=== PATIENT | female | born 1950 | race Caucasian/White ===

== ENCOUNTER 2020-05-16 06:55 | Inpatient (IN) ==
[~2020-05-16 06:55] MED LIST: HEPARIN (PORCINE) 1000 UNIT/ML 10 ML (CATH LAB USE ONLY) ONE; NITROGLYCERIN/D5W 100MCG/ML 20ML SYR ONE; niCARdipine HCL INJ 2.5 MG/ML 10 ML AMP ONE
[2020-05-16] MEDS ORDERED: fentaNYL citrate 100 MCG/2 ML VIAL ONE ×5 (07:58→15:21)
[2020-05-16] MEDS ORDERED: MIDAZOLAM HCL 1 MG/ML 2ML VIAL ONE ×7 (07:58→15:21)
--- NOTE | 2020-05-16 08:31 | History & Physical Bridge Note ---
Date of Service May 16, 2020 History & Physical Bridge Note I have examined the patient, reviewed the History & Physical and in the interval since the performance of the History & Physical I have noted the following changes of clinical significance: no changes noted
--- NOTE | 2020-05-16 08:32 | Pre Anesthesia Assessment ---
Date of Service May 16, 2020 Pre Sedation Assessment Vital Signs Temp Pulse Resp BP Pulse Ox 05/16/20 07:12 36.5 C 102 H 16 164/90 H 98 Cardiovascular + irregularly irregular + S1 normal and + S2 normal Respiratory normal respiratory effort, lungs clear to auscultation Pre-Sedation Airway Assessment Smoking Status: Former smoker Hx Sleep Apnea: No Short, Thick Neck: No Thyromental Distance: > or= 3.5 Finger Breadths Oral Cavity: + WNL Mallampati Class: III ASA: ASA4 NPO Status Date of Last Intake of Fluids: 05/16/20 Time of Last Intake of Fluids: 06:10 Last Oral Intake of Fluids Comment: sip with meds Date of Last Intake of Solid Food: 05/15/20 Time of Last Intake of Solid Foods: 18:00 Procedure Planning Contraindications for Sedation: none Current Medications Reviewed: Yes Notes The planned sedation has been discussed with the patient. Informed Consent was obtained. I have identified the patient, determined the appropriateness of sedation and have assessed the patient immediately prior to the procedure. All medicine(s) and interventions are by my order.
--- NOTE | 2020-05-16 09:09 | Post Anesthesia Assessment ---
Date of Service May 16, 2020 Post Sedation Assessment Vital Signs Temp Pulse Resp BP Pulse Ox 05/16/20 07:12 36.5 C 102 H 16 164/90 H 98 Recovery Score Activity: Moves 4 extremities Respiration: Deep Breath/Cough Circulation: +/-20% PreAnes Value Consciousness: Fully Awake Oxygen Saturation: > 92% On Room Air Discharge Sedation Level of Care: Phase I Post Sedation Plan On clinical assessment, the patient appears to have tolerated the sedation without complications. Patient is recovering as anticipated. Patient will continue to be monitored by nursing and may be discharged when sedation discharge criteria are met per below protocol. Upon Completions of procedure up to 15 minutes continue every 5 minute vital signs and the P.A.R. score; then discharge to a Phase I or Fast Track to Phase II per the following guidelines: * Discharge Patient to appropriate Phase II area if PAR is 8 or greater or return to pre- procedure baseline. The post - procedure orders will be as directed. * If PAR score is less than 8 or not return to pre-procedure baseline then patient will follow Phase I monitoring till PAR is reached for Phase II. The Phase I may be done in procedure room or may call to secure a Phase I area. * If naloxone or flumazenil are used for reversal, hold in Phase I for continued monitoring from when last reversal dose was given for a minimum of 60 minutes or longer pending the nurse and/or physician discretion of patient condition before discharge to Phase II. Please call the Sedation Physician to re-evaluate and complete post-note for discharge to Phase II area. Do NOT discharge from procedure sedation or Phase 1 until post- sedation evaluation note is complete by procedure /sedation MD Sedation Discharge Instructions to be given to the patient at discharge to home.
--- NOTE | 2020-05-16 09:21 | Cardiac Catheterization ---
Cardiac Cath Procedure Full Procedure Date May 16, 2020 Pre-Procedure Diagnosis Pre-Procedure Diagnosis: Positive Stress Test AUC Score AUC Score: 7 Post-Procedure Diagnosis Post-Procedure Diagnosis: Severe CAD and Normal Intracardiac Pressures Procedure(s) Performed Procedure(s) Performed: Coronary Angiography and Left Heart Cath Supervisor Publications Karl Millan DO It Systems Administrator(s) Ab CORRUGATED FASTENER DRIVER Estimated Blood Loss Estimated Blood Loss: 5cc Medication(s) Medication(s): Fentanyl, Lidocaine 1%, Nicardipine, Nitroglycerin and Versed Summary of Findings 75% proximal LAD Hemodynamics Rest Ao:: 148/82/108 Final Ao: 160/79/113 LV: 158/1/11 Recommendations Recommendations: PCI without planned CABG Specimens Specimens: None Radiation Exposure (mGy) 952 Contrast (mls) 45 Fluids (cc crystalloids) Fluids (cc crystalloids): 100 nss Drains Drains: n/a Anesthesia Moderate sedation. Start 0835. End 0856. Sedation monitor: Liza RN. Procedural Complication(s) None Disposition Patient remained in Garbage Truck Driver for PCI of the LAD I attest to the content of the Intraoperative Record and any orders documented therein. Any exceptions are noted below. ACC Data: Garbage Truck Driver Cardiac Status Clinical evaluation leading to the procedure CAD Presenation: Positive Stress Test Anginal Classification: No Symptoms (Activity limited by hip pain.) Heart Failure: No Stress Echocardiogram: Yes - Positive and Risk/Extent of Ischemia (Intermediate) Coronary Anatomy Dominant: Right Left Main (% Stenosis): Normal LAD (% Stenosis): Proximal (75%), Mid (20%) and Distal (30%) D1 (% Stenosis): Ostial (60%) Circumflex (% Stenosis): Mid (20%) OM1 (% Stenosis): Normal (1.5mm vesssel) OM2 (% Stenosis): Normal L PL1 (% Stenosis): Normal RCA (% Stenosis): Proximal (20%) and Mid (20%, mild calcification) R PDA (% Stenosis): Normal R PL1 (% Stenosis): Normal R PL2 (% Stenosis): Normal Diagnostic Physicians Name: Karl Millan DO Status: Elective Closure Device Percutaneous Entry Location: Radial Closure Device: Radial Band Recommendations: PCI without planned CABG Intraprocedure Events Significant Disection: No Perforation: No
[2020-05-16] MEDS ORDERED: HEPARIN (PORCINE) 1000 UNIT/ML 10 ML (CATH LAB USE ONLY) ONE ×2 (09:31→13:51)
[2020-05-16] MEDS ORDERED: CLOPIDOGREL BISULFATE 300 MG TAB ONE (09:59)
--- NOTE | 2020-05-16 10:03 | Post Anesthesia Assessment ---
Date of Service May 16, 2020 Post Sedation Assessment Vital Signs Temp Pulse Resp BP Pulse Ox 05/16/20 07:12 97.7 F 102 H 16 164/90 H 98 Recovery Score Activity: Moves 4 extremities Respiration: Deep Breath/Cough Circulation: +/-20% PreAnes Value Consciousness: Fully Awake Oxygen Saturation: > 92% On Room Air Discharge Sedation Level of Care: Fast Track Phase II Post Sedation Plan On clinical assessment, the patient appears to have tolerated the sedation without complications. Patient is recovering as anticipated. Patient will continue to be monitored by nursing and may be discharged when sedation discharge criteria are met per below protocol. Upon Completions of procedure up to 15 minutes continue every 5 minute vital signs and the P.A.R. score; then discharge to a Phase I or Fast Track to Phase II per the following guidelines: * Discharge Patient to appropriate Phase II area if PAR is 8 or greater or return to pre- procedure baseline. The post - procedure orders will be as directed. * If PAR score is less than 8 or not return to pre-procedure baseline then patient will follow Phase I monitoring till PAR is reached for Phase II. The Phase I may be done in procedure room or may call to secure a Phase I area. * If naloxone or flumazenil are used for reversal, hold in Phase I for continued monitoring from when last reversal dose was given for a minimum of 60 minutes or longer pending the nurse and/or physician discretion of patient condition before discharge to Phase II. Please call the Sedation Physician to re-evaluate and complete post-note for discharge to Phase II area. Do NOT discharge from procedure sedation or Phase 1 until post- sedation evaluation note is complete by procedure /sedation MD Sedation Discharge Instructions to be given to the patient at discharge to home.
--- NOTE | 2020-05-16 10:05 | Post Operative Brief Note ---
Cardiology Brief Post Op Date of Surgery May 16, 2020 Pre & Post Diagnosis Coronary artery disease Procedure -- Medical I D Sales Rafiq Baker MD Production Dispatcher Ab Estimated Blood Loss 15 Findings See Below Severe proximal LAD disease at bifurcation with D1. Successful PCI of proximal LAD with single JACK (2.5 x 18 mm Bon; post-dilated with 3.5 NC). Anesthesia Type RN Sedation Complications none Disposition Disposition: Recovery Room Overlapping Procedure I was present for: the critical portions of procedure.
[2020-05-16] MEDS ORDERED: hydrALAZINE HCL 20 MG/ML VIAL ONE (12:38)
[2020-05-16] MEDS ORDERED: NITROGLYCERIN SL 0.4 MG/TAB TAB ONE (13:15)
[2020-05-16] MEDS ORDERED: METOPROLOL TARTRATE 1 MG/ML VIAL IV ONE (13:15)
[2020-05-16] MEDS ORDERED: NOREPINEPHRINE BITARTRATE 1 MG/ML 4 ML VIAL (CATH LAB USE ONLY) ONE (13:33)
[2020-05-16] MEDS ORDERED: MoRPHine SULFATE 2 MG/ML CARP ONE (13:36)
[2020-05-16] MEDS ORDERED: niCARdipine HCL INJ 2.5 MG/ML 10 ML AMP ONE (13:51)
[2020-05-16] MEDS ORDERED: NITROGLYCERIN/D5W 100MCG/ML 20ML SYR ONE (13:52)
[2020-05-16] MEDS ORDERED: RAPID SEQUENCE INDUCTION BAG ONE (13:56)
[2020-05-16] MEDS ORDERED: PROPOFOL IV EMULSION 10 MG/ML 20 ML VIAL IV ONE (14:00)
--- NOTE | 2020-05-16 14:13 | Cardiology Progress Note ---
Date of Service May 16, 2020 Assessment & Plan (1) Presence of stent in LAD coronary artery: (2) Pericardial effusion: Patient reassessed after having had presented for outpatient diagnostic cardiac catheterization which yielded high-grade LAD lesion for which patient underwent PCI, LAD stent. While recovering, patient noted to have shortness of breath and hypotension. Patient was placed in Trendelenburg position, IV fluids were initiated, and systolic blood pressure was as low as 70 mmHg, improved to 90 mmHg with fluid resuscitation. Stat bedside echocardiogram was performed and reviewed by the undersigned as well as Dr. Baker, with findings of normal biventricular chamber size, normal biventricular systolic function, no regional wall motion abnormalities, no evidence of myocardial perforation. Patient was found to have an enlarging circumferential pericardial effusion with echodensity within the pericardial space consistent with fresh coagulum. Arrangements have been made for emergent pericardiocentesis to be performed by Dr. Baker of interventional cardiology. Due to current visitation restrictions related to the ID- pandemic, there are no visitors permitted at the bedside or in the post procedure waiting room. I therefore called the patient's , Zeus, and updated him with regards to the developments and plan. Subjective Patient seen at the bedside in room 1 of the cardiac recovery suite. Shortness of breath and hypotension noted on recovering status post cardiac catheterization with PCI, stent to the LAD performed earlier today. Dr. Baker already at the bedside at the time of my arrival. Physical Exam Physical Exam: Temp Pulse Resp BP Pulse Ox 36.5 C 88 18 110/82 95 05/16/20 07:12 05/16/20 13:15 05/16/20 13:15 05/16/20 13:15 05/16/20 13:15 Ill in appearance Results & Data ([facility]) Vital Signs (Past 12 Hours) Vital Signs Temp Pulse Resp BP Pulse Ox 05/16/20 13:15 88 18 110/82 95 05/16/20 13:00 100 H 18 127/106 H 98 05/16/20 12:45 84 18 143/101 H 96 05/16/20 12:30 96 H 18 152/106 H 99 05/16/20 12:15 100 H 18 148/105 H 99 05/16/20 12:00 88 18 182/108 H 99 05/16/20 11:45 90 18 156/102 H 97 05/16/20 11:30 99 H 18 148/98 H 97 05/16/20 11:15 99 H 18 139/116 H 97 05/16/20 11:00 94 H 18 173/109 H 97 05/16/20 10:45 85 18 170/89 H 97 05/16/20 10:30 99 H 18 155/99 H 97 05/16/20 10:15 108 H 18 167/110 H 97 05/16/20 10:05 88 18 158/111 H 98 05/16/20 07:12 36.5 C 102 H 16 164/90 H 98
--- NOTE | 2020-05-16 14:17 | Anesthesia Procedure Note ---
Anesthesia Procedure Note Intubation Note Vital Signs: called to boat laborer for emergent intubation - LAD stent placed earlier today - now with pericardial effusion and respiratory distress - intubation needed for procedure to resolve issue. Pt on norepi drip and with that vitals have been stable. O2 sats remained in high 90's throughout. Indication for intubation: Respiratory distress Consent: Risk / Benefits Reviewed With: Emergency Monitors attached: Blood Pressure, CO2, EKG and Pulse Oximetry Time out completed: Yes Premedication: Propofol (mg) (70) and Etomidate (mg) (12) Paralytic medication: Succinylcholine (mg) Intubation technique: Adequate preoxygenation (O2 as could - patient fighting mask), RSI and Cricoid pressure Equipment: MAC (3) and Glidescope View: Grade 2 Endotracheal tube: 7.0 Attempts: 1 and Atraumatic Tube placement confirmation: auscultation and Positive CO2 detection Post-procedure: Pt hemodynamically stable and No complication
[2020-05-16] MEDS ORDERED: ICU PROTOCOL FOR HYPERGLYCEMIA PRN (14:18)
--- NOTE | 2020-05-16 15:23 | History & Physical Report ---
Date of Service May 16, 2020 Assessment & Plan (1) Cardiac tamponade: Pt underwent PCI with single JACK to proximal LAD today - subsequently in recovery, she developed acute onset of SOB and hypotension. On stat ECHO noted to have pericardial effusion with tamponade - s/p pericardiocentesis this afternoon. Now in ICU post-procedure. Intubated in analytical laboratory technician prior to pericardiocentesis but post-procedure was successfully extubated. Levophed drip successfully discontinued. - Monitor closely in ICU - Additional management per cardiology and critical care (2) Pericardial effusion: See plan for #1 (3) CAD (coronary artery disease): s/p JACK to LAD today - Monitor in ICU - Management per cardiology (4) Chronic atrial fibrillation: Anticoagulation currently on hold - Currently tachycardic but metoprolol on hold due to hypotension. Continue to monitor closely (5) Dyslipidemia: On rosuvastatin at baseline - will use Lipitor while pt admitted (6) HTN (hypertension): On metoprolol and Cozaar as outpatient - currently on hold due to hypotension. Will monitor and resume once more stable and BP improves (7) Hypothyroidism: Checking TSH - will resume levothyroxine dose based on that result (8) Type 2 diabetes mellitus: - ICU hyperglycemia protocol - consult pharm for glycemic management Pt seen and reviewed with collaborating physician Dr. Love. Plan of care discussed and as outlined above. Case discussed with cardiology, Dr. Marino. Martin Ceballos PA-C History of Present Illness Chief Complaint: Abnormal stress test Primary Care Provider: Thompson Berger MD This is a 69 y/o female with a PMH of atrial fibrillation on chronic anticoagulation, DM2, hypothyroidism, HTN, dyslipidemia, and obesity who presented for an outpatient diagnostic cardiac catheterization due to an abnormal stress test. Pt was initially scheduled to undergo total hip arthoplasty this month but pre-operative work-up included an abnormal dobutamine stress test that was borderline positive for inducible ischemia. Surgery was postponed and diagnostic cath was scheduled for today. Procedure revealed LAD stenosis so converted to a therapeutic cath and drug-eluting stent placed in the proximal LAD. Post-cath, pt apparently developed shortness of breath and hypotension with SBP as low as 70. Stat ECHO revealed an enlarging pericardial effusion with tamponade so pt taken emergency back to analytical laboratory technician for a pericardiocentesis. Emergently intubated prior to second procedure. We have been asked to assist with the ICU admission to our service. Pt seen in the ICU post-procedure and is currently confused and agitated due to the sedation so history was unobtainable. [facility] records and [facility] charts were extensively reviewed. Allergies Allergy/AdvReac Type Severity Reaction Status Date / Time dofetilide [From Tikosyn] AdvReac Tachycardia Verified 05/16/20 07:23 Home Medications Medication Instructions Recorded Confirmed Type Rybelsus 7 mg PO DAILY 05/16/20 05/16/20 History apixaban 5 mg PO BID 05/16/20 05/16/20 History aspirin [Ecotrin Low Strength] 81 mg PO DAILY 14 Days #14 tab 05/16/20 Rx clopidogrel 75 mg PO DAILY #30 tab 05/16/20 Rx cyanocobalamin (vitamin B-12) 1,000 mcg PO DAILY 05/16/20 05/16/20 History digoxin 250 mcg PO DAILY 05/16/20 05/16/20 History levothyroxine [Synthroid] 50 mcg PO DAILY 05/16/20 05/16/20 History losartan [Cozaar] 100 mg PO DAILY 05/16/20 05/16/20 History metformin 1,000 mg PO BID 05/16/20 05/16/20 History metoprolol succinate 200 mg PO DAILY 05/16/20 05/16/20 History rosuvastatin [Crestor] 5 mg PO DAILY 05/16/20 05/16/20 History Past Med/Surg History Medical History Chronic atrial fibrillation Dyslipidemia HTN (hypertension) Hypothyroidism Obesity Type 2 diabetes mellitus Surgical History History of appendectomy History of cataract surgery Family History Mother Diabetes Uterine cancer Sister Diabetes Kidney disease Father Heart disease Hypertension Kidney disease Social History Smoking Status: Former smoker Hx Alcohol Use: Yes Hx Substance Use: No Beliefs That Will Affect Care: None Current Living Situation: Spouse Feels Safe at Home: Yes Safety Concerns: Feels Safe At This Time Assistive Devices: Cane Review of Systems Review of Systems: Unobtainable due to cognitive status Physical Exam Constitutional: WD/WN, vitals as above agitated, frequently yelling Neck: trachea midline Respiratory: Auscultation: lungs clear to auscultation bilaterally, + diminished lung sounds (but poor inspiratory effort) and + wheezes; no rales and no rhonchi Cardiovascular: Rate/Rhythm: + tachycardic and + irregularly irregular Extremities: no pedal edema Gastrointestinal (Abdomen): Inspection/Auscultation: normal bowel sounds; abdomen not distended Percussion/Palpation: abdomen soft Musculoskeletal: mitts in place on bilateral hands Skin: no rashes, warm and dry Neurologic: + confused Results & Data Results & Data ([facility]) Vital Signs (Past 12 Hours) Vital Signs Temp Pulse Resp BP Pulse Ox 05/16/20 13:15 88 18 110/82 95 05/16/20 13:00 100 H 18 127/106 H 98 05/16/20 12:45 84 18 143/101 H 96 05/16/20 12:30 96 H 18 152/106 H 99 05/16/20 12:15 100 H 18 148/105 H 99 05/16/20 12:00 88 18 182/108 H 99 05/16/20 11:45 90 18 156/102 H 97 05/16/20 11:30 99 H 18 148/98 H 97 05/16/20 11:15 99 H 18 139/116 H 97 05/16/20 11:00 94 H 18 173/109 H 97 05/16/20 10:45 85 18 170/89 H 97 05/16/20 10:30 99 H 18 155/99 H 97 05/16/20 10:15 108 H 18 167/110 H 97 05/16/20 10:05 88 18 158/111 H 98 05/16/20 07:12 36.5 C 102 H 16 164/90 H 98 Laboratory Results Laboratory Results - last 24 hr 05/16/20 05/16/20 05/16/20 09:27 09:48 15:16 POC Hgb 13.6 POC Hct 40 Activ Coag Time Kaolin 219 H 235 H POC pH 7.33 L POC pCO2 47 H POC pO2 > 420 H POC HCO3 25 H POC Total CO2 26 POC Base Excess -1.0 POC ABG O2 Sat 100.0 H POC Sodium 139 POC Potassium 4.3 Medications Administered Discontinued Medications Fentanyl Citrate (Fentanyl Citrate 100 Mcg/2 Ml Vial) Confirm Administered Dose 100 mcg .ROUTE .STTagMan-MED ONE Stop: 05/16/20 07:59 Last Increment: 05/16/20 09:57 Dose: 75 mcg Documented by: [id number] Heparin Sodium (Porcine) (Heparin (Porcine) 1000 Unit/Ml 10 Ml (Heel Room Supervisor Use Only)) Confirm Administered Dose 10,000 units .ROUTE .STTagMan-MED ONE Stop: 05/16/20 06:55 Last Admin: 05/16/20 09:38 Dose: 10,000 units Documented by: [id number] Heparin Sodium (Porcine) (Heparin (Porcine) 1000 Unit/Ml 10 Ml (Heel Room Supervisor Use Only)) Confirm Administered Dose 10,000 units .ROUTE .BringMeTheNews-MED ONE Stop: 05/16/20 09:32 Last Admin: 05/16/20 09:57 Dose: 6,000 units Documented by: [id number] Heparin Sodium/Sodium Chloride (Heparin In Nss Infusion 1000 Unit/500 Ml (2 U/Ml) Bag) Confirm Administered Dose 3,000 units IV .BringMeTheNews-MED ONE Stop: 05/16/20 06:56 Last Admin: 05/16/20 08:13 Dose: 3,000 units Documented by: [id number] Hydralazine HCl (Hydralazine Hcl 20 Mg/Ml Vial) Confirm Administered Dose 20 mg .ROUTE .STTagMan-MED ONE Stop: 05/16/20 12:39 Last Increment: 05/16/20 12:41 Dose: 10 mg Documented by: [id number] Midazolam HCl (Midazolam Hcl 1 Mg/Ml 2ml Vial) Confirm Administered Dose 2 mg .ROUTE .STTagMan-MED ONE Stop: 05/16/20 07:59 Last Admin: 05/16/20 08:52 Dose: 2 mg Documented by: [id number] Midazolam HCl (Midazolam Hcl 1 Mg/Ml 2ml Vial) Confirm Administered Dose 2 mg .ROUTE .STTagMan-MED ONE Stop: 05/16/20 08:58 Last Admin: 05/16/20 09:39 Dose: 2 mg Documented by: [id number] Nicardipine HCl (Nicardipine Hcl Inj 2.5 Mg/Ml 10 Ml Amp) Confirm Administered Dose 25 mg .ROUTE .STTagMan-MED ONE Stop: 05/16/20 06:55 Last Admin: 05/16/20 08:13 Dose: 25 mg Documented by: [id number] Nitroglycerin/Dextrose (Nitroglycerin/D5w 100mcg/Ml 20ml Syr) Confirm Administered Dose 2,000 mcg .ROUTE .[facility] ONE Stop: 05/16/20 06:56 Last Admin: 05/16/20 08:13 Dose: 2,000 mcg Documented by: [id number] Code Status & VTE Plan VTE Prophylaxis Plan VTE Prophylaxis will be ordered: Yes Supervising Physician Co-Signing Physician Notes Patient is a 69-year-old female with history of chronic atrial fibrillation on anticoagulation, diabetes mellitus, hypothyroidism and other medical problems was seen and examined after having elective PCI for LAD stenosis for an abnormal outpatient stress test and urgent pericardiocentesis for cardiac tamponade. Patient unable to provide much history secondary to preprocedural sedation. She is currently extubated. Alert awake but not oriented. Most of the history is obtained from records, card boxer and outpatient records. Please review HPI for complete details of presentation. On exam patient is obese, mild distress, normocephalic atraumatic, EOMI, lungs are clear to auscultation, normal breath sounds, irregularly irregular, tachycardia, no murmur, trace pedal edema, abdomen soft, nontender, normal bowel sounds, complete neuro exam could not be performed currently. Grossly able to move all extremities. Patient is admitted for management of cardiac tamponade, coronary artery disease s/p PCI, atrial fibrillation. Continue aspirin, Plavix as per cardiology. Started on Lipitor. Check lipid panel. Hold anticoagulation for now. Check thyroid function tests. Resume levothyroxine as able. Hold Metformin. Utilize insulin therapy while hospitalized. Resume metoprolol, digoxin when blood pressure is more stable. Appreciate bottle and glass inspector, cardiology input. I personally reviewed the record. Patient is interviewed and examined at bedside. Patient's care is coordinated with Lula Ceballos PA-C . Please refer to the documentation above for details of patient's presentation and for discussion of other issues. (1) Type 2 diabetes mellitus Diabetes mellitus complication status: without complication Diabetes mellitus residential insulin use: without residential use Qualified Code(s): E11.9 - Type 2 diabetes mellitus without complications (2) Hypothyroidism Hypothyroidism type: unspecified Qualified Code(s): E03.9 - Hypothyroidism, unspecified (3) HTN (hypertension) Hypertension type: unspecified Qualified Code(s): I10 - Essential (primary) hypertension
[2020-05-16 15:29] LABS: iSTAT Arterial Blood Gas HCO3 25 meg/L (19-24); iSTAT Arterial Blood Gas pCO2 47 mmHg (35-46); iSTAT Arterial Blood Gas pH 7.33 (7.35-7.45); iSTAT Arterial Blood Gas pO2 > 420 mmHg (80-95); iSTAT Carbon Dioxide 26 mmol/L (24-31); iSTAT Hematocrit 40 % (37-47); iSTAT Hemoglobin 13.6 g/dl (12.0-16.0); iSTAT Potassium 4.3 mmol/L (3.3-5.0); iSTAT Sodium 139 mmol/L (135-144)
[2020-05-16] MEDS ORDERED: SODIUM CHLORIDE 0.9% 1000ML 750 ML IV SCH (15:30)
--- NOTE | 2020-05-16 16:33 | Critical Care Consultation ---
Date of Consultation May 16, 2020 Assessment & Plan (1) Cardiac tamponade: Reason Critically Ill: 69 yo F PMHx AFib on chronic AC, DM2, CAD, HTN, hypothyroidism who presented to hospital today for cardiac catheterization for positive stress test during pre-operative clearance for hip arthroplasty. Today had PCI to proximal LAD performed, and in recovery became hypotensive to 70s systolic. Bedside Echo showed enlarged circumferential pericardial effusion and patient was taken for emergent pericardiocentesis. Patient was emergently intubated in procedure. Admitted to ICU due to intubation and post- pericardiocentesis for cardiac tamponade. Neuro Sedation: none Analgesia: Morphine 2mg q4h prn pain. - No history of neurologic disorder. Was not hypoxic prior to intubation. Received Versed, propofol, Fentanyl for intubation and procedure but no sedation currently. - Was intubated on minimal settings; now extubated and saturating well. - Is tracking and opens eyes to voice, and is oriented to name and , however not to place or circumstance. Requires frequent reminding that she is in the hospital and that she cannot get out of bed right now. - 1:1 sitter ordered until patient is more oriented. - Consider Haldol prn agitation if patient continues to be disoriented despite pain medication and time off from sedatives. Cardiac Cardiac tamponade: - This afternoon post-catheterization patient became suddenly hypotensive and was found on Echo to have enlarging circumferential pericardial effusion. - Taken to OR by Dr. Baker for emergent pericardiocentesis. - Was on norepinephrine for pressure support prior to pericardiocentesis; has since been titrated off and BP stable. CAD: - Underwent dobutamine stress Echo on 05/07 which was abnormal. - Today had elective catheterization which showed proximal LAD stenosis. - PCI x1 performed. - Hgb A1c, lipid panel in AM. - Hold home metoprolol, losartan in the setting of hypotension. Resume when patient's BP returns to normotension. - Continue DAPT. Atrial fibrillation: - At home is on Eliquis for anticoagulation and metoprolol for rate control. - Hold Eliquis in setting of acute bleeding. - Hold metoprolol in setting of hypotension. Respiratory - Was intubated on minimal settings 2/2 pain and hypotension prior to procedure; now extubated and saturating well. - Unclear if patient has a history of ANU/OHS. BiPAP on standby if needed. GI - Ulcer ppx with Protonix IV. RENAL/LYTES - - No history of kidney disease. - BMP with creatinine 0.77. - Mg 1.77, repleted with Mg Sulfate 1g IV x1. - Repeat BMP AM. - - No present concerns. - Wilcox for now for strict Is/Os. ENDO - - No history of thyroid disease. TSH with AM labs. DM2: - BSG 162 on admission. - Hold Rybelsus. ICU hyperglycemia protocol. - Hgb A1c with AM labs. HEME - No previous Hgb on file. Hgb today 13.6 immediately post-procedure. - With large bloody pericardial effusion today. - Monitor H/H closely given 200cc pericardial effusion. ID - No present infectious concerns. - WBC count 10.83. - Monitor fever curve. INTEGUMENTARY - Catheterization site is clean and dry and without hematoma. - Pericardial drain in place, draining minimally. LINES/IV ACCESS - PIVs intact. - Pericardial drain. - Wilcox. DVT PROPHYLAXIS - SCDs. CODE STATUS - FULL CODE. Thank you for allowing us to be part of this patient's care. Please refer to Dr. Moreno's documentation for any further recommendations. (2) CAD (coronary artery disease): (3) Presence of stent in LAD coronary artery: (4) Type 2 diabetes mellitus: (5) Hypothyroidism: (6) HTN (hypertension): (7) Dyslipidemia: (8) Chronic atrial fibrillation: Supervising Physician Co-Signing Physician Notes Dr. Baird was the resident-physician during care of patient. I separately evaluated patient for loya portions of the history and the exam. I was present during the critical portion of medical decision making, and I discussed the case with the resident. I generally agree with the findings and plan except for any additions/exceptions noted. Patient seen and examined at bedside. She was intubated at time of examination. She was on CPAP 5 getting good tidal volumes breathing at 21-22. Although she was not following commands. She was moving all her extremities. Patient is s/p pericardiocentesis which was likely a complication from cardiac cath which the patient came in with. Patient has catheter in the pericardium placed. We will try to extubate the patient and see how she does. Pain medication. We will keep the patient on 1 is to 1 as patient is still delirious could be from pain or from the sedation that she got. QTC is 440. Haloperidol 2.5 mg every 6 hours as needed. Please note the above document was generated using voice recognition software. It may contain grammatical, syntax or spelling errors.Any formal questions or concerns about the content, text or information contained within the body of this dictation should be directly addressed to the provider for clarification. History of Present Illness Reason for Consultation: Cardiac tamponade post-pericardiocentesis; intubated Requesting Physician: Dr. Marino, Cardiology. Attending Physician: Govind Love MD History of Present Illness 69 yo F PMHx AFib on chronic AC, DM2, CAD, HTN, hypothyroidism who presented to hospital today for cardiac catheterization for positive stress test during pre- operative clearance for hip arthroplasty. Today had PCI to proximal LAD performed, and in recovery became hypotensive to 70s systolic. Bedside Echo showed enlarged circumferential pericardial effusion and patient was taken for emergent pericardiocentesis. Patient was emergently intubated in procedure. Patient was not hypoxic prior to intubation. Admitted to ICU due to intubation and post-pericardiocentesis for cardiac tamponade. On my interview patient is oriented to name and date of , but keeps forgetting she is in the hospital. Complains of substernal chest pain at the area near her drain site, and a sensation of shortness of breath. No complaints of abdominal pain, headache. Still somewhat sedated postpericardiocentesis. Oxygenating well on 2 L nasal cannula, drain with minimal output. Tachycardic to 110s, BP normotensive. Allergies Allergy/AdvReac Type Severity Reaction Status Date / Time dofetilide [From Tikosyn] AdvReac Tachycardia Verified 05/16/20 07:23 Home Medications Medication Instructions Recorded Confirmed Type Rybelsus 7 mg PO DAILY 05/16/20 05/16/20 History apixaban 5 mg PO BID 05/16/20 05/16/20 History aspirin [Ecotrin Low Strength] 81 mg PO DAILY 14 Days #14 tab 05/16/20 Rx clopidogrel 75 mg PO DAILY #30 tab 05/16/20 Rx cyanocobalamin (vitamin B-12) 1,000 mcg PO DAILY 05/16/20 05/16/20 History digoxin 250 mcg PO DAILY 05/16/20 05/16/20 History levothyroxine [Synthroid] 50 mcg PO DAILY 05/16/20 05/16/20 History losartan [Cozaar] 100 mg PO DAILY 05/16/20 05/16/20 History metformin 1,000 mg PO BID 05/16/20 05/16/20 History metoprolol succinate 200 mg PO DAILY 05/16/20 05/16/20 History rosuvastatin [Crestor] 5 mg PO DAILY 05/16/20 05/16/20 History Patient History Medical History Chronic atrial fibrillation Dyslipidemia HTN (hypertension) Hypothyroidism Obesity Type 2 diabetes mellitus Surgical History History of appendectomy History of cataract surgery Family History Mother Diabetes Uterine cancer Sister Diabetes Kidney disease Father Heart disease Hypertension Kidney disease Social History Smoking Status: Former smoker Hx Alcohol Use: Yes Hx Substance Use: No Beliefs That Will Affect Care: None Current Living Situation: Spouse Feels Safe at Home: Yes Safety Concerns: Feels Safe At This Time Assistive Devices: Cane Review of Systems Review of Systems: All systems reviewed & are unremarkable except as noted in HPI & below Constitutional: no fever, no chills and no malaise Respiratory: + dyspnea (Subjective, saturating well on 2 L nasal cannula); no cough Cardiovascular: + chest pain; no palpitations and no edema Gastrointestinal: no abdominal pain Neurologic: no headache(s) Physical Exam Physical Exam: VITAL SIGNS - Vital signs and nursing notes were reviewed. GENERAL - 69 yo F well developed, obese, intermittently distressed asking to get out of bed. SKIN - Without rashes. Catheterization site without hematoma. Pericardial drain with minimal drainage. HEAD - NC/AT. EYES - PERRL. Sclera anicteric. Palpebral conjunctiva pink and moist with no injection noted. EARS - No deformities of external structures noted on gross examination bila terally. NOSE - Midline and without cyanosis. No epistaxis or purulent drainage noted. MOUTH/OROPHARYNX - No perioral cyanosis. NECK - Supple to palpation. No nuchal rigidity. LUNGS - Clear to auscultation bilaterally, poor air movement throughout. Oxygen saturation 96% on room air. CARDIAC - Heart rate irregularly irregular. No murmur, rubs, or gallops appreciated. ABDOMEN - Soft, nontender, nondistended, normal bowel sounds. EXTREMITIES - No clubbing or peripheral cyanosis. No peripheral edema present. Radial and dorsalis pedis pulses palpated bilaterally. NEUROLOGIC - Moves all extremities equally. Alert to voice, eyes track, oriented to name and date of but not to place or situation. Results & Data Results & Data ([facility]) Vital Signs (Past 12 Hours) Vital Signs Temp Pulse Resp BP Pulse Ox 05/16/20 13:15 88 18 110/82 95 05/16/20 13:00 100 H 18 127/106 H 98 05/16/20 12:45 84 18 143/101 H 96 05/16/20 12:30 96 H 18 152/106 H 99 05/16/20 12:15 100 H 18 148/105 H 99 05/16/20 12:00 88 18 182/108 H 99 05/16/20 11:45 90 18 156/102 H 97 05/16/20 11:30 99 H 18 148/98 H 97 05/16/20 11:15 99 H 18 139/116 H 97 05/16/20 11:00 94 H 18 173/109 H 97 05/16/20 10:45 85 18 170/89 H 97 05/16/20 10:30 99 H 18 155/99 H 97 05/16/20 10:15 108 H 18 167/110 H 97 05/16/20 10:05 88 18 158/111 H 98 05/16/20 07:12 36.5 C 102 H 16 164/90 H 98 Resident Activity Tracking Resident Involvement: Resident Care Provided Care Provided: Adult Hospital Medicine
[2020-05-16 16:48] LABS: Basophils # (auto) 0.02 K/uL (0-0.2); Basophils % (auto) 0.2 %; Eosinophils # (auto) 0.03 K/uL (0-0.5); Eosinophils % (auto) 0.3 %; Hematocrit (blood only) 39.2 % (37-47); Immature Granulocytes # (auto) 0.01 K/uL (0.00-0.02); Immature Granulocytes % (auto) 0.1 %; Lymphocytes # (auto) 1.24 K/uL (1.2-3.4); Lymphocytes % (auto) 11.4 %; Mean Corpuscular Hgb Conc 33.2 g/dL (32-36); Mean Corpuscular Volume 96.6 fL (80-100); Mean Platelet Volume 10.4 fL (7.4-10.4); Monocytes % (auto) 5.5 %; Neutrophils # (auto) 8.93 K/uL (1.4-6.5); Neutrophils % (auto) 82.5 %; Platelet Count 253 K/uL (130-400); RDW Coefficient of Variation 12.5 % (11.5-14.5); Red Blood Count 4.06 M/uL (4.2-5.4); White Blood Count 10.83 K/uL (4.8-10.8)
[2020-05-16] MEDS ORDERED: MoRPHine SULFATE 2 MG/ML CARP IV STA (17:01)
[2020-05-16 17:04] LABS: BUN Creatinine Ratio 17.8 (10-20); Calcium 8.6 mg/dl (8.5-10.1); Creatinine Clr Calc Pharmacy 79.9 ml/min; Est GFR (Non-African American) 77.7; Magnesium 1.7 mg/dl (1.8-2.4); Phosphorus 3.9 mg/dl (2.5-4.9)
[2020-05-16] MEDS ORDERED: MoRPHine SULFATE 2 MG/ML CARP IV PRN ×2 (17:12→21:00)
[2020-05-16] MEDS ORDERED: SUCCINYLCHOLINE CHLORIDE 20 MG/ML 10 ML VIAL IV ONE (17:44)
[2020-05-16] MEDS ORDERED: ETOMIDATE 2 MG/ML 20 ML VIAL IV ONE (17:44)
[2020-05-16] MEDS ORDERED: MAGNESIUM SULFATE / D5W 1 GM/100 ML BAG IV ONE (17:45)
--- NOTE | 2020-05-16 17:47 | Cardiac Catheterization ---
[facility] Data: Cutter Hand Cardiac Status Clinical evaluation leading to the procedure CAD Presenation: Positive Stress Test Anginal Classification: CCS III Heart Failure: No Cardiogenic Shock within 24 Hours: No Cardiac Arrest within 24 Hours: No Imaging Studies Past 6 Months: Yes Stress Studies Past 6 Months: Yes Stress Echocardiogram: Yes - Positive and Risk/Extent of Ischemia (Intermediate) Diagnostic Physicians Name: Rafiq Baker MD Status: Elective Closure Device Percutaneous Entry Location: Radial Closure Device: Radial Band Recommendations: PCI without planned CABG PCI Indication: + Stress Test Lesion Segment Name: Proximal LAD Culprit Artery: Yes Stenosis Prior to Rx (%): 75 Chronic Total Occlusion: No IVUS: No FFR: No Pre-Procedure PONCHO Flow: 3 Previously Treated Lesion: No Lesion Complexity: Non-High/Non-C Lesion Length (mm): 12 Thrombus Present: No Bifurcation Lesion: Yes Guidewire Across Lesion: Stenosis Post-Procedure (%): 0 Post-Procedure PONCHO Flow: 3 Devices(s) Deployed: Yes Yes Intraprocedure Events Significant Disection: No Perforation: No Cardiac Cath Procedure Full Procedure Date May 16, 2020 Pre-Procedure Diagnosis Pre-Procedure Diagnosis: Positive Stress Test AUC Score AUC Score: 7 Post-Procedure Diagnosis Post-Procedure Diagnosis: Severe CAD and Successful PCI Procedure(s) Performed Procedure(s) Performed: Coronary Angiography and Drug Eluting Stent Manager Emergency Department Rafiq Baker MD Service Associate(s) Ab MORENO Estimated Blood Loss Estimated Blood Loss: 15 Medication(s) Medication(s): Clopidogrel, Fentanyl, Lidocaine 1%, Nicardipine, Nitroglycerin and Versed Summary of Findings Indication: Abnormal stress test Access: 6 Fr right radial artery Catheters: EBU 3.5 guide Findings: For full details of patient's coronary angiography please see cath report dictated by Dr. Millan. Briefly, patient found to have severe single vessel disease with a 70 to 80% proximal LAD stenosis at the takeoff of D1. Decision to proceed with PCI. -- PCI -- Antithrombotic therapy: Heparin, clopidogrel Procedure: Left main cannulated with EBU 3.5 guide BMW wire placed into first diagonal Rate Engineer 50 wire passed across lesion into distal vessel Attempted to assess further with IVUS but unable to pass calcified proximal stenosis. Proximal LAD lesion predilated with 2.0 and 2.5 compliant balloons Ostial D1 dilated with 2.0 balloon Dilated LAD lesion stented with 2.5 x 18 mm Bon drug-eluting stent Stent post-dilated with 3.0 noncompliant balloon Repeat IVUS showed well apposed stent with no apparent edge complications. Underexpanded in the midsegment and repostdilated with 3.5 NC balloon IC vasodilators administered for spasm Post procedure PONCHO 3 flow in LAD, D1, stent well expanded with minimal residual stenosis and no apparent cardiac complications. Arterial Closure: TR band Summary: 1. Successful PCI of proximal to mid LAD with single drug-eluting stent (2.5 x 18 mm Bon; postdilated with 3.5 NC). Recommendations: Plan for same-day discharge Loaded with clopidogrel 600 mg in Cutter Hand Triple therapy for 2 weeks with aspirin, clopidogrel and Eliquis. Then continue on clopidogrel and Eliquis for 6 months. Continue statin, and ASCVD risk factor modification Consult cardiac Rehab Hemodynamics Rest Ao:: 170/88/117 Final Ao: 149/81/111 LV: 158/11 Recommendations Recommendations: PCI without planned CABG Specimens Specimens: None Radiation Exposure (mGy) 3507 Contrast (mls) 160 Fluids (cc crystalloids) Fluids (cc crystalloids): 182 Drains Drains: None Anesthesia Moderate sedation. Procedural Complication(s) None Disposition Cutter [facility] Holding/Recovery I attest to the content of the Intraoperative Record and any orders documented therein. Any exceptions are noted below. [facility] Card Cath Procedure Codes Therapeutic Services & Ancillary Proc Procedure 1: Cardiovascular Tx and Anc Procedures: 55816 IV Ultrasound (Coronary or Graft) Moderate Sedation Procedure 1: Sedation/Anesthesia: 87034 Mod Sedation by the same physician; Ea [id number] Minutes Stenting Procedure 1: Cardiovascular Stent Procedures: 25027 Perc transcatheter placement of intracoronary stent(s), with ang PG Care Time/CCT Total # of Minutes Spent Total Time Spent with Patient: Total time spent is greater than 50% in coordination of care (as documented) at patient's floor/unit and/or counseling patient:
[2020-05-16] MEDS ORDERED: PHARMACY GLYCEMIC MGMT CONSULT PRN (17:54)
[2020-05-16] MEDS ORDERED: DEXTROSE 50% 50 ML SYRINGE IV PRN (18:00)
[2020-05-16] MEDS ORDERED: CARBOHYDRATES FOR HYPOGLYCEMIA PO PRN (18:00)
[2020-05-16] MEDS ORDERED: GLUCOSE 40% GEL 15 GM TUBE PO PRN (18:00)
[2020-05-16] MEDS ORDERED: GLUCAGON FOR INJ 1 MG VIAL IM PRN (18:00)
[2020-05-16] MEDS ORDERED: GLUCOSE 10 TABS/TUBE PO PRN (18:00)
[2020-05-16] MEDS ORDERED: HALOPERIDOL LACTATE 5 MG/ML 1 ML VIAL IV STA (18:06)
--- NOTE | 2020-05-16 18:11 | Cardiac Catheterization ---
[facility] Data: Meter Attendant Cardiac Status Clinical evaluation leading to the procedure CAD Presenation: Sx unlikely to be ischemic Heart Failure: No Cardiogenic Shock within 24 Hours: No Cardiac Arrest within 24 Hours: No Imaging Studies Past 6 Months: Yes Stress Studies Past 6 Months: Yes Stress Echocardiogram: Yes - Positive and Risk/Extent of Ischemia (Intermediate) Diagnostic Physicians Name: Rafiq Baker MD Status: Emergency Closure Device Percutaneous Entry Location: Femoral Closure Device: Mynx Recommendations: Management Recommendatons (Pericardiocentesis) Intraprocedure Events Significant Disection: No Perforation: No Cardiac Cath Procedure Full Procedure Date May 16, 2020 Pre-Procedure Diagnosis Pre-Procedure Diagnosis: Angina and Cardiothoracic Symptom (Pericardial effusion) AUC Score AUC Score: 9 Post-Procedure Diagnosis Post-Procedure Diagnosis: Mild CAD, Elevated Intracardiac Pressures and Cardiothoracic Finding (Pericardial effusion) Procedure(s) Performed Procedure(s) Performed: Coronary Angiography, Left Heart Cath, Pericardiocentesis and Procedure (CVC placement) Switchboard Troubleshooter Rafiq Baker MD Linoleum Floor Installer(s) Hector Estimated Blood Loss Estimated Blood Loss: 5 + 195 ml bloody pericardial fluid Medication(s) Medication(s): Fentanyl, Lidocaine 1% and Versed Summary of Findings Indication: Patient previously underwent uncomplicated PCI to proximal LAD earlier today. Initially felt well but later in recovery developed chest pressure radiating up into her neck, worse with inspiration and associated with shortness of breath. Initially hypertensive and treated with hydralazine, 1 sublingual nitroglycerin. Patient became hypotensive down to the 60s requiring IV fluid bolus and eventually norepinephrine infusion. Repeat ECGs showed permanent atrial fibrillation without significant new ST abnormalities. Echocardiogram showed normal LV function but new circumferential pericardial effusion with echogenic debris suggestive of hematoma. Patient brought back to Meter Attendant emergently for pericardiocentesis. Prior to beginning procedure in Meter Attendant was stable on minimal norepinephrine, maintaining O2 sats but due to general/respiratory distress was intubated by anesthesia prior to procedure. Access: 6Fr right common femoral artery, 6 Fr right common femoral vein Catheters: Diagnostic JL4, JR4 Findings: LM -luminal regularities LAD -proximal LAD stent widely patent. No significant edge complications. Mild residual disease in ostial/proximal D1. PONCHO III flow in LAD/diagonal. Questionable extravasation of contrast from very distal branch of LAD after wrapping around apex. Circumflex -medium caliber, 20% mid segment disease RCA -dominant, calcified the proximal to mid segment 20% disease. LVEDP - 23 Arterial Closure: Mynx Ultrasound guided pericardiocentesis: Pericardial fluid identified using ultrasound, appeared most amenable to subxiphoid approach Local anesthesia with lidocaine Pericardial space accessed using micropuncture needle under ultrasound/fluoroscopic guidance Intrapericardial position confirmed via saline contrast study through micropuncture sheath Pericardial drain placed over wire into pericardial space Removal of 195 mL of bloody fluid Post procedure echocardiogram showed only trivial remaining pericardial fluid Drain sutured into place and left to suction Norepinephrine weaned off Summary: 1. Widely patent proximal LAD stent with PONCHO-3 flow in LAD, first diagonal 2. Suspected very distal LAD wire perforation 3. Pericardial effusion with early tamponade 4. Successful pericardiocentesis with placement of pericardial drain and removal of 195 ml of bloody fluid Recommendations: Suspected wire perforation appears to involve very small distal LAD after has wrapped around apex. Minimal active extravasation on angiography. Recommend initial trial of conservative management. Admit to ICU for further monitoring. Drain to suction overnight Repeat echocardiogram in a.m. If minimal output, stable pericardial effusion on imaging possible drain removal tomorrow Continue DAPT with aspirin, clopidogrel Hold Eliquis Start colchicine Hemodynamics Rest Ao:: 139/83/106 Final Ao: 138/78/98 LV: 117/23 Recommendations Recommendations: Management Recommendatons (Pericardiocentesis) Specimens Specimens: None Radiation Exposure (mGy) -- Contrast (mls) 30 Fluids (cc crystalloids) Fluids (cc crystalloids): 1500 Drains Drains: None Anesthesia Propofol with anesthesia followed by moderate RN sedation Procedural Complication(s) None Disposition ICU I attest to the content of the Intraoperative Record and any orders documented therein. Any exceptions are noted below. [facility] [place] Card Cath Procedure Codes Cardiac Catheterization Procedure 1: Cardiovascular Cath Procedures: 26015 Coronaries and LHC (+/-LV) Therapeutic Services & Ancillary Proc Procedure 1: Cardiovascular Tx and Anc Procedures: 19086 Ultrasonic Guidance Pericardiocentesis Procedure 2: Cardiovascular Tx and Anc Procedures: 27777 Insertion Central Venous Catheter Moderate Sedation Procedure 1: Sedation/Anesthesia: 69668 Mod Sedation by the same physician;Init15 Min Child Age 5 & Up PG Care Time/CCT Total # of Minutes Spent Total Time Spent with Patient: Total time spent is greater than 50% in coordination of care (as documented) at patient's floor/unit and/or counseling patient:
[2020-05-16] MEDS: HYDROmorphone INJ 1 MG/ML SYRINGE IV PRN ×2 (18:24→23:12)
[2020-05-16] MEDS: INSULIN ASPART 100 UNITS/ML 3 ML PEN SC SCH ×2 (18:30→22:22)
--- NOTE | 2020-05-16 19:04 | Billing Data ---
Date of Service May 16, 2020 Coding Level of Care Code 25242 Subseq Hosp Care Lvl 3
--- NOTE | 2020-05-16 19:51 | XRay Report ---
XR chest 1V portable HISTORY: intubated, tube pulled COMPARISON: None. FINDINGS: No pneumothorax. No pleural effusions. Cardiac silhouette is moderately enlarged. There is perihilar interstitial and vascular thickening suggestive of mild pulmonary edema. A few bibasilar li near densities favor subsegmental atelectasis. IMPRESSION: 1. Cardiomegaly with mild interstitial pulmonary edema. 2. A few bibasilar linear densities favor subsegmental atelectasis. ACT 112: Negative or not required by law. Electronically signed by: Gordy Stone M.D. 05/16/2020 7:49 PM
[2020-05-17] MEDS ORDERED: NALOXONE HCL 0.4 MG/1 ML VIAL/CARP IV STA (00:02)
[2020-05-17] MEDS ORDERED: NALOXONE HCL 0.4 MG/1 ML VIAL/CARP ONE (00:02)
[2020-05-17] MEDS ORDERED: HALOPERIDOL LACTATE 5 MG/ML 1 ML VIAL IV STA (00:19)
[2020-05-17] MEDS: INSULIN ASPART 100 UNITS/ML 3 ML PEN SC SCH ×4 (02:03→21:01)
[2020-05-17 05:03] LABS: Basophils # (auto) 0.02 K/uL (0-0.2); Basophils % (auto) 0.2 %; Hematocrit (blood only) 37.5 % (37-47); Hemoglobin 12.3 g/dL (12.0-16.0); Immature Granulocytes # (auto) 0.04 K/uL (0.00-0.02); Immature Granulocytes % (auto) 0.3 %; Lymphocytes # (auto) 0.91 K/uL (1.2-3.4); Lymphocytes % (auto) 6.9 %; Mean Corpuscular Hemoglobin 31.9 pg (25-34); Mean Corpuscular Hgb Conc 32.8 g/dL (32-36); Mean Corpuscular Volume 97.4 fL (80-100); Mean Platelet Volume 10.8 fL (7.4-10.4); Monocytes # (auto) 1.08 K/uL (0.11-0.59); Monocytes % (auto) 8.2 %; Neutrophils # (auto) 11.15 K/uL (1.4-6.5); Neutrophils % (auto) 84.4 %; Platelet Count 237 K/uL (130-400); RDW Coefficient of Variation 12.8 % (11.5-14.5); RDW Standard Deviation 45.6 fL (36.4-46.3); Red Blood Count 3.85 M/uL (4.2-5.4)
[2020-05-17 05:33] LABS: BUN Creatinine Ratio 18.6 (10-20); Calcium 8.3 mg/dl (8.5-10.1); Creatinine Clr Calc Pharmacy 74.6 ml/min; Est GFR (African American) 82.2; Est GFR (Non-African American) 70.9; Potassium 4.1 mmol/L (3.5-5.1)
[2020-05-17 05:44] LABS: Phosphorus 4.1 mg/dl (2.5-4.9); Thyroid Stimulating Hormone 1.32 uIu/ml (0.300-4.500)
--- NOTE | 2020-05-17 05:47 | Electrocardiogram Report ---
Test Reason : Blood Pressure : / mmHG Vent. Rate : 091 BPM Atrial Rate : 227 BPM P-R Int : 000 ms QRS Dur : 088 ms QT Int : 332 ms P-R-T Axes : 000 051 -86 degrees QTc Int : 408 ms Atrial fibrillation Abnormal ECG No previous ECGs available Confirmed by Ajit Maier ([id number]) on 05/17/2020 5:46:24 AM Referred By: Sheldon Dowling Confirmed By:Ajit Maier
--- NOTE | 2020-05-17 05:48 | Electrocardiogram Report ---
Test Reason : Blood Pressure : / mmHG Vent. Rate : 110 BPM Atrial Rate : 113 BPM P-R Int : 000 ms QRS Dur : 084 ms QT Int : 332 ms P-R-T Axes : 000 050 -83 degrees QTc Int : 449 ms Atrial fibrillation with rapid ventricular response Abnormal ECG When compared with ECG of 16-MAY-2020 13:00, No significant change was found Confirmed by Ajit Maier ([id number]) on 05/17/2020 5:48:07 AM Referred By: Sheldon Dowling Confirmed By:Ajit Maier
[2020-05-17 06:05] LABS: Estimated Average Glucose 123 mg/dl; Hemoglobin A1C 5.9 % (4.5-5.6)
--- NOTE | 2020-05-17 07:35 | Critical Care Progress Note ---
Date of Service May 17, 2020 Assessment & Plan (1) Cardiac tamponade: Reason Critically Ill: 69 yo F PMHx AFib on chronic AC, DM2, CAD, HTN, hypothyroidism who presented to hospital today for cardiac catheterization for positive stress test during pre-operative clearance for hip arthroplasty. Today had PCI to proximal LAD performed, and in recovery became hypotensive to 70s systolic. Bedside Echo showed enlarged circumferential pericardial effusion and patient was taken for emergent pericardiocentesis. Patient was emergently intubated in procedure. Admitted to ICU due to intubation and post- pericardiocentesis for cardiac tamponade. Neuro Sedation: none Analgesia: Morphine 2mg q4h prn pain. - No history of neurologic disorder. Was not hypoxic prior to intubation. Received Versed, propofol, Fentanyl for intubation and procedure but no sedation currently. - Was intubated on minimal settings; now extubated and saturating well. - Required Haldol 2.5mg x1 overnight for agitation after extubation, however today is alert and oriented. Cardiac Cardiac tamponade: - 05/16 post-catheterization patient became suddenly hypotensive and was found on Echo to have enlarging circumferential pericardial effusion. - Taken to OR by Dr. Baker for emergent pericardiocentesis. - Was on norepinephrine for pressure support briefly prior to pericardiocentesis. - This AM has mild recollection of pericardial effusion, however is comfortable and without SOB or chest pain this AM. - Monitor closely for changes, will not drain at this time. - Anticoagulation held in setting of pericardial effusion. CAD: - Underwent dobutamine stress Echo on 05/07 which was abnormal. - 05/16 had elective catheterization which showed proximal LAD stenosis. - PCI x1 performed. - Hgb A1c 5.9% this admission. - Lipid panel with abnormally low LDL, total cholesterol. Would consider repeating. - Hold home dose metoprolol, losartan in the setting of hypotension. Continue metoprolol tartrate 12.5mg PO BID. - Continue DAPT. Atrial fibrillation: - At home is on Eliquis for anticoagulation and metoprolol for rate control. - Hold Eliquis in setting of acute bleeding. - Continue metoprolol tartrate 12.5 BID. Respiratory - Was intubated on minimal settings 2/2 pain and hypotension prior to procedure; now extubated and saturating well. - Patient denies history of COPD, asthma, ANU. GI - Ulcer ppx with Protonix PO. RENAL/LYTES - - No history of kidney disease. - Creatinine stable post-catheterization. - Repeat electrolytes as needed. - - No present concerns. - Wilcox for now for strict Is/Os. D/c later this AM. ENDO - - No history of thyroid disease. - TSH 1.320 this admission. DM2: - BSG 162 on admission. - Hold Rybelsus. ICU hyperglycemia protocol. - Hgb A1c 5.9%. HEME - Hgb 05/16 13.0 immediately post-procedure. - With large bloody pericardial effusion yesterday - Hgb this AM 12.3. ID - No present infectious concerns. No fevers. - WBC count 10.83 -> 13.20 this AM. - Monitor fever curve. INTEGUMENTARY - Cardiac catheterization site is clean and dry and without hematoma. - Pericardial drain removed this AM. LINES/IV ACCESS - PIVs intact. - Wilcox. DVT PROPHYLAXIS - SCDs. - Holding anticoagulation in the setting of pericardial effusion. CODE STATUS - FULL CODE. Thank you for allowing us to be part of this patient's care. Will monitor this AM for acute changes. Will downgrade to Telemetry level of care later today. Please refer to Dr. Moreno's documentation for any further recommendations. Admission and Anticipated Discharge Date Admission Date: May 16, 2020 Supervising Physician Co-Signing Physician Notes Dr. Baird was the resident-physician during care of patient. I separately evaluated patient for loya portions of the history and the exam. I was present during the critical portion of medical decision making, and I discussed the case with the resident. I generally agree with the findings and plan except for any additions/exceptions noted. Patient seen and examined at bedside. No acute distress. Overnight patient was again little bit agitated for which she got haloperidol 2.5. She was complaining of pain for which she got Dilaudid and she got hypotensive for which she got fluid. Today at the time of examination patient is awake alert oriented x3. She is back to her baseline. Answering all the questions appropriately. Denies any significant chest pain. No shortness of breath. No dizziness, no palpitation. No fever since coming to the ICU. Patient still has pericardial drain in. Plan from cardiology is to take it out later today. Continue with Plavix, aspirin, statin, digoxin, patient takes metoprolol succinate 200 mg at home. Given her blood pressure was on the lower side here metoprolol 12.5 mg twice daily has been started by cardio. Hold anticoagulation for A. fib given that she had pericardial effusion. Follow cardiology recommendations. Patient is hemodynamically stable. Okay to be transferred out of the ICU. Please note the above document was generated using voice recognition software. It may contain grammatical, syntax or spelling errors.Any formal questions or concerns about the content, text or information contained within the body of this dictation should be directly addressed to the provider for clarification. Subjective Overnight patient had episode of extreme lethargy, hypotension, tachycardia after getting Dilaudid for chest pain; received Narcan x1 with improvement in vitals and level of alertness. Received Haldol 2.5 x1 overnight for agitation and attempts to pull out lines and get out of bed. Review of Systems Review of Systems: All systems reviewed & are unremarkable except as noted in HPI & below Constitutional: no fever, no chills and no malaise Respiratory: no cough and no dyspnea Cardiovascular: no chest pain, no palpitations and no edema Gastrointestinal: no abdominal pain Physical Exam Physical Exam: VITAL SIGNS - Vital signs and nursing notes were reviewed. GENERAL - 69 yo F well developed, obese, in no acute distress. SKIN - Without rashes. Catheterization site without hematoma. Pericardial drain with minimal drainage. HEAD - NC/AT. EYES - PERRL. Sclera anicteric. Palpebral conjunctiva pink and moist with no injection noted. EARS - No deformities of external structures noted on gross examination bilaterally. NOSE - Midline and without cyanosis. No epistaxis or purulent drainage noted. MOUTH/OROPHARYNX - No perioral cyanosis. NECK - Supple to palpation. No nuchal rigidity. LUNGS - Decreased air entry on right side. Bilateral basilar crackles. CARDIAC - Heart rate irregularly irregular. No murmur, rubs, or gallops appreciated. ABDOMEN - Soft, nontender, nondistended, normal bowel sounds. Umbilical hernia, easily reducible. EXTREMITIES - No clubbing or peripheral cyanosis. No peripheral edema present. Radial and dorsalis pedis pulses palpated bilaterally. NEUROLOGIC - Moves all extremities equally. Alert and oriented x3. Results & Data Results & Data ([facility]) Vital Signs (Past 12 Hours) Vital Signs Temp Pulse Resp BP Pulse Ox 05/17/20 05:33 102 H 23 116/69 95 05/17/20 05:03 92 H 20 110/72 95 05/17/20 04:33 108 H 16 114/65 95 05/17/20 04:03 105 H 20 112/73 96 05/17/20 04:00 36.8 C 05/17/20 03:33 97 H 92/64 L 95 05/17/20 03:03 107 H 99/67 L 96 05/17/20 02:33 118 H 18 100/57 L 96 05/17/20 02:02 126 H 101/57 L 96 05/17/20 01:33 121 H 89/53 L 96 05/17/20 01:03 117 H 89/56 L 96 05/17/20 00:33 103 H 106/62 97 05/17/20 00:09 118 H 116/70 95 05/17/20 00:03 114 H 88/55 L 96 05/17/20 00:01 119 H 87/60 L 96 05/17/20 00:00 36.8 C 106 H 05/16/20 23:48 124 H 83/52 L 95 05/16/20 23:46 119 H 89/57 L 96 05/16/20 23:33 123 H 80/57 L 94 05/16/20 23:26 113 H 82/53 L 94 05/16/20 23:18 106 H 76/55 L 94 05/16/20 23:03 108 H 96/61 L 96 05/16/20 23:00 117 H 97 05/16/20 22:58 103 H 101/63 96 05/16/20 22:49 126 H 95/68 L 95 05/16/20 22:40 111 H 116/92 94 05/16/20 22:38 102 H 89/66 L 97 05/16/20 22:33 96 H 99/59 L 96 05/16/20 22:18 101 H 16 93/67 L 97 05/16/20 22:03 102 H 20 104/69 97 05/16/20 21:48 83 16 105/71 97 05/16/20 21:33 92 H 110/66 97 05/16/20 21:18 97 H 114/69 97 05/16/20 21:03 97 H 118/81 97 05/16/20 20:48 89 123/80 97 05/16/20 20:33 94 H 121/81 97 05/16/20 20:07 91 H 120/72 97 05/16/20 20:00 36.9 C 05/16/20 19:48 95 H 126/83 97 05/16/20 19:37 92 H 18 98/68 L 97 Resident Activity Tracking Resident Involvement: Resident Care Provided Care Provided: Adult [facility]
[2020-05-17] MEDS: ASPIRIN 81 MG ECTAB PO SCH (08:30)
[2020-05-17] MEDS: ATORVASTATIN 40 MG TAB PO SCH (08:30)
[2020-05-17] MEDS: CLOPIDOGREL BISULFATE 75 MG TAB PO SCH (08:30)
--- NOTE | 2020-05-17 09:04 | Cardiology Consultation ---
Date of Consultation May 17, 2020 Assessment & Plan (1) Cardiac tamponade: s/p pericardiocentesis on 05/16/20 yielding 195 ml of bloody fluid. No effusion at time of recent stress echo. Culprit likely tiny wire related microperforation of the distal LAD at time of PCI. Echo am of 05/17/20, reveals small amount of reaccumulation. BP stable, asymptomatic, not enough fluid to require repeat drainage. Pericardial drain not yielding additional fluid, will likely remove today. Repeat Echo 05/18. If remains stable, and pericardial drain removed , can consider tx to PCU later today (2) CAD (coronary artery disease): Troponin of 1.9 ng/ ml this am no surprising. EKG this am stable. Coronary stent patent on repeat angio yesterday. Continue ASA and clopidogrel.Continue atorvastatin. Hold [employer] losartan due to relative low BP. Usually on high dose metoprolol succinate 200 daily as outpatient. Start low dose tartrate for now. (3) Chronic atrial fibrillation: Chronic AF. V rates 100-109. Cautiously start low dose metoprolol tartrate. [employer] Eliquis on hold given pericardial effusion. (4) Chronic anticoagulation: H[employer]EC[employer] Eliquis on hold. DVT prophylaxis: SCDs. Advance Diet. History of Present Illness Attending Physician: Jeovanny Prasad MD History of Present Illness Mrs Bain is a 69 year old female recently seen in outpatient preoperative cardiology consultation by Dr Dowling for risk stratification prior to elective right hip replacement. A preoperative dobutamine stress echocardiogram was abnormal. Outpatient cardiac catheterization yesterday revealed 70-80 % proximal LAD stenosis for which patient underwent PCI and JACK. A 60% ostial diagonal 1 stenosis was also noted , 20% proximal and mid RCA disease for which medical management was recommended. Patient experienced chest pressure, shortness of breath, and hypotension in the post catheterization recovery suite prompting stat echocardiogram with findings of rapidly progressive pericardial effusion. Emergent pericardiocentesis was performed thereafter yesterday afternoon yielding 195 ml of blood pericardial fluid. Patient intubated for airway control for procedure. Extubated post procedure in ICU. Was agitated last evening , however , this has resolved. This am , she feels well. Her mental status is back to baseline. Denies chest discomfort. Allergies Allergy/AdvReac Type Severity Reaction Status Date / Time dofetilide [From Tikosyn] AdvReac Tachycardia Verified 05/16/20 07:23 Home Medications Medication Instructions Recorded Confirmed Type Rybelsus 7 mg PO DAILY 05/16/20 05/16/20 History apixaban 5 mg PO BID 05/16/20 05/16/20 History aspirin [Ecotrin Low Strength] 81 mg PO DAILY 14 Days #14 tab 05/16/20 Rx clopidogrel 75 mg PO DAILY #30 tab 05/16/20 Rx cyanocobalamin (vitamin B-12) 1,000 mcg PO DAILY 05/16/20 05/16/20 History digoxin 250 mcg PO DAILY 05/16/20 05/16/20 History levothyroxine [Synthroid] 50 mcg PO DAILY 05/16/20 05/16/20 History losartan [Cozaar] 100 mg PO DAILY 05/16/20 05/16/20 History metformin 1,000 mg PO BID 05/16/20 05/16/20 History metoprolol succinate 200 mg PO DAILY 05/16/20 05/16/20 History rosuvastatin [Crestor] 5 mg PO DAILY 05/16/20 05/16/20 History Patient History Medical History Chronic atrial fibrillation Dyslipidemia HTN (hypertension) Hypothyroidism Obesity Type 2 diabetes mellitus Surgical History History of appendectomy History of cataract surgery Family History Mother Diabetes Uterine cancer Sister Diabetes Kidney disease Father Heart disease Hypertension Kidney disease Social History Smoking Status: Former smoker Hx Alcohol Use: Yes Hx Substance Use: No Beliefs That Will Affect Care: None Current Living Situation: Spouse Feels Safe at Home: Yes Safety Concerns: Feels Safe At This Time Assistive Devices: Cane and Oxygen - Continuous Review of Systems Review of Systems: All systems reviewed & are unremarkable except as noted in HPI & below Physical Exam Physical Exam: Temp Pulse Resp BP Pulse Ox 36.8 C 102 H 23 116/69 95 05/17/20 04:00 05/17/20 05:33 05/17/20 05:33 05/17/20 05:33 05/17/20 05:33 Constitutional: WD/WN, vitals as above Respiratory: normal respiratory effort, lungs clear to auscultation Cardiovascular: Rate/Rhythm: regular rhythm and + tachycardic Heart Sounds: no murmur Gastrointestinal (Abdomen): normal bowel sounds, soft, nontender, no hepatosplenomegaly Neurologic: PERRL, EOMI, accommodation nl, no face palsy, no dysarthria Results & Data ([facility]) Vital Signs (Past 12 Hours) Vital Signs Temp Pulse Resp BP Pulse Ox 05/17/20 05:33 102 H 23 116/69 95 05/17/20 05:03 92 H 20 110/72 95 05/17/20 04:33 108 H 16 114/65 95 05/17/20 04:03 105 H 20 112/73 96 05/17/20 04:00 36.8 C 05/17/20 03:33 97 H 92/64 L 95 05/17/20 03:03 107 H 99/67 L 96 05/17/20 02:33 118 H 18 100/57 L 96 05/17/20 02:02 126 H 101/57 L 96 05/17/20 01:33 121 H 89/53 L 96 05/17/20 01:03 117 H 89/56 L 96 05/17/20 00:33 103 H 106/62 97 05/17/20 00:09 118 H 116/70 95 05/17/20 00:03 114 H 88/55 L 96 05/17/20 00:01 119 H 87/60 L 96 05/17/20 00:00 36.8 C 106 H 05/16/20 23:48 124 H 83/52 L 95 05/16/20 23:46 119 H 89/57 L 96 05/16/20 23:33 123 H 80/57 L 94 05/16/20 23:26 113 H 82/53 L 94 05/16/20 23:18 106 H 76/55 L 94 05/16/20 23:03 108 H 96/61 L 96 05/16/20 23:00 117 H 97 05/16/20 22:58 103 H 101/63 96 05/16/20 22:49 126 H 95/68 L 95 05/16/20 22:40 111 H 116/92 94 05/16/20 22:38 102 H 89/66 L 97 05/16/20 22:33 96 H 99/59 L 96 05/16/20 22:18 101 H 16 93/67 L 97 05/16/20 22:03 102 H 20 104/69 97 05/16/20 21:48 83 16 105/71 97 05/16/20 21:33 92 H 110/66 97 05/16/20 21:18 97 H 114/69 97 05/16/20 21:03 97 H 118/81 97 Laboratory Results Cardiac Enzymes 05/17/20 Range/Units 04:28 Troponin I 1.900 H* (0-0.045) ng/ml Lipids 05/17/20 Range/Units 04:28 Triglycerides 103 (0-150) mg/dl Cholesterol 75 (0-200) mg/dl HDL Cholesterol 46 mg/dl Cholesterol/HDL Ratio 2 CBC 05/16/20 05/17/20 Range/Units 16:30 04:28 WBC 10.83 H 13.20 H (4.8-10.8) K/uL RBC 4.06 L 3.85 L (4.2-5.4) M/uL Hgb 13.0 12.3 (12.0-16.0) g/dL Hct 39.2 37.5 (37-47) % Plt Count 253 237 (130-400) K/uL Neut # (Auto) 8.93 H 11.15 H (1.4-6.5) K/uL Lymph # (Auto) 1.24 0.91 L (1.2-3.4) K/uL [place] # (Auto) 0.60 H 1.08 H (0.11-0.59) K/uL Eos # (Auto) 0.03 0.00 (0-0.5) K/uL Baso # (Auto) 0.02 0.02 (0-0.2) K/uL Comprehensive Metabolic Panel 05/16/20 05/17/20 Range/Units 16:30 04:28 Sodium 141 139 (136-145) mmol/L Potassium 4.0 4.1 (3.5-5.1) mmol/L Chloride 109 H 109 H (98-107) mmol/L Carbon Dioxide 25 25 (21-32) mmol/L BUN 14 15 (7-18) mg/dl Creatinine 0.77 0.83 (0.6-1.2) mg/dl Glucose 162 H 146 H (70-99) mg/dl Calcium 8.6 8.3 L (8.5-10.1) mg/dl Intake and Output 05/16/20 05/17/20 05/17/20 22:59 06:59 14:59 Intake Total 100 / 850 750 / 850 Output Total 700 / 1200 500 / 1200 Balance -600 / -350 250 / -350 Intake: IV 100 / 850 750 / 850 MAGNESIUM SULFATE / D5W 1 gm In 100 / 100 100 ml @ 50 mls/hr IV ONE ONE Rx#:[id number] Nss 1000ML 750 ml @ 100 mls/hr 750 / 750 IV .[id number] [facility] Rx#:[id number] Output: Urine Amount (Catheter) 700 / 1200 500 / 1200 Wilcox/Indwelling 700 / 1200 500 / 1200 Other: Weight 101.2 kg Weight Measurement Method Built in [facility]
[2020-05-17] MEDS ORDERED: DIGOXIN 0.25 MG TAB PO SCH (09:30)
--- NOTE | 2020-05-17 09:35 | Communication Note ---
Date of Service: May 17, 2020 Updated patient's , Zeus, by phone.
[2020-05-17] MEDS ORDERED: LEVOTHYROXINE SODIUM 50 MCG TABLET PO SCH (09:45)
[2020-05-17] MEDS: PANTOprazole 40 MG TAB PO SCH (10:16)
[2020-05-17] MEDS: LEVOTHYROXINE SODIUM 50 MCG TABLET PO SCH (10:16)
[2020-05-17] MEDS: METOPROLOL TARTRATE 25 MG TAB PO SCH ×2 (10:16→21:00)
--- NOTE | 2020-05-17 10:17 | Billing Data ---
Date of Service May 17, 2020 Coding Level of Care Code 36179 Subseq Hosp Care Lvl 3
--- NOTE | 2020-05-17 10:45 | Electrocardiogram Report ---
Test Reason : Blood Pressure : / mmHG Vent. Rate : 097 BPM Atrial Rate : 000 BPM P-R Int : 000 ms QRS Dur : 088 ms QT Int : 330 ms P-R-T Axes : 000 052 -43 degrees QTc Int : 419 ms Atrial fibrillation Nonspecific ST and T wave abnormality Abnormal ECG When compared with ECG of 16-MAY-2020 13:13, Nonspecific T wave abnormality has replaced inverted T waves in Inferior leads Confirmed by Oli Cheney ([id number]) on 05/17/2020 10:44:47 AM Referred By: Sheldon Dowling Confirmed By:Oli Cheney
[2020-05-17] MEDS ORDERED: PANTOprazole 40 MG in SYRINGE 0 ML IV SCH (11:00)
[2020-05-17] MEDS ORDERED: INSULIN ASPART 100 UNITS/ML 3 ML PEN SC SCH (12:00)
[2020-05-17] MEDS: DIGOXIN 0.125 MG TAB PO SCH (12:35)
[2020-05-17] MEDS ORDERED: Nursing to Pharmacy Communication SCH (15:30)
--- NOTE | 2020-05-17 17:42 | Hospitalist Progress Note ---
Date of Service May 17, 2020 Assessment & Plan (1) Cardiac tamponade: Per admitting service notes Pt underwent PCI with single JACK to proximal LAD today - subsequently in recovery, she developed acute onset of SOB and hypotension. On stat ECHO noted to have pericardial effusion with tamponade - s/p pericardiocentesis this afternoon. Now in ICU post-procedure. Intubated in concrete plant laborer prior to pericardiocentesis but post-procedure was successfully extubated. Levophed drip successfully discontinued. 05/17/2020 Status post pericardiocentesis, draining hemorrhagic fluid 195 cc Echocardiogram: No evidence of tamponade, compared to prior study the pericardial fluid has reaccumulated to a mild degree Patient currently stable Drains removed Blood pressure stable (2) Pericardial effusion: See plan for #1 (3) CAD (coronary artery disease): s/p JACK to LAD Continue metoprolol, aspirin Plavix, atorvastatin (4) Chronic atrial fibrillation: Anticoagulation currently on hold Metoprolol, digoxin continued (5) Dyslipidemia: Is a change Lipitor 40 mg daily (6) HTN (hypertension): Continue metoprolol Losartan on hold (7) Hypothyroidism: TSH 1.3 Levothyroxine continued (8) Type 2 diabetes mellitus: - ICU hyperglycemia protocol - consult pharm for glycemic management Transfer to telemetry today Admission and Anticipated Discharge Date Admission Date: May 16, 2020 Subjective Follow-up for cardiac tamponade, pericardial effusion, status post PCI with stent placement Seen resting in bedside chair, sitting up, awake, alert oriented x3 Not in distress, in good spirits States she feels much better compared to yesterday Denies any chest pain, shortness of breath, palpitations, dizziness, headache, abdominal pain, nausea vomiting No fevers or chills No other symptoms Review of Systems Review of Systems: All systems reviewed & are unremarkable except as noted in Subjective Physical Exam Physical Exam: General- oriented x 3, not in distress, speaks in sentences with no effort or accessory muscle use Head- atraumatic Eyes- PERRL, EOMI, anicteric ENT- oropharynx clear Neck- supple, no JVD, no adenopathy, no thyromegaly; carotids +2/2, no bruits appreciated Lungs- clear to auscultation bilaterally, no rales/wheezes Heart- normal rate, regular rhythm; no murmur, no gallop, no rub appreciated Abdomen- normal bowel sounds, nondistended, soft, nontender, no masses or hepatosplenomegaly Extremities- no pretibial edema, no calf tenderness; peripheral pulses intact Neuro- alert, oriented x 3; CN 2-12 grossly intact; motor 5/5 bilaterally;sensation 100% on all extremities; no other gross focal neurologic deficits Skin- warm & dry Results & Data Results & Data ([facility]) Vital Signs (Past 12 Hours) Vital Signs Pulse BP Pulse Ox 05/17/20 16:21 119 H 138/75 96 05/17/20 16:00 108 H 92 05/17/20 15:50 108 H 125/80 05/17/20 15:20 106 H 116/70 96 05/17/20 15:00 109 H 87 L 05/17/20 14:51 104 H 127/72 95 05/17/20 14:20 100 H 132/79 97 05/17/20 14:00 115 H 95 05/17/20 13:52 96 H 124/73 97 05/17/20 13:21 112 H 96 05/17/20 13:00 108 H 96 05/17/20 12:35 84 05/17/20 12:21 112 H 94 05/17/20 12:20 107 H 129/79 05/17/20 12:00 107 H 96 05/17/20 11:51 88 123/81 91 05/17/20 11:21 99 H 112/96 05/17/20 11:09 128 H 153/89 H 96 05/17/20 11:01 104 H 96 05/17/20 10:59 104 H 123/87 97 05/17/20 10:49 109 H 101/75 96 05/17/20 10:40 94 H 112/77 96 05/17/20 10:31 108 H 97 05/17/20 10:30 106 H 114/75 96 05/17/20 10:18 107 H 127/92 95 05/17/20 10:03 105 H 109/76 92 05/17/20 10:00 101 H 94 05/17/20 09:49 136 H 118/68 96 05/17/20 09:34 125 H 129/82 95 05/17/20 09:18 110 H 125/92 97 05/17/20 09:03 110 H 104/83 97 05/17/20 09:00 105 H 97 05/17/20 08:49 100 H 96 05/17/20 08:34 103 H 117/76 96 05/17/20 08:30 111 H 123/81 95 05/17/20 08:19 102 H 119/70 95 05/17/20 08:03 109 H 115/86 95 05/17/20 08:00 100 H 96 05/17/20 07:49 93 H 104/67 94 05/17/20 07:33 120 H 118/81 96 05/17/20 07:18 102 H 101/80 97 05/17/20 07:03 102 H 126/69 96 05/17/20 07:00 112 H 97 05/17/20 06:48 109 H 119/88 96 05/17/20 06:33 100 H 97/77 L 97 05/17/20 06:18 115 H 108/71 96 05/17/20 06:03 118 H 115/74 95 05/17/20 06:00 113 H 95 05/17/20 05:49 114 H 95 Laboratory Results Laboratory Results - last 24 hr 05/16/20 05/16/20 05/17/20 16:27 22:21 02:03 WBC RBC Hgb Hct MCV MCH MCHC RDW Std Deviation RDW Coeff of Ana Plt Count MPV Immature Gran % (Auto) Neut % (Auto) Lymph % (Auto) [place] % (Auto) Eos % (Auto) Baso % (Auto) Neut # (Auto) Lymph # (Auto) [place] # (Auto) Eos # (Auto) Baso # (Auto) Immature Gran # (Auto) Sodium Potassium Chloride Carbon Dioxide Anion Gap BUN Creatinine Est Cr Clr Drug Dosing Est GFR ( Amer) Est GFR (Non-Af Amer) BUN/Creatinine Ratio Glucose POC Glucose 119 H 140 H Estimat Average Glucose Hemoglobin A1c Calcium Phosphorus Magnesium Troponin I Triglycerides Cholesterol LDL Cholesterol, Calc VLDL Cholesterol, Calc HDL Cholesterol Cholesterol/HDL Ratio TSH Nasal Screen MRSA (PCR) Negative 05/17/20 05/17/20 05/17/20 04:28 04:28 04:28 WBC 13.20 H RBC 3.85 L Hgb 12.3 Hct 37.5 MCV 97.4 MCH 31.9 MCHC 32.8 RDW Std Deviation 45.6 RDW Coeff of Ana 12.8 Plt Count 237 MPV 10.8 H Immature Gran % (Auto) 0.3 Neut % (Auto) 84.4 Lymph % (Auto) 6.9 [place] % (Auto) 8.2 Eos % (Auto) 0.0 Baso % (Auto) 0.2 Neut # (Auto) 11.15 H Lymph # (Auto) 0.91 L [place] # (Auto) 1.08 H Eos # (Auto) 0.00 Baso # (Auto) 0.02 Immature Gran # (Auto) 0.04 H Sodium 139 Potassium 4.1 Chloride 109 H Carbon Dioxide 25 Anion Gap 5.0 BUN 15 Creatinine 0.83 Est Cr Clr Drug Dosing 74.6 Est GFR ( Amer) 82.2 Est GFR (Non-Af Amer) 70.9 BUN/Creatinine Ratio 18.6 Glucose 146 H POC Glucose Estimat Average Glucose 123 Hemoglobin A1c 5.9 H Calcium 8.3 L Phosphorus 4.1 Magnesium 2.0 Troponin I Triglycerides 103 Cholesterol 75 LDL Cholesterol, Calc 8 VLDL Cholesterol, Calc 21 HDL Cholesterol 46 Cholesterol/HDL Ratio 2 TSH 1.320 Nasal Screen MRSA (PCR) 05/17/20 05/17/20 05/17/20 04:28 06:29 11:08 WBC RBC Hgb Hct MCV MCH MCHC RDW Std Deviation RDW Coeff of Ana Plt Count MPV Immature Gran % (Auto) Neut % (Auto) Lymph % (Auto) [place] % (Auto) Eos % (Auto) Baso % (Auto) Neut # (Auto) Lymph # (Auto) [place] # (Auto) Eos # (Auto) Baso # (Auto) Immature Gran # (Auto) Sodium Potassium Chloride Carbon Dioxide Anion Gap BUN Creatinine Est Cr Clr Drug Dosing Est GFR ( Amer) Est GFR (Non-Af Amer) BUN/Creatinine Ratio Glucose POC Glucose 135 H 149 H Estimat Average Glucose Hemoglobin A1c Calcium Phosphorus Magnesium Troponin I 1.900 H* Triglycerides Cholesterol LDL Cholesterol, Calc VLDL Cholesterol, Calc HDL Cholesterol Cholesterol/HDL Ratio TSH Nasal Screen MRSA (PCR) 05/17/20 16:27 WBC RBC Hgb Hct MCV MCH MCHC RDW Std Deviation RDW Coeff of Ana Plt Count MPV Immature Gran % (Auto) Neut % (Auto) Lymph % (Auto) [place] % (Auto) Eos % (Auto) Baso % (Auto) Neut # (Auto) Lymph # (Auto) [place] # (Auto) Eos # (Auto) Baso # (Auto) Immature Gran # (Auto) Sodium Potassium Chloride Carbon Dioxide Anion Gap BUN Creatinine Est Cr Clr Drug Dosing Est GFR ( Amer) Est GFR (Non-Af Amer) BUN/Creatinine Ratio Glucose POC Glucose 115 H Estimat Average Glucose Hemoglobin A1c Calcium Phosphorus Magnesium Troponin I Triglycerides Cholesterol LDL Cholesterol, Calc VLDL Cholesterol, Calc HDL Cholesterol Cholesterol/HDL Ratio TSH Nasal Screen MRSA (PCR) (1) Type 2 diabetes mellitus Diabetes mellitus complication status: without complication Diabetes mellitus continuous churn buttermaker insulin use: without continuous churn buttermaker use Qualified Code(s): E11.9 - Type 2 diabetes mellitus without complications (2) Hypothyroidism Hypothyroidism type: unspecified Qualified Code(s): E03.9 - Hypothyroidism, unspecified (3) HTN (hypertension) Hypertension type: unspecified Qualified Code(s): I10 - Essential (primary) hypertension
--- NOTE | 2020-05-17 21:05 | XRay Report ---
SINGLE VIEW CHEST CLINICAL HISTORY: Respiratory insufficiency. FINDINGS: An AP, portable, upright chest radiograph is compared to study dated 05/16/2020. The heart is enlarged noting atherosclerotic calcification of the thoracic aorta. The pulmonary vasculature is noncongested. Small pleural effusions are noted with bibasilar atelectasis. No airspace consolidation is seen typical for pneumonia. No pneumothorax is seen. The skeletal structures are osteopenic. The bony thorax is grossly intact. Arthritic change is noted in the shoulders. IMPRESSION: 1. Cardiomegaly. Pulmonary vascular congestion has resolved from yesterday. 2. Small pleural effusions with bibasilar atelectasis. ACT 112: Negative or not required by law. Electronically signed by: Bishop Paez M.D. 05/17/2020 9:04 PM
[2020-05-18 05:07] LABS: Basophils # (auto) 0.01 K/uL (0-0.2); Basophils % (auto) 0.1 %; Eosinophils # (auto) 0.01 K/uL (0-0.5); Eosinophils % (auto) 0.1 %; Hemoglobin 11.8 g/dL (12.0-16.0); Immature Granulocytes # (auto) 0.03 K/uL (0.00-0.02); Immature Granulocytes % (auto) 0.2 %; Lymphocytes # (auto) 1.21 K/uL (1.2-3.4); Mean Corpuscular Hemoglobin 31.5 pg (25-34); Mean Corpuscular Hgb Conc 32.8 g/dL (32-36); Mean Platelet Volume 10.7 fL (7.4-10.4); Monocytes # (auto) 1.13 K/uL (0.11-0.59); Monocytes % (auto) 9.3 %; Neutrophils # (auto) 9.77 K/uL (1.4-6.5); Neutrophils % (auto) 80.3 %; Platelet Count 212 K/uL (130-400); RDW Coefficient of Variation 12.8 % (11.5-14.5); RDW Standard Deviation 44.4 fL (36.4-46.3); Red Blood Count 3.75 M/uL (4.2-5.4); White Blood Count 12.16 K/uL (4.8-10.8)
[2020-05-18 05:29] LABS: BUN Creatinine Ratio 23.5 (10-20); Calcium 8.8 mg/dl (8.5-10.1); Creatinine Clr Calc Pharmacy 83.7 ml/min; Est GFR (African American) 94.5; Est GFR (Non-African American) 81.5; Magnesium 2.1 mg/dl (1.8-2.4); Potassium 4.1 mmol/L (3.5-5.1)
[2020-05-18 05:37] LABS: Phosphorus 2.3 mg/dl (2.5-4.9); Troponin I 1.11 ng/ml (0-0.045)
[2020-05-18] MEDS: LEVOTHYROXINE SODIUM 50 MCG TABLET PO SCH (06:12)
[2020-05-18] MEDS: ASPIRIN 81 MG ECTAB PO SCH (07:34)
[2020-05-18] MEDS: CLOPIDOGREL BISULFATE 75 MG TAB PO SCH (07:34)
[2020-05-18] MEDS: PANTOprazole 40 MG TAB PO SCH (07:34)
[2020-05-18] MEDS: METOPROLOL TARTRATE 25 MG TAB PO SCH (07:34)
[2020-05-18] MEDS: ATORVASTATIN 40 MG TAB PO SCH (07:34)
[2020-05-18] MEDS: INSULIN ASPART 100 UNITS/ML 3 ML PEN SC SCH ×4 (07:42→21:44)
--- NOTE | 2020-05-18 12:10 | Cardiology Progress Note ---
Date of Service May 18, 2020 Assessment & Plan (1) CAD (coronary artery disease): (1) Cardiac tamponade: s/p pericardiocentesis on 05/16/20 yielding 195 ml of bloody fluid. No effusion at time of recent stress echo. Culprit likely tiny wire related microperforation of the distal LAD at time of PCI. Repeat echo 05/18/2020 reveals interval improvement, small residual circumferential pericardial effusion noted without tamponade. (2) CAD (coronary artery disease): Troponin of 1.9 ng/ ml , trended down to 1.11ng/ml. Patency of the LAD stent was confirmed on repeat angiography at the time pericardiocentesis. Troponin likely due to myocardial demand while hypotensive. Continue ASA and clopidogrel.Continue atorvastatin. Hold DIE EQUIPMENT OPERATOR losartan due to relative low BP. Usually on high dose metoprolol succinate 200 daily as outpatient. Increase metoprolol tartrate to 25 mg twice daily. Monitor blood pressure. (3) Chronic atrial fibrillation: Chronic AF. V rates 100-109, and remains asymptomatic from an atrial fibrillation standpoint. As noted, typically on high dose Toprol succinate 200 mg daily and digoxin. Digoxin has been reinitiated. Cautiously titrate metoprolol tartrate 25 mg twice daily. Continue to hold prior to hospital Eliquis. (4) Chronic anticoagulation: DIE EQUIPMENT OPERATOR Eliquis on hold. DVT prophylaxis: SCDs. Patient stable for transfer to PCU. Admission and Anticipated Discharge Date Admission Date: May 16, 2020 Subjective Patient seen in follow-up. She looks and feels great. She is sitting in the bedside chair. Atrial fibrillation with mildly elevated ventricular response noted, ventricular rates just around 100 bpm. Denies any symptoms suggestive angina or pericarditis. Review of Systems Review of Systems: All systems reviewed & are unremarkable except as noted in HPI & below Physical Exam Physical Exam: Temp Pulse Resp BP Pulse Ox 36.8 C 104 H 26 H 113/91 96 05/18/20 08:00 05/18/20 09:00 05/18/20 09:00 05/18/20 08:00 05/18/20 08:00 Constitutional: WD/WN, vitals as above Respiratory: normal respiratory effort, lungs clear to auscultation Cardiovascular: Rate/Rhythm: + irregularly irregular Heart Sounds: no murmur Extremities: no edema Gastrointestinal (Abdomen): normal bowel sounds, soft, nontender, no hepatosplenomegaly Neurologic: PERRL, EOMI, accommodation nl, no face palsy, no dysarthria Results & Data ([facility]) Vital Signs (Past 12 Hours) Vital Signs Temp Pulse Pulse Resp BP BP Pulse Ox 05/18/20 09:00 104 H 26 H 05/18/20 08:30 111 H 05/18/20 08:00 36.8 C 137 H 140 H 24 113/91 96 05/18/20 07:22 128 H 29 H 113/91 05/18/20 07:21 130 H 24 153/123 H 05/18/20 07:00 122 H 23 05/18/20 06:00 115 H 24 05/18/20 05:00 112 H 22 05/18/20 04:00 36.8 C 124 H 106 H 25 H 142/91 H 98 05/18/20 03:35 127 H 25 H 142/91 H 05/18/20 03:00 123 H 25 H 05/18/20 02:00 123 H 21 05/18/20 01:00 117 H 22 Laboratory Results Cardiac Enzymes 05/18/20 Range/Units 04:11 Troponin I 1.110 H* (0-0.045) ng/ml CBC 05/18/20 Range/Units 04:11 WBC 12.16 H (4.8-10.8) K/uL RBC 3.75 L (4.2-5.4) M/uL Hgb 11.8 L (12.0-16.0) g/dL Hct 36.0 L (37-47) % Plt Count 212 (130-400) K/uL Neut # (Auto) 9.77 H (1.4-6.5) K/uL Lymph # (Auto) 1.21 (1.2-3.4) K/uL [place] # (Auto) 1.13 H (0.11-0.59) K/uL Eos # (Auto) 0.01 (0-0.5) K/uL Baso # (Auto) 0.01 (0-0.2) K/uL Comprehensive Metabolic Panel 05/18/20 Range/Units 04:11 Sodium 136 (136-145) mmol/L Potassium 4.1 (3.5-5.1) mmol/L Chloride 106 (98-107) mmol/L Carbon Dioxide 27 (21-32) mmol/L BUN 17 (7-18) mg/dl Creatinine 0.74 (0.6-1.2) mg/dl Glucose 117 H (70-99) mg/dl Calcium 8.8 (8.5-10.1) mg/dl Intake and Output 05/17/20 05/18/20 05/18/20 22:59 06:59 14:59 Intake Total 240 / 1120 240 / 1120 Output Total 0 / 300 0 / 300 Balance 240 / 820 240 / 820 Intake: Oral 240 / 1120 240 / 1120 Output: # Bowel Movements 0 / 0 0 / 0 Other: # Unmeasured Voids 1 2 Weight 101.3 kg Weight Measurement Method [facility] Diagnostic Findings EKG performed this morning 05/18/2020 and reviewed independently revealed atrial fibrillation at 127 bpm, inferior lateral T wave inversions noted. Compared to the prior performed 05/17/2020, the T wave inversions are more prominent, the ventricular rate has increased by about 30 bpm. Repeat echocardiogram performed this morning 05/18/2020 and reviewed independently revealed a small residual circumferential pericardial effusion with thrombus adjacent to the right ventricular free wall. Compared to 05/17/2020 there has been a subtle interval improvement in the amount of pericardial fluid. No echo indications of tamponade.
[2020-05-18] MEDS ORDERED: METOPROLOL TARTRATE 25 MG TAB PO STA (12:13)
[2020-05-18] MEDS: DIGOXIN 0.125 MG TAB PO SCH (16:17)
--- NOTE | 2020-05-18 16:53 | Communication Note ---
Date of Service: May 18, 2020 I called , Zeus, by phone
--- NOTE | 2020-05-18 18:29 | Hospitalist Progress Note ---
Date of Service May 18, 2020 Assessment & Plan (1) Cardiac tamponade: Per admitting service notes Pt underwent PCI with single JACK to proximal LAD today - subsequently in recovery, she developed acute onset of SOB and hypotension. On stat ECHO noted to have pericardial effusion with tamponade - s/p pericardiocentesis this afternoon. Now in ICU post-procedure. 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 Levophed drip successfully discontinued. 05/18/2020 Status post pericardiocentesis, draining hemorrhagic fluid 195 cc Echocardiogram: No evidence of tamponade, compared to prior study the pericardial fluid has reaccumulated to a mild degree Pressure remained stable Chest pain-free (2) Pericardial effusion: See plan for #1 (3) CAD (coronary artery disease): s/p JACK to LAD Continue metoprolol, aspirin Plavix, atorvastatin (4) Chronic atrial fibrillation: Anticoagulation currently on hold Metoprolol increased to 50 mg twice daily, digoxin 0.125 mg daily (5) Dyslipidemia: Lipitor 40 mg daily (6) HTN (hypertension): Continue metoprolol Losartan on hold (7) Hypothyroidism: TSH 1.3 Levothyroxine continued (8) Type 2 diabetes mellitus: - consult pharm for glycemic management Disposition Pending anticipate discharge to home when medically stable and cleared by cardiology service Admission and Anticipated Discharge Date Admission Date: May 16, 2020 Subjective Follow-up for cardiac tamponade, hemorrhagic pleural effusion, status post PCI with stent placement Seen sitting up in bedside chair, comfortable, not in distress, in good spirits States she slept well overnight Chest pain-free, denies shortness of breath, palpitations, dizziness, nausea vomiting No other symptoms Review of Systems Review of Systems: All systems reviewed & are unremarkable except as noted in Subjective Physical Exam Physical Exam: General- oriented x 3, not in distress, speaks in sentences with no effort or accessory muscle use Eyes- anicteric Neck- no JVD Lungs- clear breath sounds bilaterally, no rales/wheezes Heart-mild tachycardia, irregularly irregular rhythm; no murmurs Abdomen- normal bowel sounds, nondistended, soft, nontender Extremities- no pretibial edema, no calf tenderness Neuro- alert, oriented x 3; no gross focal neurologic deficits Skin- warm & dry Results & Data Results & Data ([facility]) Vital Signs (Past 12 Hours) Vital Signs Temp Pulse Pulse Resp BP BP Pulse Ox 05/18/20 16:17 116 H 05/18/20 15:27 36.8 C 104 H 23 132/92 96 05/18/20 15:00 117 H 05/18/20 13:20 100 H 100 H 18 145/85 H 97 05/18/20 12:08 36.9 C 115 H 18 129/74 98 05/18/20 09:00 104 H 26 H 05/18/20 08:30 111 H 05/18/20 08:00 36.8 C 137 H 140 H 24 113/91 96 05/18/20 07:22 128 H 29 H 113/91 05/18/20 07:21 130 H 24 153/123 H 05/18/20 07:00 122 H 23 (1) HTN (hypertension) Hypertension type: unspecified Qualified Code(s): I10 - Essential (primary) hypertension (2) Hypothyroidism Hypothyroidism type: unspecified Qualified Code(s): E03.9 - Hypothyroidism, unspecified (3) Type 2 diabetes mellitus Diabetes mellitus fci insulin use: without long lines operator use Diabetes mellitus complication status: without complication Qualified Code(s): E11.9 - Type 2 diabetes mellitus without complications
[2020-05-18] MEDS ORDERED: METOPROLOL TARTRATE 25 MG TAB PO SCH (21:00)
[2020-05-19] MEDS ORDERED: METOPROLOL TARTRATE 1 MG/ML VIAL IV STA ×2 (04:02→06:23)
[2020-05-19] MEDS ORDERED: SODIUM CHLORIDE 0.9% 500 ML IV ONE (04:03)
[2020-05-19] MEDS ORDERED: METOPROLOL TARTRATE 25 MG TAB PO SCH (04:05)
[2020-05-19 05:02] LABS: Basophils # (auto) 0.01 K/uL (0-0.2); Basophils % (auto) 0.1 %; Eosinophils # (auto) 0.07 K/uL (0-0.5); Eosinophils % (auto) 0.7 %; Hematocrit (blood only) 34.8 % (37-47); Hemoglobin 11.4 g/dL (12.0-16.0); Immature Granulocytes # (auto) 0.02 K/uL (0.00-0.02); Immature Granulocytes % (auto) 0.2 %; Lymphocytes # (auto) 1.43 K/uL (1.2-3.4); Mean Corpuscular Hemoglobin 31.8 pg (25-34); Mean Corpuscular Hgb Conc 32.8 g/dL (32-36); Mean Corpuscular Volume 97.2 fL (80-100); Mean Platelet Volume 10.4 fL (7.4-10.4); Monocytes # (auto) 0.68 K/uL (0.11-0.59); Monocytes % (auto) 6.7 %; Neutrophils # (auto) 7.97 K/uL (1.4-6.5); Neutrophils % (auto) 78.3 %; Platelet Count 225 K/uL (130-400); RDW Coefficient of Variation 12.7 % (11.5-14.5); RDW Standard Deviation 45.1 fL (36.4-46.3); Red Blood Count 3.58 M/uL (4.2-5.4); White Blood Count 10.18 K/uL (4.8-10.8)
[2020-05-19 05:35] LABS: BUN Creatinine Ratio 19.8 (10-20); Calcium 8.9 mg/dl (8.5-10.1); Creatinine Clr Calc Pharmacy 89.7 ml/min; Est GFR (African American) 101.5; Est GFR (Non-African American) 87.6; Magnesium 2.2 mg/dl (1.8-2.4); Potassium 3.9 mmol/L (3.5-5.1)
[2020-05-19] MEDS: LEVOTHYROXINE SODIUM 50 MCG TABLET PO SCH (05:46)
[2020-05-19] MEDS ORDERED: POTASSIUM CHLORIDE CRTAB 20 MEQ TABCR PO STA (06:04)
[2020-05-19] MEDS ORDERED: CEFEPIME CONSULT ACTIVE PRN (06:16)
--- NOTE | 2020-05-19 06:17 | Communication Note ---
Date of Service: May 19, 2020 Persistent rapid A. fib overnight. Patient comfortable as per RN. No cough symptoms as per RN. AP Rapid A. fib Possible sepsis given elevated procalcitonin, source to be identified Facilitate a.m. Lopressor IV Lopressor 1 dose now Cultures, Cefepime Check UA Will relay to AM provider.
--- NOTE | 2020-05-19 06:31 | Electrocardiogram Report ---
Test Reason : Blood Pressure : / mmHG Vent. Rate : 127 BPM Atrial Rate : 104 BPM P-R Int : 000 ms QRS Dur : 092 ms QT Int : 268 ms P-R-T Axes : 000 070 260 degrees QTc Int : 389 ms Atrial fibrillation with rapid ventricular response Abnormal ECG When compared with ECG of 17-MAY-2020 06:55, ST now depressed in Anterior leads Inverted T waves have replaced nonspecific T wave abnormality in Inferior leads Inverted T waves have replaced nonspecific T wave abnormality in Anterolateral leads Confirmed by Ajit Maier ([id number]) on 05/19/2020 6:31:28 AM Referred By: Sheldon Dowling Confirmed By:Ajit Maier
[2020-05-19] MEDS: CEFEPIME 2,000 MG in SYRINGE 0 ML IV SCH ×3 (06:44→21:08)
[2020-05-19 07:01] LABS: Appearance Urine Clear (Clear); Bacteria Urine Automated 4+ (Negative); Bilirubin Urine Negative (Negative); Blood Urine Negative (Negative); Color Urine Yellow; Epithelial Cell Urine Auto >30 /lpf (0-5); Glucose Urine UA Negative (Negative); Ketones Urine Trace (Negative); Leukocyte Esterase Urine 1+ (Negative); Nitrite Urine Positive (Negative); Protein Urine Negative (Negative); RBC Urine Automated 0-4 /hpf (0-4); Specific Gravity Urine 1.015 (1.000-1.030); Urobilinogen Urine Negative (Negative)
[2020-05-19] MEDS: INSULIN ASPART 100 UNITS/ML 3 ML PEN SC SCH ×4 (08:34→22:32)
[2020-05-19] MEDS: CLOPIDOGREL BISULFATE 75 MG TAB PO SCH (08:35)
[2020-05-19] MEDS: PANTOprazole 40 MG TAB PO SCH (08:35)
[2020-05-19] MEDS: ASPIRIN 81 MG ECTAB PO SCH (08:35)
[2020-05-19] MEDS: ATORVASTATIN 40 MG TAB PO SCH (08:35)
--- NOTE | 2020-05-19 14:26 | Hospitalist Progress Note ---
Date of Service May 19, 2020 Assessment & Plan (1) Cardiac tamponade: Per admitting service notes Pt underwent PCI with single JACK to proximal LAD today - subsequently in recovery, she developed acute onset of SOB and hypotension. On stat ECHO noted to have pericardial effusion with tamponade - s/p pericardiocentesis this afternoon. Now in ICU post-procedure. 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 Levophed drip successfully discontinued. 05/19/2020 per [employer]: Culprit likely tiny wire related microperforation of the distal LAD at time of PCI. Status post pericardiocentesis, draining hemorrhagic fluid 195 cc Repeat echo 05/18/2020 reveals interval improvement, small residual circumferential pericardial effusion noted without tamponade. BP stable Chest pain-free usual Eliquis on hold Possible UTI - based on UA - Urine culture: pending - empiric Cefepime IV day 1 (2) Pericardial effusion: See plan for #1 (3) CAD (coronary artery disease): s/p JACK to LAD Continue metoprolol, aspirin Plavix, atorvastatin (4) Chronic atrial fibrillation: Eliquis currently on hold Metoprolol increased to 25 mg twice daily, digoxin 0.125 mg daily (5) Dyslipidemia: Lipitor 40 mg daily (6) HTN (hypertension): Continue metoprolol Losartan on hold (7) Hypothyroidism: TSH 1.3 Levothyroxine continued (8) Type 2 diabetes mellitus: - consult pharm for glycemic management Disposition Pending anticipate discharge to home when medically stable and cleared by cardiology service Admission and Anticipated Discharge Date Admission Date: May 16, 2020 Subjective ff up for cardiac tamponade, pericardial effusion, s/p PCI, LAD stent placement noted to be in RVR overnight, UA suggestive of UTI seen resting in bedside chair, comfortable, in good spirits states she feels fine overall no chest pain, dyspnea, palpitations, dizziness, nausea no abdominal pain, has polyuria but no dysuria, chills denies other symptoms Review of Systems Review of Systems: All systems reviewed & are unremarkable except as noted in Subjective Physical Exam Physical Exam: General- oriented x 3, not in distress, speaks in sentences with no effort or accessory muscle use Eyes- anicteric Neck- no JVD Lungs- clear BS BL no rales/wheezing Heart- normal rate, rirregularly iregular rhythm; no murmurs Abdomen- normal bowel sounds, nondistended, soft, nontender Extremities- no pretibial edema, no calf tenderness Neuro- alert, oriented x 3; no gross focal neurologic deficits Skin- warm & dry Results & Data Results & Data ([facility]) Vital Signs (Past 12 Hours) Vital Signs Temp Pulse Pulse Resp BP BP Pulse Ox 05/19/20 11:52 36.6 C 111 H 19 130/85 99 05/19/20 08:02 36.8 C 112 H 18 116/72 99 05/19/20 06:32 107 H 136/80 05/19/20 06:23 107 H 136/80 05/19/20 04:16 135 H 128/87 05/19/20 03:41 36.4 C L 102 H 19 128/87 100 (1) HTN (hypertension) Hypertension type: unspecified Qualified Code(s): I10 - Essential (primary) hypertension (2) Hypothyroidism Hypothyroidism type: unspecified Qualified Code(s): E03.9 - Hypothyroidism, unspecified (3) Type 2 diabetes mellitus Diabetes mellitus oil heaterman insulin use: without oil heaterman use Diabetes mellitus complication status: without complication Qualified Code(s): E11.9 - Type 2 diabetes mellitus without complications
[2020-05-19] MEDS ORDERED: METOPROLOL TARTRATE 50 MG TAB PO STA (15:02)
--- NOTE | 2020-05-19 15:15 | Cardiology Progress Note ---
Date of Service May 19, 2020 Assessment & Plan (1) CAD (coronary artery disease): (2) Cardiac tamponade: (3) Chronic atrial fibrillation: (4) HTN (hypertension): (5) Dyslipidemia: Status post drug-eluting stent to the LAD, followed by symptomatic hypotension, diagnosis of pericardial effusion, with tamponade physiology for which patient underwent emergent pericardiocentesis. She was briefly intubated for airway control during the procedure, extubated in the intensive care unit post procedure. Blood pressure has been trending back to its baseline. She has a history of chronic longstanding atrial fibrillation, and is typically on metoprolol succinate 200 mg daily. This has been held due to relative hypotension, and reinitiated at a low dose yesterday. We will titrate metoprolol with a 50 mg dose of metoprolol tartrate now, followed by metoprolol tartrate 100 mg twice daily. Utilizing short acting formulation at present given low blood pressure earlier this hospital stay. She is typically on digoxin 250 mcg 4 days/week, currently on 125 mcg daily. Losartan remains on hold. Due to elevated heart rates, there have been concern of sepsis, prompting the on-call hospitalist to obtain a urinalysis suggestive of possible infection, procalcitonin mildly elevated. Patient denies any dysuria or cough, no other infectious symptoms. Did have a preprocedure COVID-19 screen as an outpatient that was negative. At present, continue empiric cefepime, await urine culture. I have ordered a limited echocardiogram to be performed in the morning on 05/20/2020, based on blood pressure, heart rate, and echocardiogram findings, will determine timing of reinitiating Eliquis with plans for transitioning off of aspirin and onto Eliquis if pericardial effusion is stable, with tentative plans for outpatient treatment to include clopidogrel plus Eliquis. Patient is aware her elective hip surgery is to be delayed 6 to 12 months given drug-eluting stent to the LAD. DVT prophylaxis: Continue SCDs. Admission and Anticipated Discharge Date Admission Date: May 16, 2020 Subjective Patient seen in follow-up. She feels great. She looks much improved compared to earlier this hospital stay. Blood pressure has been stable, most part systolic readings in the 130s over the last 12 hours. Ventricular rates have trended up, currently telemetry reveals atrial fibrillation at 120 bpm. Review of Systems Review of Systems: All systems reviewed & are unremarkable except as noted in HPI & below Physical Exam Physical Exam: Temp Pulse Resp BP Pulse Ox 36.6 C 111 H 19 130/85 99 05/19/20 11:52 05/19/20 11:52 05/19/20 11:52 05/19/20 11:52 05/19/20 11:52 Constitutional: WD/WN, vitals as above Respiratory: normal respiratory effort, lungs clear to auscultation Cardiovascular: Rate/Rhythm: + tachycardic and + irregularly irregular Heart Sounds: no murmur Vessels: no JVD Extremities: no edema Gastrointestinal (Abdomen): normal bowel sounds, soft, nontender, no hepatosplenomegaly Neurologic: PERRL, EOMI, accommodation nl, no face palsy, no dysarthria Results & Data ([facility]) Vital Signs (Past 12 Hours) Vital Signs Temp Pulse Pulse Resp BP BP Pulse Ox 05/19/20 11:52 36.6 C 111 H 19 130/85 99 05/19/20 08:02 36.8 C 112 H 18 116/72 99 05/19/20 06:32 107 H 136/80 05/19/20 06:23 107 H 136/80 05/19/20 04:16 135 H 128/87 05/19/20 03:41 36.4 C L 102 H 19 128/87 100 Laboratory Results Coagulation 05/19/20 Range/Units 04:44 APTT 28.0 (21.0-31.0) Seconds CBC 05/19/20 Range/Units 04:44 WBC 10.18 (4.8-10.8) K/uL RBC 3.58 L (4.2-5.4) M/uL Hgb 11.4 L (12.0-16.0) g/dL Hct 34.8 L (37-47) % Plt Count 225 (130-400) K/uL Neut # (Auto) 7.97 H (1.4-6.5) K/uL Lymph # (Auto) 1.43 (1.2-3.4) K/uL [place] # (Auto) 0.68 H (0.11-0.59) K/uL Eos # (Auto) 0.07 (0-0.5) K/uL Baso # (Auto) 0.01 (0-0.2) K/uL Comprehensive Metabolic Panel 05/19/20 Range/Units 04:44 Sodium 137 (136-145) mmol/L Potassium 3.9 (3.5-5.1) mmol/L Chloride 105 (98-107) mmol/L Carbon Dioxide 28 (21-32) mmol/L BUN 14 (7-18) mg/dl Creatinine 0.69 (0.6-1.2) mg/dl Glucose 108 H (70-99) mg/dl Calcium 8.9 (8.5-10.1) mg/dl Intake and Output 05/19/20 05/19/20 05/19/20 06:59 14:59 22:59 Intake Total 650 / 1220 715 / 715 Balance 650 / 1220 715 / 715 Intake: IV 500 / 500 Nss 500 ml @ 500 mls/hr IV .Q1H 500 / 500 ONE Rx#:[id number] Oral 150 / 720 715 / 715 Other: Weight 101.1 kg Weight Measurement Method Standing Scale (1) HTN (hypertension) Hypertension type: unspecified Qualified Code(s): I10 - Essential (primary) hypertension
[2020-05-19] MEDS ORDERED: DIGOXIN 125 MCG in SYRINGE 9.5 ML IV STA (15:21)
--- NOTE | 2020-05-19 15:51 | Communication Note ---
Date of Service: May 19, 2020 Zeus Ramírez, updated by phone.
[2020-05-19] MEDS: DIGOXIN 0.125 MG TAB PO SCH (16:01)
[2020-05-19] MEDS: METOPROLOL TARTRATE 100 MG TAB PO SCH (21:05)
[2020-05-20] MEDS: CEFEPIME 2,000 MG in SYRINGE 0 ML IV SCH ×2 (06:08→14:30)
[2020-05-20] MEDS: LEVOTHYROXINE SODIUM 50 MCG TABLET PO SCH (06:08)
[2020-05-20 06:28] LABS: Basophils # (auto) 0.03 K/uL (0-0.2); Basophils % (auto) 0.4 %; Eosinophils # (auto) 0.19 K/uL (0-0.5); Eosinophils % (auto) 2.7 %; Hematocrit (blood only) 37.1 % (37-47); Hemoglobin 12.2 g/dL (12.0-16.0); Immature Granulocytes # (auto) 0.01 K/uL (0.00-0.02); Immature Granulocytes % (auto) 0.1 %; Lymphocytes # (auto) 1.43 K/uL (1.2-3.4); Lymphocytes % (auto) 20.5 %; Mean Corpuscular Hemoglobin 31.7 pg (25-34); Mean Corpuscular Hgb Conc 32.9 g/dL (32-36); Mean Corpuscular Volume 96.4 fL (80-100); Mean Platelet Volume 10.5 fL (7.4-10.4); Monocytes # (auto) 0.57 K/uL (0.11-0.59); Monocytes % (auto) 8.2 %; Neutrophils # (auto) 4.75 K/uL (1.4-6.5); Neutrophils % (auto) 68.1 %; Platelet Count 245 K/uL (130-400); RDW Coefficient of Variation 12.9 % (11.5-14.5); RDW Standard Deviation 44.9 fL (36.4-46.3); Red Blood Count 3.85 M/uL (4.2-5.4); White Blood Count 6.98 K/uL (4.8-10.8)
[2020-05-20 06:57] LABS: BUN Creatinine Ratio 20.4 (10-20); Creatinine Clr Calc Pharmacy 84.7 ml/min; Est GFR (Non-African American) 82.9; Potassium 4.2 mmol/L (3.5-5.1)
[2020-05-20] MEDS: METOPROLOL TARTRATE 100 MG TAB PO SCH (09:22)
[2020-05-20] MEDS: ASPIRIN 81 MG ECTAB PO SCH (09:22)
[2020-05-20] MEDS: ATORVASTATIN 40 MG TAB PO SCH (09:23)
[2020-05-20] MEDS: CLOPIDOGREL BISULFATE 75 MG TAB PO SCH (09:23)
[2020-05-20] MEDS: PANTOprazole 40 MG TAB PO SCH (09:23)
[2020-05-20] MEDS: INSULIN ASPART 100 UNITS/ML 3 ML PEN SC SCH ×2 (09:25→12:12)
[2020-05-20] MEDS ORDERED: COLCHICINE 0.6 MG TAB PO SCH (10:30)
[2020-05-20] MEDS ORDERED: LOSARTAN POTASSIUM 50 MG TAB PO SCH (10:30)
--- NOTE | 2020-05-20 10:37 | Cardiology Progress Note ---
Date of Service May 20, 2020 Assessment & Plan (1) Cardiac tamponade: Patient is recovering nicely and overall feels well. Echocardiogram demonstrates no change in small pericardial effusion. Event appears to be secondary to small micro perforation without recurrence of bleeding. Plan: Change metoprolol tartrate to metoprolol succinate. Resume losartan for hypertension at reduced dose 50 mg/day. Add colchicine at 0.6 mg twice per day for 1 week then once per day Continue aspirin and Plavix Continue to hold Eliquis until seen on return Outpatient appointment arranged with Dr. Dowling on 05/24/2020 with limited echo prior (2) Chronic atrial fibrillation: (3) CAD (coronary artery disease): (4) HTN (hypertension): (5) Pericardial effusion: (6) Presence of stent in LAD coronary artery: Admission and Anticipated Discharge Date Admission Date: May 16, 2020 Subjective Patient was seen and examined, chart, medications, telemetry reviewed. Patient ambulatory in the hallway feels "tremendously better". No chest pains or shortness of breath. No dizziness or lightheadedness. Heart rates are trending higher as his blood pressure. Echocardiogram this morning on preliminary review reveals no worsening effusion, mildly better preserved LV systolic function Physical Exam Constitutional: WD/WN, vitals as above Eyes: PERRL, conjunctivae normal, anicteric sclerae ENMT: external ear and nose normal, oropharynx normal Neck: trachea midline, no thyromegaly Respiratory: normal respiratory effort, lungs clear to auscultation Cardiovascular: Rate/Rhythm: regular rate and regular rhythm Heart Sounds: normal S1 and normal S2; no gallop, no murmur and no cardiac rub Palpation: normal PMI Vessels: normal carotid upstroke and radial pulses present; no JVD and no carotid bruit Extremities: no edema Chest (Breasts): Additional Comments: Pericardiocentesis access site without drainage Gastrointestinal (Abdomen): normal bowel sounds, soft, nontender, no hepatosplenomegaly Musculoskeletal: no cyanosis or clubbing, extremities motor strength 5/5 Skin: no rashes, warm and dry Neurologic: PERRL, EOMI, accommodation nl, no face palsy, no dysarthria Psychiatric: A+Ox3, euthymic affect Results & Data ([facility]) Vital Signs (Past 12 Hours) Vital Signs Temp Pulse Resp BP Pulse Ox 05/20/20 08:14 36.5 C 110 H 18 147/88 H 96 05/20/20 04:00 36.6 C 103 H 18 141/85 H 96 05/19/20 23:50 36.5 C 92 H 18 122/86 96 Laboratory Results Laboratory Results - last 24 hr 05/19/20 05/19/20 05/19/20 11:28 16:34 19:51 WBC RBC Hgb Hct MCV MCH MCHC RDW Std Deviation RDW Coeff of Ana Plt Count MPV Immature Gran % (Auto) Neut % (Auto) Lymph % (Auto) [place] % (Auto) Eos % (Auto) Baso % (Auto) Neut # (Auto) Lymph # (Auto) [place] # (Auto) Eos # (Auto) Baso # (Auto) Immature Gran # (Auto) Sodium Potassium Chloride Carbon Dioxide Anion Gap BUN Creatinine Est Cr Clr Drug Dosing Est GFR ( Amer) Est GFR (Non-Af Amer) BUN/Creatinine Ratio Glucose POC Glucose 121 H 101 H 122 H Calcium 05/20/20 05/20/20 05/20/20 06:07 06:07 07:30 WBC 6.98 RBC 3.85 L Hgb 12.2 Hct 37.1 MCV 96.4 MCH 31.7 MCHC 32.9 RDW Std Deviation 44.9 RDW Coeff of Ana 12.9 Plt Count 245 MPV 10.5 H Immature Gran % (Auto) 0.1 Neut % (Auto) 68.1 Lymph % (Auto) 20.5 [place] % (Auto) 8.2 Eos % (Auto) 2.7 Baso % (Auto) 0.4 Neut # (Auto) 4.75 Lymph # (Auto) 1.43 [place] # (Auto) 0.57 Eos # (Auto) 0.19 Baso # (Auto) 0.03 Immature Gran # (Auto) 0.01 Sodium 141 Potassium 4.2 Chloride 110 H Carbon Dioxide 27 Anion Gap 5.0 BUN 15 Creatinine 0.73 Est Cr Clr Drug Dosing 84.7 Est GFR ( Amer) 96.0 Est GFR (Non-Af Amer) 82.9 BUN/Creatinine Ratio 20.4 H Glucose 97 POC Glucose 105 H Calcium 9.0 (1) HTN (hypertension) Hypertension type: unspecified Qualified Code(s): I10 - Essential (primary) hypertension
[2020-05-20] MEDS: DIGOXIN 0.125 MG TAB PO SCH (15:44)
--- NOTE | 2020-05-20 16:48 | Discharge Summary ---
Date of Service May 20, 2020 Admission HPI Per Admitting Provider This is a 69 y/o female with a PMH of atrial fibrillation on chronic anticoagulation, DM2, hypothyroidism, HTN, dyslipidemia, and obesity who presented for an outpatient diagnostic cardiac catheterization due to an a bnormal stress test. Pt was initially scheduled to undergo total hip arthoplasty this month but pre-operative work-up included an abnormal dobutamine stress test that was borderline positive for inducible ischemia. Surgery was postponed and diagnostic cath was scheduled for today. Procedure revealed LAD stenosis so converted to a therapeutic cath and drug-eluting stent placed in the proximal LAD. Post-cath, pt apparently developed shortness of breath and hypotension with SBP as low as 70. Stat ECHO revealed an enlarging pericardial effusion with tamponade so pt taken emergency back to flue dust laborer for a pericardiocentesis. Emergently intubated prior to second procedure. We have been asked to assist with the ICU admission to our service. Pt seen in the ICU post-procedure and is currently confused and agitated due to the sedation so history was unobtainable. [facility] records and [facility] charts were extensively reviewed. Admission Exam Per Admitting Provider Constitutional: WD/WN, vitals as above agitated, frequently yelling Neck: trachea midline Respiratory: Auscultation: lungs clear to auscultation bilaterally, + diminished lung sounds (but poor inspiratory effort) and + wheezes; no rales and no rhonchi Cardiovascular: Rate/Rhythm: + tachycardic and + irregularly irregular Extremities: no pedal edema Gastrointestinal (Abdomen): Inspection/Auscultation: normal bowel sounds; abdomen not distended Percussion/Palpation: abdomen soft Musculoskeletal: mitts in place on bilateral hands Skin: no rashes, warm and dry Neurologic: + confused Principal Diagnosis Coronary Artery Disease s/p PCI with Drug Eluting Stent Placement to LAD; Cardiac Tamponade, Pericardial Effusion, s/p Pericardiocentesis Discharge Exam General- oriented x 3, not in distress, speaks in sentences with no effort or accessory muscle use Eyes- anicteric Neck- no JVD Lungs- clear breath sounds bilaterally, no wheezing/rales Heart- normal rate, irregularly irregular rhythm; no murmurs Abdomen- normal bowel sounds, nondistended, soft, nontender Extremities- no pretibial edema, no calf tenderness Neuro- alert, oriented x 3; no gross focal neurologic deficits Skin- warm & dry Discharge Data Allergies Allergy/AdvReac Type Severity Reaction Status Date / Time dofetilide [From Tikosyn] AdvReac Tachycardia Verified 05/16/20 07:23 Consultations 05/16/20 14:18 Consult Case Management - Discharge Planning Routine Consult Extra Gang Supervisor Routine 05/16/20 17:15 Consult Cardiology Routine Procedures Performed Operation Date: 05/16/20 08:00 Actual Procedures p Cath, Left with Cors and Vent - Karl Millan DO s Cineradiography w/Routine Exam - Kobe Baker MD s Drug Eluting Stent SGl Vessel - Kobe Baker MD s IVUS Coronary Single Vessel - Kobe Baker MD Operation Date: 05/16/20 13:00 Actual Procedures s Cath, Left with Cors and Vent - Kobe Baker MD s Cineradiography w/Routine Exam - Kobe Baker MD p Pericardiocentesis Initial - Kobe Baker MD Ordered Studies 05/16/20 07:49 CL Cath Imgs for PACS use only Stat 05/16/20 13:48 CL Cath Imgs for PACS use only Routine 05/16/20 16:54 CL IVUS Coronary Single Vessel Routine Hospital Course (1) Cardiac tamponade: Per admitting service notes Pt underwent PCI with single JACK to proximal LAD - subsequently in recovery, she developed acute onset of SOB and hypotension. On stat ECHO noted to have pericardial effusion with tamponade - s/p pericardiocentesis. Transferred to ICU post-procedure. Intubated in flue dust laborer prior to pericardiocentesis but post- procedure was successfully extubated. Levophed drip successfully discontinued. per Software Architect: Culprit likely tiny wire related microperforation of the distal LAD at time of PCI. Status post pericardiocentesis, draining hemorrhagic fluid 195 cc Repeat echo 05/18/2020 reveals interval improvement, small residual circumferential pericardial effusion noted without tamponade. BP stable Chest pain-free usual Eliquis on hold Cleared for discharge by Software Architect, discharge medications: ASA, Plavix Lipitor 40mg Colchicine BID x 1 week, then daily follow up with Software Architect in 1 week Possible UTI - based on UA - Urine culture: pending - given empiric Cefepime IV x 2 days - transitioned to Cefdinir 300mg BID x 3 days to complete 5 day course (2) Pericardial effusion: See plan for #1 (3) CAD (coronary artery disease): s/p JACK to LAD Continue metoprolol, Aspirin, Plavix, atorvastatin (4) Chronic atrial fibrillation: Eliquis currently on hold Metoprolol tartrate changed to 100mg BID, and Digoxin reduced to 0.125 mg daily (5) Dyslipidemia: Lipitor 40 mg daily (6) HTN (hypertension): Metoprolol tartrate changed to 100mg BID, Losartan decreased to 50mg po daily (7) Hypothyroidism: TSH 1.3 Levothyroxine continued (8) Type 2 diabetes mellitus: - consulted pharm for glycemic management - continue usual oral regimen Disposition discharge to home ff up with PCP and Software Architect in 1 week Total Time Total Time Spent Total Time Spent (In Minutes): > 30 minutes Discharge Plan Discharge Items Patient Disposition: Home - Self-Care Reason For Visit: UNSTABLE ANGINA Discharge Diagnosis: CAD status post stenting of left anterior descending artery; Hemorrhagic pericardial effusion Activity: Per Instructions section Lifting: Wait until after follow-up appointment Exercise/Sports: Wait until after follow-up appointment Driving/Machine Use: No driving until reevaluated by primary care physician Non-emergency contact: Primary Care Provider and Software Architect Call non-emergency contact if: you have any medication questions, your symptoms worsen, your pain is not controlled, your pain is worsening, your pain is unusual for you, your pain is concerning for you, you have a fever, your wound has increased redness, your wound has increased drainage and your wound pain has increased Follow-up/Referrals: Sheldon Dowling MD [Physician] - 05/24/20 11:30 am Thompson Berger MD [Primary Care Provider] - (Date & Time 05/27/2020 11:20 AM Provider Vannessa Kinney [facility] ) Diet: Carb Consistent or DM2 and Heart Healthy Addtl Attending Provider Instructions: Please review your new medication list as per discussion and follow instructions carefully. Take aspirin and Plavix every day. Stop taking Eliquis. The die mechanic will further advise you regarding this medication on your follow-up visit. Call primary care physician or return to the ER immediately if with recurrence or worsening of symptoms, Eluding chest pain, shortness of breath, palpitations, dizziness. Follow-up with your primary care physician in 1 week as noted above. Follow-up with [facility] die mechanic Dr. Sheldon Dowling on May 24, 2020 as noted above. ACTIVITY RECOMMENDATIONS: It is common to feel weak and fatigue for a few days. * Do not drive or operate any motorized equipment for the next three days. * Limit stair usage (2 or 3 trips a day only) for the next three days. * Do not lift anything heavier than 10 pounds for the next three days. * Do not engage in vigorous exercise or any sports for the next five days. * You may shower the day after your procedure, but do not immerse the area for three days. Cleanse the site gently with soap and water. SPECIAL CARE INSTRUCTIONS: * You may replace the pressure dressing or band-aid the morning after the procedure. * After your procedure, it is normal to have a small bruise or small lump at the site. Examine your site daily for any change in the bruise or lump, redness, swelling, drainage or numbness. Notify your doctor if any change. BLEEDING: * If there is a small amount of bleeding at the site, lie down and apply firm pressure with a clean cloth for ten minutes. When the bleeding stops, lie quietly keeping the procedure limb straight for six hours. Notify your doctor as soon as possible. * If the bleeding does not stop after ten minutes or if there is a large amount of bleeding or spurting, call 911 immediately. Continue to lie down and hold firm pressure until help arrives. SKIN IRRITATION: * You may experience some redness and/or swelling in the area where radiation was administered. If any skin irritation occurs, please contact your family physician. FOLLOW UP VISIT: Keep any scheduled doctor appointments. Pending Studies at Discharge: No Stand-Alone Forms: My [facility] [employer] Medications and DC Order Prescriptions: New cefdinir 300 mg capsule 300 mg PO Q12H Qty: 6 RF: 0 losartan 50 mg Tablet 50 mg PO QAM Qty: 30 RF: 2 metoprolol succinate 50 mg Tablet Extended Release 24 Hr 100 mg PO BID Qty: 60 RF: 2 digoxin [Digitek] 125 mcg (0.125 mg) Tablet 0.125 mg PO DAILY@1600 Qty: 30 RF: 2 colchicine [Colcrys] 0.6 mg Tablet 0.6 mg PO UD Qty: 30 RF: 2 atorvastatin 40 mg Tablet 40 mg PO QAM Qty: 30 RF: 2 aspirin [Ecotrin Low Strength] 81 mg tablet,delayed release (DR/EC) 81 mg PO DAILY Qty: 30 RF: 2 clopidogrel [Plavix] 75 mg tablet 75 mg PO DAILY Qty: 30 RF: 2 Continued levothyroxine [Synthroid] 50 mcg Tablet 50 mcg PO DAILY RF: 0 metformin 1,000 mg Tablet 1,000 mg PO BID RF: 0 cyanocobalamin (vitamin B-12) 1,000 mcg Capsule 1,000 mcg PO DAILY RF: 0 Rybelsus 7 mg Tablet 7 mg PO DAILY RF: 0 Discontinued digoxin 250 mcg (0.25 mg) Tablet 250 mcg PO DAILY RF: 0 losartan [Cozaar] 100 mg Tablet 100 mg PO DAILY RF: 0 rosuvastatin [Crestor] 5 mg Tablet 5 mg PO DAILY RF: 0 apixaban 5 mg Tablet 5 mg PO BID RF: 0 metoprolol succinate 200 mg Capsule,Sprinkle,Er 24hr 200 mg PO DAILY RF: 0 Discharge Orders: Discharge Order (Routine); Ordered 05/20/20 Ordered By: Jeovanny Parsno/Other Patient Handouts: Diabetes and Heart Disease, Medicine for Cholesterol Control, Understanding Atrial Fibrillation Admission Data Admit Date/Time: 05/16/20 14:18 Attending Provider: Jeovanny Prasad Admit Provider: Robert Marino Primary Care Provider: Thompson Berger Other Providers: Govind Love ; Sandor Moreno ; Robert Marino Other Interventions: Discharge Summary Assessment (RN) Last Done: 05/20/20 17:03
[2020-05-20] MEDS ORDERED: METOPROLOL SUCC 50MG EXT REL TAB PO SCH (21:00)
--- NOTE | 2020-05-24 22:24 | Hospitalist Progress Note ---
Date of Service delayed entry date of service 05/20/20 May 24, 2020 Assessment & Plan (1) Cardiac tamponade: (1) Cardiac tamponade: Per admitting service notes Pt underwent PCI with single JACK to proximal LAD - subsequently in recovery, she developed acute onset of SOB and hypotension. On stat ECHO noted to have pericardial effusion with tamponade - s/p pericardiocentesis. Transferred to ICU post-procedure. Intubated in drop crew laborer prior to pericardiocentesis but post-procedure was successfully extubated. Levophed drip successfully discontinued. per Warehouse Sorter: Culprit likely tiny wire related microperforation of the distal LAD at time of PCI. Status post pericardiocentesis, draining hemorrhagic fluid 195 cc Repeat echo 05/18/2020 reveals interval improvement, small residual circumferential pericardial effusion noted without tamponade. BP stable Chest pain-free usual Eliquis on hold Cleared for discharge by Warehouse Sorter, discharge medications: ASA, Plavix Lipitor 40mg Colchicine BID x 1 week, then daily follow up with Warehouse Sorter in 1 week Possible UTI - based on UA - Urine culture: pending - given empiric Cefepime IV x 2 days - transitioned to Cefdinir 300mg BID x 3 days to complete 5 day course (2) Pericardial effusion: See plan for #1 (3) CAD (coronary artery disease): s/p JACK to LAD Continue metoprolol, Aspirin, Plavix, atorvastatin (4) Chronic atrial fibrillation: Eliquis currently on hold Metoprolol tartrate changed to 100mg BID, and Digoxin reduced to 0.125 mg daily (5) Dyslipidemia: Lipitor 40 mg daily (6) HTN (hypertension): Metoprolol tartrate changed to 100mg BID, Losartan decreased to 50mg po daily (7) Hypothyroidism: TSH 1.3 Levothyroxine continued (8) Type 2 diabetes mellitus: - consulted pharm for glycemic management - continue usual oral regimen Disposition discharge to home ff up with PCP and Warehouse Sorter in 1 week Admission and Anticipated Discharge Date Admission Date: May 16, 2020 Subjective ff up for CAD s/p stent, cardiac tamponade seen resting in chair, comfortable in good spirits no chest pain, dyspnea, palpitations, dizziness no other symptoms states she is ready and would like to be discharged Review of Systems Review of Systems: All systems reviewed & are unremarkable except as noted in Subjective Physical Exam Physical Exam: General- oriented x 3, not in distress, speaks in sentences wi th no effort or accessory muscle use Eyes- anicteric Neck- no JVD Lungs- clear breath sounds bilaterally, no wheezing/rales Heart- normal rate, irregularly irregular rhythm; no murmurs Abdomen- normal bowel sounds, nondistended, soft, nontender Extremities- no pretibial edema, no calf tenderness Neuro- alert, oriented x 3; no gross focal neurologic deficits Skin- warm & dry Results & Data Results & Data ([facility]) Vital Signs (Past 12 Hours) all noted and reviewed
== END 2020-05-20 17:45 | disposition home or self-care (01) | DRG 271 ==
LOC: CC 06:55 → SUATTDRO 14:18 → 1E 14:18 → 2S 05-18 13:20

== ENCOUNTER 2022-04-08 18:42 | Observation (INO) ==
[2022-04-08 19:25] LABS: Basophils # (auto) 0.05 K/uL (0-0.2); Basophils % (auto) 0.8 %; Eosinophils # (auto) 0.26 K/uL (0-0.50); Eosinophils % (auto) 3.9 %; Hematocrit (blood only) 37.6 % (34.1-44.9); Hemoglobin 11.9 g/dl (12.0-16.0); Immature Granulocytes # (auto) 0.01 K/uL (0.00-0.02); Immature Granulocytes % (auto) 0.2 %; Lymphocytes # (auto) 1.41 K/uL (1.2-3.4); Lymphocytes % (auto) 21.4 %; Mean Corpuscular Hemoglobin 28.2 pg (25.0-34.0); Mean Corpuscular Hgb Conc 31.6 g/dL (32.0-36.0); Mean Corpuscular Volume 89.1 fL (80.0-100.0); Mean Platelet Volume 10.2 fL (9.4-12.3); Monocytes # (auto) 0.54 K/uL (0.24-0.82); Monocytes % (auto) 8.2 %; Neutrophils # (auto) 4.33 K/uL (1.4-6.5); Neutrophils % (auto) 65.5 %; Platelet Count 248 K/uL (130-400); RDW Coefficient of Variation 14.6 % (11.5-14.5); RDW Standard Deviation 46.5 fL (36.4-46.3); Red Blood Count 4.22 M/uL (3.93-5.22)
[2022-04-08 19:27] LABS: Appearance Urine Clear (Clear); Bacteria Urine Automated Negative (Negative); Bilirubin Urine Negative (Negative); Blood Urine Negative (Negative); Color Urine Yellow; Epithelial Cell Urine Auto >30 /lpf (0-5); Glucose Urine UA Negative (Negative); Ketones Urine Negative (Negative); Leukocyte Esterase Urine Trace (Negative); Nitrite Urine Negative (Negative); Protein Urine Negative (Negative); RBC Urine Automated 0-4 /hpf (0-4); Specific Gravity Urine 1.013 (1.000-1.030); Urobilinogen Urine Negative (Negative)
[2022-04-08 19:44] LABS: Albumin Globulin Ratio 1.7 (0.9-2); Albumin Level 4.2 gm/dl (3.4-5.0); BUN Creatinine Ratio 20.7 (10-20); Bilirubin,Total 0.5 mg/dl (0.2-1.0); Calcium 9.7 mg/dl (8.5-10.1); Creatinine Clr Calc Pharmacy 64.5 ml/min; Est GFR (African American) 76.6 ml/min; Est GFR (Non-African American) 66.1 ml/min; Globulin 2.5 gm/dl (2.5-4.0); Potassium 4.4 mmol/L (3.5-5.1); Total Protein 6.7 gm/dl (6.0-8.3)
[2022-04-08] MEDS ORDERED: SODIUM CHLORIDE 0.9% 500 ML IV ONE (20:17)
[2022-04-08 20:47] LABS: Magnesium 1.6 mg/dl (1.7-2.4); Phosphorus 4.4 mg/dl (2.5-4.9)
[2022-04-08 20:52] LABS: Troponin I High Sensitivity 8.4 pg/ml (0-14)
[2022-04-08] MEDS ORDERED: OPTIRAY 320 500ml IV ONE (20:52)
--- NOTE | 2022-04-08 20:58 | XRay Report ---
XR chest 1V portable CLINICAL HISTORY: confusion TECHNIQUE: Single frontal radiograph of the chest was obtained. Comparison: Comparison is made to chest radiograph 05/17/2020 FINDINGS: No lines and tubes are seen. Cardiomegaly is noted. The lungs are clear. No evidence of pleural effus ion or pneumothorax. IMPRESSION: Cardiomegaly without acute abnormality. ACT 112: Negative or not required by law. Electronically signed by: Jabier Junior M.D. 04/08/2022 8:56 PM
--- NOTE | 2022-04-08 21:15 | CT Scan Report ---
CT angio head w con, CT angio neck with con, CT head/brain wo con CLINICAL HISTORY: transient confusion, aphasia TECHNIQUE: Contiguous axial CT images of the head were acquired from the base of the skull to the gucci gina without intravenous contrast administration. CT angiography of the head and neck was performed f ollowing intravenous administration of iodinated contrast. Coronal and sagittal MIPS were obtained fr om the axial data set and were submitted for review. Automated dose lowering techniques and/or adjus tment according to patient size were utilized for this examination. All measurements were calculated based on NASCET criteria. CT DOSE: 1023.35 mGy.cm Comparison: None available at the time of this dictation. FINDINGS: CT head: There is no acute intracranial hemorrhage or evidence of acute territorial infarction. No sh ift of the midline structures, mass effect, or extra-axial abnormalities are shown. Lungs and soft tissues are unremarkable. CTA Neck: A 3 vessel aortic arch is shown. Atherosclerotic plaque is present in the aortic arch. Th ere is no plaque at the origins of the innominate, left and right common carotid, or left subclavian arteries. The common carotid, external carotid, cervical segments of the internal carotid arteries, and the cervical segments of the vertebral arteries are patent without hemodynamically significant st enosis. The vertebral arteries are codominant. CTA Head: The anterior and posterior cerebral circulations are patent. No hemodynamically significan t stenosis, aneurysm, dissection, or arteriovenous malformation is shown. Atherosclerotic disease is noted. IMPRESSION: 1. No acute intracranial hemorrhage, evidence of acute territorial infarction, or other acute intrac ranial disease process. 2. No occlusion, hemodynamically significant stenosis, or dissection in the major cervical arteries. 3. No occlusion, hemodynamically significant stenosis, aneurysm, dissection, or arteriovenous malfor mation in the major intracranial arteries. Assessment of stenosis of the internal carotid arteries is based on NASCET criteria. ACT 112: Negative or not required by law. Electronically signed by: Jabier Junior M.D. 04/08/2022 9:13 PM
--- NOTE | 2022-04-08 23:32 | Emergency Department Note ---
Impression & Plan Aphasia, Hypertension, Stroke-like symptom, Atrial fibrillation, Hypomagnesemia ED Provider Note NAME: MITUL GALLO AGE: 71 SEX: F ARRIVES VIA: Walk-In INFORMANT: Patient ED PROVIDER(S): Rupesh Vincent MD CHIEF COMPLAINT: Aphasia. PLAN: Disposition: Admit MEDICAL DECISION MAKING: The patient is a pleasant 71-year-old woman with a past medical history of CAD, history of PCI, atrial fibrillation on Eliquis, hypertension, hyperlipidemia who presents to the emergency department accompanied by her for evaluation of transient episode of aphasia prior to arrival that lasted approximately an hour-hour and a half. They report that the patient was in the garage looking through items to "get rid of" and when her came into the garage and found her she was unable to complete sentences and had severe word finding. They report the garage door was open and had good ventilation. There is no combustion ongoing in the garage at the time. They report she had a similar episode years ago [place] and had negative CT imaging and was ultimately diagnosed with a urinary tract infection. They suspected that this may be similar case. Otherwise she denies any recent fevers, chills, cough, congestion, GI or symptoms. On arrival the patient is no acute distress, afebrile stable vital signs. She has no focal neurologic deficit at this time. EKG demonstrates atrial fibrillation without overt acute ischemia. Chest x-ray negative for acute cardiopulmonary process. WBC, platelets within normal limits. H/H similar to prior range values. Chemistry without metabolic acidosis. Magnesium 1.6 with repletion provided. High-sensitivity troponin 8.4, within normal limits. TSH within normal limits. UA without evidence of infection. COVID-19 RNA, OSMIN test was negative. CT of the head and CT of the head and neck were performed and were negative for acute process. Given the patient's prolonged symptoms of aphasia which are concerning for possible TIA they did agree with plan for admission for further management. Case was discussed with Dr. Dumont, [facility] hospitalist, who will evaluate the patient for admission. Triage Nursing notes reviewed and agree them. Prior medical records reviewed Vital Signs: reviewed and remarkable for hypertension. Differential diagnosis: Infection, dehydration, metabolic abnormality, hypo/hyperglycemia, electrolyte disturbance, anemia, hypoxia, cardiac sources, intracerebral event, toxicologic, neurologic, as well as other pathologies. ER treatment provided: See below. Diagnostics interpreted by me: ECG: Atrial fibrillation, 100 bpm, no ectopy, nonspecific ST and T wave abnormality, no overt ST elevation or depression, QTC 420, QRS 100. Cardiac Monitoring: An order for continuous cardiac monitoring was placed and demonstrated Laboratory studies: See below Imaging studies: See below Consultation(s): Case was discussed with Dr. Dumont, [facility] hospitalist, who will evaluate the patient for admission. HPI: The patient is a pleasant 71-year-old woman with a past medical history of CAD, history of PCI, atrial fibrillation on Eliquis, hypertension, hyperlipi demia who presents to the emergency department accompanied by her for evaluation of transient episode of aphasia prior to arrival that lasted approximately an hour-hour and a half. They report that the patient was in the garage looking through items to "get rid of" and when her came into the garage and found her she was unable to complete sentences and had severe word finding. They report the garage door was open and had good ventilation. There is no combustion ongoing in the garage at the time. They report she had a similar episode years ago when [place] and had negative CT imaging and was ultimately diagnosed with a urinary tract infection. They suspected that this may be similar case. Otherwise she denies any recent fevers, chills, cough, congestion, GI or symptoms. ROS: See above HPI for pertinent positives & negatives. A total of 10 systems reviewed and were otherwise negative. VITALS:See Below PHYSICAL EXAMINATION: GENERAL: Awake, alert, well-appearing, in no distress HENT: Normocephalic, atraumatic. Oropharynx with dry mucous membranes and otherw ise unremarkable. EYES: Normal conjunctiva. Sclera non-icteric. EOMI. No nystamgus. PEARRL. NECK: Supple. No nuchal rigidity. FROM. No JVD. RESPIRATORY: Clear to auscultation. CARDIAC: Regular rate, irregular rhythm. Extremities warm and well perfused. Pulses equal. ABDOMEN: Soft, non-distended. No tenderness to palpation. No rebound or guarding. No masses. RECTAL: Deferred. MUSCULOSKELETAL: Chest examination reveals no tenderness. The back is symmetrical on inspection without obvious abnormality. There is no CVA tenderness to palpation. No joint edema. LOWER EXTREMITIES: Calves are equal size bilaterally and non-tender. No edema. No discoloration. NEURO: Normal sensorium. No sensory or motor deficits noted. Speech is fluent. CN II-XII grossly intact. 5/5 strength and SILT x 4 extremities. Cerebellar function intact including [id number], alternating palms, [id number]. SKIN: No rash or jaundice noted. Rupesh Vincent MD Past Med/Surg History Medical History Chronic atrial fibrillation Dyslipidemia HTN (hypertension) Hypothyroidism Obesity Type 2 diabetes mellitus Surgical History History of appendectomy History of cataract surgery Family History Mother Diabetes Uterine cancer Sister Diabetes Kidney disease Father Heart disease Hypertension Kidney disease Social History Smoking Status: Never smoker Hx Alcohol Use: Yes Hx Substance Use: No Preferred Language: Haitian Communication Ability: Effective Beliefs That Will Affect Care: None Current Living Situation: Spouse Feels Safe at Home: Yes Assistive Devices: Cane Allergies Allergies Allergy/AdvReac Type Severity Reaction Status Date / Time dofetilide [From Tikosyn] AdvReac Tachycardia Verified 04/08/22 20:36 Home Meds Home Medications Medication Instructions Recorded Confirmed cyanocobalamin (vitamin B-12) 1,000 mcg PO DAILY 05/16/20 04/08/22 1,000 mcg capsule levothyroxine 50 mcg tablet 50 mcg PO QAM 05/16/20 04/08/22 (Synthroid) semaglutide 7 mg tablet (Rybelsus) 7 mg PO DAILY 05/16/20 04/08/22 apixaban 5 mg tablet (Eliquis) 5 mg PO BID 04/08/22 04/08/22 digoxin 125 mcg (0.125 mg) tablet 0.125 mg PO QAM 04/08/22 04/08/22 (Digitek) hydroxychloroquine 200 mg tablet 400 mg PO HS 04/08/22 04/08/22 ipratropium bromide 21 mcg (0.03 2 spray intranasal QID 04/08/22 04/08/22 %) nasal spray losartan 50 mg tablet 50 mg PO HS 04/08/22 04/08/22 metformin 500 mg tablet,extended 1,000 mg PO AMPM 04/08/22 04/08/22 release 24 hr metoprolol succinate 200 mg 200 mg PO QAM 04/08/22 04/08/22 tablet,extended release 24 hr rosuvastatin 10 mg tablet 10 mg PO QPM 04/08/22 04/08/22 Previous Rx's Medication Instructions Recorded aspirin 81 mg tablet,delayed 81 mg PO DAILY #30 tabs 05/20/20 release (Ecotrin Low Strength) Results & Data (ED) Vital Signs Vital Signs - 24 hr 04/08/22 19:02 04/08/22 18:43 04/08/22 20:16 Temperature 36.8 C Temperature Source Temporal Artery Scan Pulse Rate 82 91 H Pulse Rate from SpO2 Sensor 92 H Respiratory Rate 18 22 Respiratory Effort / Characteristics Non-Labored Spontaneous Respiratory Depth Normal Normal Blood Pressure 156/103 H Blood Pressure Mean 120 Pulse Oximetry 96 90 Oxygen Delivery Method Room Air Room Air Sepsis Recent Fever Within 48 Hours No Sepsis New/Unexplained Change in Mental Status No Sepsis Action Taken by Nursing No Action Required 04/08/22 20:30 04/08/22 20:32 04/08/22 20:32 Temperature Temperature Source Pulse Rate 110 H 109 H Pulse Rate from SpO2 Sensor 108 H 94 H Respiratory Rate 27 H 18 Respiratory Effort / Characteristics Respiratory Depth Blood Pressure 177/104 H Blood Pressure Mean 128 Pulse Oximetry 97 83 L Oxygen Delivery Method Sepsis Recent Fever Within 48 Hours Sepsis New/Unexplained Change in Mental Status Sepsis Action Taken by Nursing 04/08/22 20:53 04/08/22 21:00 04/08/22 21:00 Temperature Temperature Source Pulse Rate 92 H 102 H Pulse Rate from SpO2 Sensor 109 H Respiratory Rate 20 Respiratory Effort / Characteristics Respiratory Depth Blood Pressure 177/116 H Blood Pressure Mean 136 Pulse Oximetry 99 Oxygen Delivery Method Sepsis Recent Fever Within 48 Hours Sepsis New/Unexplained Change in Mental Status Sepsis Action Taken by Nursing 04/08/22 21:15 04/08/22 21:30 04/08/22 21:30 Temperature Temperature Source Pulse Rate 100 H 101 H Pulse Rate from SpO2 Sensor 108 H 92 H Respiratory Rate 13 17 Respiratory Effort / Characteristics Respiratory Depth Blood Pressure 187/110 H Blood Pressure Mean 135 Pulse Oximetry 99 78 L Oxygen Delivery Method Sepsis Recent Fever Within 48 Hours Sepsis New/Unexplained Change in Mental Status Sepsis Action Taken by Nursing 04/08/22 21:45 04/08/22 22:00 04/08/22 22:00 Temperature Temperature Source Pulse Rate 106 H 114 H Pulse Rate from SpO2 Sensor 96 H 99 H Respiratory Rate 17 18 Respiratory Effort / Characteristics Respiratory Depth Blood Pressure 194/113 H Blood Pressure Mean 140 Pulse Oximetry 81 L 91 Oxygen Delivery Method Sepsis Recent Fever Within 48 Hours Sepsis New/Unexplained Change in Mental Status Sepsis Action Taken by Nursing Laboratory Data Attestation: I reviewed the patient's lab results. Result diagrams: 04/08/22 19:11 04/08/22 19:11 Lab Results 04/08/22 04/08/22 04/08/22 Range/Units 19:11 19:11 19:11 WBC 6.60 (4.8-10.8) K/ul RBC 4.22 (3.93-5.22) M/uL Hgb 11.9 L (12.0-16.0) g/dl Hct 37.6 (34.1-44.9) % MCV 89.1 (80.0-100.0) fL MCH 28.2 (25.0-34.0) pg MCHC 31.6 L (32.0-36.0) g/dL RDW Std Deviation 46.5 H (36.4-46.3) fL RDW Coeff of Ana 14.6 H (11.5-14.5) % Plt Count 248 (130-400) K/uL MPV 10.2 (9.4-12.3) fL Immature Gran % (Auto) 0.2 % Neut % (Auto) 65.5 % Lymph % (Auto) 21.4 % [place] % (Auto) 8.2 % Eos % (Auto) 3.9 % Baso % (Auto) 0.8 % Neut # (Auto) 4.33 (1.4-6.5) K/uL Lymph # (Auto) 1.41 (1.2-3.4) K/uL [place] # (Auto) 0.54 (0.24-0.82) K/uL Eos # (Auto) 0.26 (0-0.50) K/uL Baso # (Auto) 0.05 (0-0.2) K/uL Immature Gran # (Auto) 0.01 (0.00-0.02) K/uL Sodium 138 (136-145) mmol/L Potassium 4.4 (3.5-5.1) mmol/L Chloride 103 (98-107) mmol/L Carbon Dioxide 27 (21-32) mmol/L Anion Gap 8 (3-11) BUN 18 (6-23) mg/dl Creatinine 0.87 (0.6-1.2) mg/dl Est Cr Clr Drug Dosing 64.5 ml/min Est GFR ( Amer) 76.6 ml/min Est GFR (Non-Af Amer) 66.1 ml/min BUN/Creatinine Ratio 20.7 H (10-20) Glucose 89 (70-99(Fasting)) mg/dl Calcium 9.7 (8.5-10.1) mg/dl Phosphorus (2.5-4.9) mg/dl Magnesium (1.7-2.4) mg/dl Total Bilirubin 0.5 (0.2-1.0) mg/dl AST 18 (13-39) U/L ALT 11 (7-52) U/L Alkaline Phosphatase 118 H (34-104) U/L Troponin I High Sens (0-14) pg/ml Total Protein 6.7 (6.0-8.3) gm/dl Albumin 4.2 (3.4-5.0) gm/dl Globulin 2.5 (2.5-4.0) gm/dl Albumin/Globulin Ratio 1.7 (0.9-2) TSH (0.300-4.500) uIu/ml Urine Color Yellow Urine Appearance Clear (Clear) Urine pH 5.0 (4.5-7.5) Ur Specific [place] 1.013 (1.000-1.030) Urine Protein Negative (Negative) Urine Glucose (UA) Negative (Negative) Urine Ketones Negative (Negative) Urine Blood Negative (Negative) Urine Nitrite Negative (Negative) Urine Bilirubin Negative (Negative) Urine Urobilinogen Negative (Negative) Ur Leukocyte Esterase Trace H (Negative) Urine WBC (Auto) 1-5 (0-5) /hpf Urine RBC (Auto) 0-4 (0-4) /hpf U Hyaline Cast (Auto) 1-5 (0-5) /lpf U Epithel Cells (Auto) >30 H (0-5) /lpf Urine Bacteria (Auto) Negative (Negative) SARS-CoV-2, RNA, NAAT (NEGATIVE) 04/08/22 04/08/22 04/08/22 Range/Units 19:11 19:11 21:05 WBC (4.8-10.8) K/ul RBC (3.93-5.22) M/uL Hgb (12.0-16.0) g/dl Hct (34.1-44.9) % MCV (80.0-100.0) fL MCH (25.0-34.0) pg MCHC (32.0-36.0) g/dL RDW Std Deviation (36.4-46.3) fL RDW Coeff of Ana (11.5-14.5) % Plt Count (130-400) K/uL MPV (9.4-12.3) fL Immature Gran % (Auto) % Neut % (Auto) % Lymph % (Auto) % [place] % (Auto) % Eos % (Auto) % Baso % (Auto) % Neut # (Auto) (1.4-6.5) K/uL Lymph # (Auto) (1.2-3.4) K/uL [place] # (Auto) (0.24-0.82) K/uL Eos # (Auto) (0-0.50) K/uL Baso # (Auto) (0-0.2) K/uL Immature Gran # (Auto) (0.00-0.02) K/uL Sodium (136-145) mmol/L Potassium (3.5-5.1) mmol/L Chloride (98-107) mmol/L Carbon Dioxide (21-32) mmol/L Anion Gap (3-11) BUN (6-23) mg/dl Creatinine (0.6-1.2) mg/dl Est Cr Clr Drug Dosing ml/min Est GFR ( Amer) ml/min Est GFR (Non-Af Amer) ml/min BUN/Creatinine Ratio (10-20) Glucose (70-99(Fasting)) mg/dl Calcium (8.5-10.1) mg/dl Phosphorus 4.4 (2.5-4.9) mg/dl Magnesium 1.6 L (1.7-2.4) mg/dl Total Bilirubin (0.2-1.0) mg/dl AST (13-39) U/L ALT (7-52) U/L Alkaline Phosphatase (34-104) U/L Troponin I High Sens 8.4 (0-14) pg/ml Total Protein (6.0-8.3) gm/dl Albumin (3.4-5.0) gm/dl Globulin (2.5-4.0) gm/dl Albumin/Globulin Ratio (0.9-2) TSH 4.229 (0.300-4.500) uIu/ml Urine Color Urine Appearance (Clear) Urine pH (4.5-7.5) Ur Specific [place] (1.000-1.030) Urine Protein (Negative) Urine Glucose (UA) (Negative) Urine Ketones (Negative) Urine Blood (Negative) Urine Nitrite (Negative) Urine Bilirubin (Negative) Urine Urobilinogen (Negative) Ur Leukocyte Esterase (Negative) Urine WBC (Auto) (0-5) /hpf Urine RBC (Auto) (0-4) /hpf U Hyaline Cast (Auto) (0-5) /lpf U Epithel Cells (Auto) (0-5) /lpf Urine Bacteria (Auto) (Negative) SARS-CoV-2, RNA, NAAT NEGATIVE (NEGATIVE) Administered Medications Discontinued Medications Sodium Chloride (Nss) 500 mls @ 999 mls/hr IV .Q31M ONE Stop: 04/08/22 20:47 Last Infusion: 04/08/22 22:25 Dose: 0 mls/hr Documented By: Admin: 04/08/22 21:12 Dose: 999 mls/hr Documented By: CB Magnesium Sulfate/Dextrose (Magnesium Sulfate / D5w) 1 gm in 100 mls @ 100 mls/hr IV Q1H KEEGAN Stop: 04/09/22 01:28 Last Admin: 04/09/22 00:59 Dose: 100 mls/hr Documented By: Infusion: 04/09/22 00:54 Dose: 0 mls/hr Documented By: Admin: 04/08/22 23:48 Dose: 100 mls/hr Documented By: JOSEFINA Ioversol (Optiray 320 500ml) 107 ml IV ONCE ONE Stop: 04/08/22 20:53 Last Admin: 04/08/22 20:52 Dose: 107 ml Documented By: [facility] Imaging Data Radiologist's Impression: Chest X-Ray 04/08/22 20:17 XR chest 1V portable CLINICAL HISTORY: confusion TECHNIQUE: Single frontal radiograph of the chest was obtained. Comparison: Comparison is made to chest radiograph 05/17/2020 FINDINGS: No lines and tubes are seen. Cardiomegaly is noted. The lungs are clear. No evidence of pleural effusion or pneumothorax. IMPRESSION: Cardiomegaly without acute abnormality. ACT 112: Negative or not required by law. Electronically signed by: Jabier Junior M.D. 04/08/2022 8:[address] 04/08/22 20:19 CT angio head w con, CT angio neck with con, CT head/brain wo con CLINICAL HISTORY: transient confusion, aphasia TECHNIQUE: Contiguous axial CT images of the head were acquired from the base of the skull to the vertex without intravenous contrast administration. CT angiography of the head and neck was performed following intravenous administration of iodinated contrast. Coronal and sagittal MIPS were obtained from the axial data set and were submitted for review. Automated dose lowering techniques and/or adjustment according to patient size were utilized for this examination. All measurements were calculated based on NASCET criteria. CT DOSE: 1023.35 mGy.cm Comparison: None available at the time of this dictation. FINDINGS: CT head: There is no acute intracranial hemorrhage or evidence of acute territorial infarction. No shift of the midline structures, mass effect, or extra-axial abnormalities are shown. Lungs and soft tissues are unremarkable. CTA Neck: A 3 vessel aortic arch is shown. Atherosclerotic plaque is present in the aortic arch. There is no plaque at the origins of the innominate, left and right common carotid, or left subclavian arteries. The common carotid, external carotid, cervical segments of the internal carotid arteries, and the cervical segments of the vertebral arteries are patent without hemodynamically si gnificant stenosis. The vertebral arteries are codominant. CTA Head: The anterior and posterior cerebral circulations are patent. No hemodynamically significant stenosis, aneurysm, dissection, or arteriovenous malformation is shown. Atherosclerotic disease is noted. IMPRESSION: 1. No acute intracranial hemorrhage, evidence of acute territorial infarction, or other acute intracranial disease process. 2. No occlusion, hemodynamically significant stenosis, or dissection in the major cervical arteries. 3. No occlusion, hemodynamically significant stenosis, aneurysm, dissection, or arteriovenous malformation in the major intracranial arteries. Assessment of stenosis of the internal carotid arteries is based on NASCET criteria. ACT 112: Negative or not required by law. Electronically signed by: Jabier Junior M.D. 04/08/2022 9:13 PM Head CTA 04/08/22 20:19 CT angio head w con, CT angio neck with con, CT head/brain wo con CLINICAL HISTORY: transient confusion, aphasia TECHNIQUE: Contiguous axial CT images of the head were acquired from the base of the skull to the vertex without intravenous contrast administration. CT angiography of the head and neck was performed following intravenous administration of iodinated contrast. Coronal and sagittal MIPS were obtained from the axial data set and were submitted for review. Automated dose lowering techniques and/or adjustment according to patient size were utilized for this examination. All measurements were calculated based on NASCET criteria. CT DOSE: 1023.35 mGy.cm Comparison: None available at the time of this dictation. FINDINGS: CT head: There is no acute intracranial hemorrhage or evidence of acute territorial infarction. No shift of the midline structures, mass effect, or extra-axial abnormalities are shown. Lungs and soft tissues are unremarkable. CTA Neck: A 3 vessel aortic arch is shown. Atherosclerotic plaque is present in the aortic arch. There is no plaque at the origins of the innominate, left and right common carotid, or left subclavian arteries. The common carotid, external carotid, cervical segments of the internal carotid arteries, and the cervical segments of the vertebral arteries are patent without hemodynamically significant stenosis. The vertebral arteries are codominant. CTA Head: The anterior and posterior cerebral circulations are patent. No hemodynamically significant stenosis, aneurysm, dissection, or arteriovenous malformation is shown. Atherosclerotic disease is noted. IMPRESSION: 1. No acute intracranial hemorrhage, evidence of acute territorial infarction, or other acute intracranial disease process. 2. No occlusion, hemodynamically significant stenosis, or dissection in the major cervical arteries. 3. No occlusion, hemodynamically significant stenosis, aneurysm, dissection, or arteriovenous malformation in the major intracranial arteries. Assessment of stenosis of the internal carotid arteries is based on NASCET criteria. ACT 112: Negative or not required by law. Electronically signed by: Jabier Junior M.D. 04/08/2022 9:13 PM Neck CTA 04/08/22 20:19 CT angio head w con, CT angio neck with con, CT head/brain wo con CLINICAL HISTORY: transient confusion, aphasia TECHNIQUE: Contiguous axial CT images of the head were acquired from the base of the skull to the vertex without intravenous contrast administration. CT angiography of the head and neck was performed following intravenous administration of iodinated contrast. Coronal and sagittal MIPS were obtained from the axial data set and were submitted for review. Automated dose lowering techniques and/or adjustment according to patient size were utilized for this examination. All measurements were calculated based on NASCET criteria. CT DOSE: 1023.35 mGy.cm Comparison: None available at the time of this dictation. FINDINGS: CT head: There is no acute intracranial hemorrhage or evidence of acute territorial infarction. No shift of the midline structures, mass effect, or extra-axial abnormalities are shown. Lungs and soft tissues are unremarkable. CTA Neck: A 3 vessel aortic arch is shown. Atherosclerotic plaque is present in the aortic arch. There is no plaque at the origins of the innominate, left and right common carotid, or left subclavian arteries. The common carotid, external carotid, cervical segments of the internal carotid arteries, and the cervical segments of the vertebral arteries are patent without hemodynamically significant stenosis. The vertebral arteries are codominant. CTA Head: The anterior and posterior cerebral circulations are patent. No hemodynamically significant stenosis, aneurysm, dissection, or arteriovenous malformation is shown. Atherosclerotic disease is noted. IMPRESSION: 1. No acute intracranial hemorrhage, evidence of acute territorial infarction, or other acute intracranial disease process. 2. No occlusion, hemodynamically significant stenosis, or dissection in the major cervical arteries. 3. No occlusion, hemodynamically significant stenosis, aneurysm, dissection, or arteriovenous malformation in the major intracranial arteries. Assessment of stenosis of the internal carotid arteries is based on NASCET criteria. ACT 112: Negative or not required by law. Electronically signed by: Jabier Junior M.D. 04/08/2022 9:13 PM Discharge Plan Visit Data Chief Complaint: Urinary Symptoms Stated Complaint: CONFUSSION, UTI, ED Provider: Rupesh Vincent Discharge Problem: Aphasia, Hypertension, Stroke-like symptom, Atrial fibrillation, Hypomagnesemia Forms Stand Alone Forms: [email or web address] Prescriptions Prescriptions: No Action levothyroxine [Synthroid] 50 mcg Tablet 50 mcg PO QAM cyanocobalamin (vitamin B-12) 1,000 mcg Capsule 1,000 mcg PO DAILY Rybelsus 7 mg Tablet 7 mg PO DAILY aspirin [Ecotrin Low Strength] 81 mg tablet,delayed release (DR/EC) 81 mg PO DAILY Qty: 30 2RF Rx Instructions: always take with a full stomach hydroxychloroquine 200 mg tablet 400 mg PO HS Rx Instructions: take before betime ipratropium bromide 21 mcg (0.03 %) spray,non-aerosol 2 spray INTRANASAL QID Eliquis 5 mg tablet 5 mg PO BID losartan 50 mg tablet 50 mg PO HS digoxin [Digitek] 125 mcg (0.125 mg) tablet 0.125 mg PO QAM rosuvastatin 10 mg tablet 10 mg PO QPM metoprolol succinate 200 mg tablet extended release 24 hr 200 mg PO QAM metformin 500 mg tablet extended release 24 hr 1,000 mg PO AMPM Rx Instructions: take with meals Referrals Referrals: Thompson Berger MD [Primary Care Provider] -
[2022-04-08] MEDS: MAGNESIUM SULFATE / D5W 1 GM/100 ML BAG IV SCH (23:48)
[2022-04-09] MEDS: MAGNESIUM SULFATE / D5W 1 GM/100 ML BAG IV SCH (00:59)
[2022-04-09] MEDS ORDERED: LABETALOL HCL IV 5 MG/ML 20ML IV PRN (02:48)
[2022-04-09] MEDS ORDERED: ACETAMINOPHEN 325 MG TAB PO PRN (02:48)
[2022-04-09] MEDS ORDERED: NITROGLYCERIN SL 0.4 MG/TAB TAB SL PRN (02:48)
[2022-04-09] MEDS ORDERED: PHARMACIST DISCHARGE MED REC CONSULT PRN (02:48)
--- NOTE | 2022-04-09 03:39 | History and Physical Report ---
DATE OF ADMISSION: 04/09/2022. CHIEF COMPLAINT: Stroke-like symptoms. HISTORY OF PRESENT ILLNESS: A 71-year-old female with past medical history significant for type 2 diabetes, hypothyroidism, hyperlipidemia, chronic atrial fibrillation, hypertension, obesity, status post left hip replacement, who presents with stroke-like symptoms. The patient lives with her . She ambulates with a cane. At around 3 p.m. on 04/08/2022, she was working in the garage when she suddenly felt word finding difficulty and difficulty making sentences and she came to the ER. Her symptoms lasted for about 1-1/2 to 2 hours. Workup in the ER is unrevealing so far. The patient had similar episode on 03/02/2022 when she was in [place] . At that time, she woke up at 2 a.m. with similar symptoms and she went to the ER by 3 a.m. Symptoms lasted similarly for 1-1/2 to 2 hours .She had workup done and she was treated for UTI and got discharged in the morning. Currently does not have any urinary symptoms. No burning micturition, no frequent urination. Denies any fever or chills. Denies any headache, no dizziness, no blurred visions or double visions, no earache. She has some runny nose. No sore throat. She has some occasional cough with whitish phlegm. No difficulty swallowing. No chest pain, no shortness of breath. No nausea, no vomiting, no abdominal pain. Normal bowel and bladder movements. Denies any blood in stools or black stools. No swelling in the legs. ALLERGIES: CODEINE. PAST MEDICAL HISTORY: As mentioned above. PAST SURGICAL HISTORY: Colonoscopy, breast needle biopsy, appendectomy, cataract, left total hip replacement. MEDICATIONS: The patient is on Eliquis 5 mg p.o. b.i.d., aspirin 81 mg p.o. daily, cyanocobalamin 1000 mcg p.o. daily, digoxin 0.125 mg p.o. daily, hydroxychloroquine 400 mg p.o. at bedtime, ipratropium bromide 2 sprays intranasally q.i.d., levothyroxine 50 mcg p.o. daily, losartan 50 mg p.o. at bedtime, metformin 1000 mg p.o. b.i.d., metoprolol succinate 100 mg p.o. daily, lovastatin 10 mg p.o. at bedtime, Rybelsus 7 mg p.o. daily. FAMILY HISTORY: Significant for mother has uterine cancer, diabetes. Father had heart disorder, hypertension, and renal failure. Sister has renal failure. Daughter has fibroids. Sister has diabetes. SOCIAL HISTORY: , lives with her . Quit smoking in 1999, averagely smoked 1 pack a day for 38 years. No alcohol use. No drug use. REVIEW OF SYSTEMS: As per HPI. Rest of the review of systems is negative. PHYSICAL EXAMINATION: GENERAL: The patient is of moderate build, not in acute distress. VITAL SIGNS: Temperature 36.8, pulse 114, respiratory rate 18, blood pressure 194/113, oxygen 94% on room air. HEENT: Pupils equal, round and reactive to light. Oral mucosa is moist. NECK: No JVD. No neck masses. CARDIOVASCULAR: S1 and S2 heard. Regular rate and rhythm. No murmur, no gallop. RESPIRATORY SYSTEM: Normal AP diameter. No accessory muscle use. No wheezing, no crackles. ABDOMEN: Soft, bowel sounds present, nontender, nondistended. CENTRAL NERVOUS SYSTEM: Alert and oriented. No facial droop seen. Speech is clear. Power 5/5 in all extremities. Coordination of movements normal. No pronator drift. Sensation is intact. EXTREMITIES: Mild pedal edema present, no erythema seen. LABORATORY DATA: WBC 6.6, hemoglobin 11.9, hematocrit 37.6, platelets 248. Sodium 138, potassium 4.4, chloride 103, bicarbonate 27, BUN 18, creatinine 0.8, serum glucose 89, calcium 9.7, phosphorus 4.4, magnesium 1.6, total bilirubin 0.5, AST 18, ALT 11, alkaline phosphatase 118. Troponin I high sensitivity 8.4. TSH 1.2. Urinalysis: Trace leukocyte esterase and bacteria negative. SARS-CoV-2 rapid test negative. IMAGING DATA: CT of the head unremarkable. CTA of the head and neck unremarkable. Chest x-ray, no acute findings. EKG: Atrial fibrillation at a rate of 100, nonspecific ST-T wave abnormalities. ASSESSMENT AND PLAN: This 71-year-old female presents with stroke-like symptoms. 1. Stroke like symptoms: Possible transient ischemic attack or cerebrovascular accident. Similar episode on 03/02/2022, got resolved in 1-1/2 to 2 hours. Had some word findings difficulty at 3 p.m., lasted for 1 to 1-1/2 hours . Imaging studies so far are unremarkable in the ER. We will do stroke workup with MRI scan and echo. Monitor in the tele floor. Speech evaluation , NPO except meds until speech evaluation. Consult neurology in the a.m. PT, OT in the a.m. 2. Chronic systolic congestive heart failure, recent echo showed EF of 40%. There was a plan for Lexiscan nuclear stress test and Zio patch. We will consult cardiology while patient in the hospital. Monitor for any volume overload. 3. History of atrial fibrillation. Continue her home metoprolol succinate, digoxin and Eliquis. 4. History of coronary artery disease, status post stent to proximal LAD and aspirin, statin, and beta shayy. 5. History of diabetes: Holding her home medications of semaglutide and metformin. Placed on insulin sliding scale. Follow the blood sugars. 6. Hypertension, on losartan and metoprolol succinate. We will allow for permissive hypotension. We will place on IV labetalol p.r.n. 7. Hypothyroidism: On Synthroid. 8. History of polymyalgia rheumatica, on Plaquenil. 9. Deep venous thrombosis prophylaxis: On Eliquis. DISPOSITION: Closely monitor in tele floor. Level 1 full code. Expect to discharge home and follow with family doctor. Job ID: [id number] [facility]
[2022-04-09] MEDS ORDERED: CARBOHYDRATES FOR HYPOGLYCEMIA PO PRN (03:45)
[2022-04-09] MEDS ORDERED: DEXTROSE 50% 50 ML SYRINGE IV PRN (03:45)
[2022-04-09] MEDS ORDERED: GLUCAGON FOR INJ 1 MG VIAL IM PRN (03:45)
[2022-04-09] MEDS ORDERED: GLUCOSE 40% GEL 15 GM TUBE PO PRN (03:45)
[2022-04-09] MEDS ORDERED: GLUCOSE 10 TAB/TUBE PO PRN (03:45)
[2022-04-09 05:52] LABS: Basophils # (auto) 0.04 K/uL (0-0.2); Basophils % (auto) 0.8 %; Eosinophils % (auto) 4.1 %; Hematocrit (blood only) 34.4 % (34.1-44.9); Hemoglobin 10.9 g/dl (12.0-16.0); Immature Granulocytes # (auto) 0.01 K/uL (0.00-0.02); Immature Granulocytes % (auto) 0.2 %; Lymphocytes # (auto) 0.97 K/uL (1.2-3.4); Lymphocytes % (auto) 19.7 %; Mean Corpuscular Hemoglobin 27.9 pg (25.0-34.0); Mean Corpuscular Hgb Conc 31.7 g/dL (32.0-36.0); Mean Corpuscular Volume 88.2 fL (80.0-100.0); Mean Platelet Volume 10.4 fL (9.4-12.3); Monocytes % (auto) 8.1 %; Neutrophils # (auto) 3.31 K/uL (1.4-6.5); Neutrophils % (auto) 67.1 %; Platelet Count 224 K/uL (130-400); RDW Coefficient of Variation 14.7 % (11.5-14.5); RDW Standard Deviation 47.5 fL (36.4-46.3); White Blood Count 4.93 K/ul (4.8-10.8)
[2022-04-09 06:20] LABS: BUN Creatinine Ratio 18.7 (10-20); Calcium 9.4 mg/dl (8.5-10.1); Chol HDL Ratio 2.2 (0-5); Creatinine Clr Calc Pharmacy 75.4 ml/min; Est GFR (African American) 91.7 ml/min; Est GFR (Non-African American) 79.1 ml/min; Potassium 4.1 mmol/L (3.5-5.1); Troponin I High Sensitivity 9.2 pg/ml (0-14)
[2022-04-09] MEDS ORDERED: LEVOTHYROXINE SODIUM 50 MCG TABLET PO SCH (06:30)
[2022-04-09 07:47] LABS: Estimated Average Glucose 114 mg/dl; Hemoglobin A1C 5.6 % (4.5-5.6)
[2022-04-09] MEDS ORDERED: CYANOCOBALAMIN (B-12) 500 MCG TABLET PO SCH (09:00)
[2022-04-09] MEDS ORDERED: APIXABAN 5 MG TABLET PO SCH (09:00)
[2022-04-09] MEDS ORDERED: METOPROLOL SUCC 50MG EXT REL TAB PO SCH (09:00)
[2022-04-09] MEDS ORDERED: ASPIRIN 81 MG ECTAB PO SCH (09:00)
[2022-04-09] MEDS: INSULIN ASPART PER UNIT SC SCH ×2 (09:03→12:45)
[2022-04-09] MEDS ORDERED: GADOBUTROL 65ML VIAL IV ONE (10:16)
--- NOTE | 2022-04-09 10:38 | Magnetic Resonance Report ---
MRI OF THE BRAIN WITHOUT AND WITH IV CONTRAST CLINICAL HISTORY: Stroke like symptoms. COMPARISON STUDY: Head CT and CTA of the head April 08, 2022. TECHNIQUE: Utilizing a 1.5 Jennifer magnet and dedicated coil, multiplanar, multiecho imaging of the br ain was performed pre and postcontrast administration. IV administration of 9 mL of Gadavist contras t was uneventful. FINDINGS: There are no foci of restricted diffusion to suggest acute infarct. No acute intracranial h emorrhage, midline shift or mass effect is present. Brain volume is normal. Ventricular system is nor mal. Basal cisterns are patent. Flow-voids for the major intracranial vessels are present. No intracr anial mass or pathologic enhancement. White matter T2 hyperintense foci suggest small vessel disease. Calvarial signal is normal. Orbits are unremarkable. There is no evidence for sinusitis. There is no mastoid fluid. IMPRESSION: 1. No acute intracranial findings. 2. No intracranial mass or pathologic enhancement. ACT 112: Negative or not required by law. Electronically signed by: Davey Fong M.D. 04/09/2022 10:36 AM
--- NOTE | 2022-04-09 10:38 | Cardiology Consultation ---
Date of Consultation April 09, 2022 Assessment & Plan (1) Stroke-like symptom: (2) CAD (coronary artery disease): (3) Chronic atrial fibrillation: (4) Dyslipidemia: (5) HTN (hypertension): (6) Systolic dysfunction: Plan Patient admitted to the hospital with strokelike symptoms, possible transient ischemic attack. MRI of the brain as well as neurology consultation are pending. Inflammatory markers requested. Blood pressure elevated on presentation, remaining elevated throughout the hospital course thus far. Recommend titration of losartan to 50 mg twice per day for additional blood pressure control. Consider addition of HCTZ next. Patient had fluid retention with remote use of low-dose amlodipine. Patient is chronically prescribed aspirin 81 mg/day for CAD and Eliquis anticoagulation (5 mg twice a day) for chronic atrial fibrillation, without recent interruption/lapse. She is chronically prescribed rosuvastatin and her LDL cholesterol is very well controlled. She does have type 2 diabetes mellitus; hemoglobin A1c was 5.3% on April 08, 2022. Recent outpatient preoperative resting echocardiography revealed mild to moderate reduction in LV systolic function (EF 40%) of unknown duration with workup underway, without evidence of acute symptomatic decomp ensated systolic heart failure by history or examination. Resting echocardiography pending this admission. Recommend continued evaluation of the TIA event. Supervising Physician Co-Signing Physician Notes I seen and examined the patient. Reviewed the medical record and discussed the case with Dede. The patient's was in the room during my exam. He relates a history where his did not eat anything on the day the patient had her TIA symptoms. She is a diabetic and on medications. He suspected that perhaps it was due to hypoglycemia. When the symptoms started he gave her chocolate milk and soup. Soon after her symptoms completely resolved. If the MRI studies are negative then I think this may be a likely scenario. The patient is to see neurology later today. From a cardiac standpoint I believe she is stable. History of Present Illness Reason for Consultation: CHF Requesting Physician: Tim Attending Physician: Marion History of Present Illness Mrs. Sulma Bain is a very pleasant 71-year-old female who was evaluated by the undersigned on April 01, 2022 for routine cardiology follow-up. At that time patient noted plans for future elective right hip replacement. Resting echocardiography was requested to assess LV systolic function and help guide perioperative management. The patient did not have signs or symptoms of acute decompensated systolic congestive heart failure at that time. Echocardiography on April 02, 2022 was abnormal, revealing moderate left ventricular systolic dysfunction with an ejection fraction of 40%. Further evaluation recommended including 3-day ZIO monitor to assess for adequate rate control, laboratory work, and Lexiscan nuclear stress testing. ZIO monitor has not yet been obtained. Laboratory work was performed yesterday (04/08/2022) morning and was okay. Lexiscan nuclear stress testing has yet to be arranged through scheduling. Yesterday, April 08, 2022, around 3 PM, the patient was in the garage cleaning. She notes that her Lopez noticed that she was not making complete sentences and that her speech was slurred. The episode lasted approximately 1.5 to 2 hours. She notes calling her PCPs office and being directed to the emergency room. She notes having had a similar episode while in [place] in early February, at that time with associated confusion. Patient admitted for observation and treated for urinary tract infection at that time. Upon arrival to the emergency room the patient was in no acute distress. She was afebrile, with stable vital signs. No focal neurological deficit observed. EKG revealed the patient's known chronic atrial fibrillation, without overt ischemia. The patient is chronically prescribed Eliquis anticoagulation, 5 mg twice per day, and aspirin 81 mg/day. She notes no recent interruption in medications, never missing Eliquis or aspirin. Mild hypomagnesemia noted on laboratory work. LDL cholesterol was 37 mg/deciliter. Inflammatory markers were not obtained. Chest x-ray showed cardiomegaly without acute abnormality. Patient underwent a CT scan of the head including CTA of the head and neck, revealing no acute intracranial hemorrhage, evidence of acute territorial infarction, or other acute intracranial disease process. There was no occlusion or hemodynamically significant stenosis or dissection in the major cervical arteries or in the major intracranial arteries. Brain MRI and neurology consultation are pending. On questioning this morning, the patient notes some bilateral temporal headaches and pressure. She denies visual changes, blurred vision, double vision, etc. No cough, chest congestion, chest pain, palpitations, new or worsening shortness of breath, orthopnea, PND, lower extremity peripheral edema, dizziness, lightheadedness, near-syncope, syncope, fevers, chills, epistaxis, hemoptysis, melena, hematochezia, or hematuria. Past Medical and Surgical History: Abnormal preoperative dobutamine stress echocardiography, prior to right hip replacement, was abnormal, leading to catheterization in April 2020 which revealed significant proximal LAD stent stenosis for which she underwent drug- eluting stent implantation. Procedure complicated by a micro perforation and pericardial effusion requiring percutaneous drainage, without persistent bleed. Chronic atrial fibrillation. Eliquis anticoagulation Hypertension. ? Asthmatic lung disease. Dyslipidemia Hypothyroidism Type 2 diabetes mellitus Polymyalgia rheumatica. B12 deficiency Osteoarthritis Status post left hip replacement Breast biopsy, benign Appendectomy Bilateral cataract extraction Family History: Mother with diabetes, passing with uterine cancer. Father with CAD and kidney issues. Two sisters, one passed with renal failure. Social History: Reformed smoker, quitting in 1999 after smoking from the age of 14 to 49. Alcohol: None in the last year, previously drinking a glass of wine or mixed drink once in a while. No illegal drug use. . One child, daughter. Retired academic support specialist. Complete Review of Systems: HEENT: Glasses. Cataracts status post extraction with postoperative complications. Ocular hypertension. No amaurosis fugax. Mouth: Dental implant. Cardiac: See above. GI/Abd: No dysphagia. No liver problems. No kidney problems. Vascular: No history of carotid artery disease. No history of AAA. No claudication. Hematologic: On Eliquis and aspirin. Musculoskeletal: Right hip discomfort. Neurologic: No history of seizure. Female : Negative. Endocrine: T2DM. + Hypothyroidism. Complete Review of Systems is as stated above, negative, or noncontributory. Allergies Allergy/AdvReac Type Severity Reaction Status Date / Time dofetilide [From Tikosyn] AdvReac Tachycardia Verified 04/08/22 20:36 Home Medications Medication Instructions Recorded Confirmed Type cyanocobalamin (vitamin B-12) 1,000 mcg PO DAILY 05/16/20 04/08/22 History 1,000 mcg capsule levothyroxine 50 mcg tablet 50 mcg PO QAM 05/16/20 04/08/22 History (Synthroid) semaglutide 7 mg tablet (Rybelsus) 7 mg PO DAILY 05/16/20 04/08/22 History aspirin 81 mg tablet,delayed 81 mg PO DAILY #30 tabs 05/20/20 04/08/22 Rx release (Ecotrin Low Strength) apixaban 5 mg tablet (Eliquis) 5 mg PO BID 04/08/22 04/08/22 History digoxin 125 mcg (0.125 mg) tablet 0.125 mg PO QAM 04/08/22 04/08/22 History (Digitek) hydroxychloroquine 200 mg tablet 400 mg PO HS 04/08/22 04/08/22 History ipratropium bromide 21 mcg (0.03 2 spray intranasal QID 04/08/22 04/08/22 History %) nasal spray losartan 50 mg tablet 50 mg PO HS 04/08/22 04/08/22 History metformin 500 mg tablet,extended 1,000 mg PO AMPM 04/08/22 04/08/22 History release 24 hr metoprolol succinate 200 mg 200 mg PO QAM 04/08/22 04/08/22 History tablet,extended release 24 hr rosuvastatin 10 mg tablet 10 mg PO QPM 04/08/22 04/08/22 History Patient History Medical History Chronic atrial fibrillation Dyslipidemia HTN (hypertension) Hypothyroidism Obesity Type 2 diabetes mellitus Surgical History History of appendectomy History of cataract surgery Family History Mother Diabetes Uterine cancer Sister Diabetes Kidney disease Father Heart disease Hypertension Kidney disease Social History Smoking Status: Former smoker Hx Alcohol Use: No Hx Substance Use: No Preferred Language: Maltese Communication Ability: Effective Felt Finisher Required: No Beliefs That Will Affect Care: None Current Living Situation: Spouse Other Information That Helps Us Care for You: No Feels Safe at Home: Yes Assistive Devices: Cane Physical Exam Physical Exam: General: A&Ox3. NAD. HENT: Normocephalic. Atraumatic. Eyes: PER. Conjunctiva pink, sclera clear. Neck: No carotid bruits. No overt JVD. Heart: Irregularly irregular, 84 bpm. No murmur. Lungs: Clear to auscultation. Abdomen: +BS. Extremities: No significant edema. Varicosities. No clubbing. No cyanosis. Limited neurological examination is without focal deficits. Pulses: radial=2/4, posterior tibial=2/4. Results & Data ([facility]) Vital Signs (Past 12 Hours) Vital Signs Temp Pulse Pulse Resp BP BP Pulse Ox 04/09/22 08:00 37.0 C 83 18 149/79 H 97 04/09/22 03:17 83 04/09/22 02:40 36.5 C 20 155/80 H 98 04/09/22 02:10 86 21 04/09/22 02:00 88 18 177/99 H 97 04/09/22 01:50 87 19 04/09/22 01:40 102 H 21 04/09/22 01:30 88 18 04/09/22 01:20 87 19 04/09/22 01:10 88 18 04/09/22 01:00 95 H 21 04/09/22 00:58 113 H 17 98 O2 Del Method 04/09/22 08:00 04/09/22 03:17 04/09/22 02:40 Room Air 04/09/22 02:10 04/09/22 02:00 04/09/22 01:50 04/09/22 01:40 04/09/22 01:30 04/09/22 01:20 04/09/22 01:10 04/09/22 01:00 04/09/22 00:58 Room Air Laboratory Results Cardiac Enzymes 04/08/22 04/08/22 04/09/22 Range/Units 19:11 19:11 05:14 AST 18 (13-39) U/L Troponin I High Sens 8.4 9.2 (0-14) pg/ml Lipids 04/09/22 Range/Units 05:14 Triglycerides 77 (0-150) mg/dl Cholesterol 96 (0-200) mg/dl HDL Cholesterol 44 mg/dl Cholesterol/HDL Ratio 2.2 (0-5) CBC 04/08/22 04/09/22 Range/Units 19:11 05:14 WBC 6.60 4.93 (4.8-10.8) K/ul RBC 4.22 3.90 L (3.93-5.22) M/uL Hgb 11.9 L 10.9 L (12.0-16.0) g/dl Hct 37.6 34.4 (34.1-44.9) % Plt Count 248 224 (130-400) K/uL Neut # (Auto) 4.33 3.31 (1.4-6.5) K/uL Lymph # (Auto) 1.41 0.97 L (1.2-3.4) K/uL [place] # (Auto) 0.54 0.40 (0.24-0.82) K/uL Eos # (Auto) 0.26 0.20 (0-0.50) K/uL Baso # (Auto) 0.05 0.04 (0-0.2) K/uL Comprehensive Metabolic Panel 04/08/22 04/09/22 Range/Units 19:11 05:14 Sodium 138 139 (136-145) mmol/L Potassium 4.4 4.1 (3.5-5.1) mmol/L Chloride 103 104 (98-107) mmol/L Carbon Dioxide 27 29 (21-32) mmol/L BUN 18 14 (6-23) mg/dl Creatinine 0.87 0.75 (0.6-1.2) mg/dl Glucose 89 82 (70-99(Fasting)) mg/dl Calcium 9.7 9.4 (8.5-10.1) mg/dl AST 18 (13-39) U/L ALT 11 (7-52) U/L Alkaline Phosphatase 118 H (34-104) U/L Total Protein 6.7 (6.0-8.3) gm/dl Albumin 4.2 (3.4-5.0) gm/dl Intake and Output 04/08/22 04/09/22 04/09/22 22:59 06:59 14:59 Intake Total 500 / 700 200 / 700 Output Total 450 / 450 Balance 500 / 250 -250 / 250 Intake: IV 500 / 700 200 / 700 Magnesium Sulfate / D5w 1 gm In 200 / 200 100 ml @ 100 mls/hr IV Q1H KEEGAN Rx#:[id number] Sodium Chloride 0.9% 500 ml @ 500 / 500 999 mls/hr IV .Q31M ONE Rx#: [id number] Output: Urine 450 / 450 Other: # Unmeasured Voids 2 Weight 88.3 kg 89.9 kg 89.9 kg Weight Measurement Method [facility] Weight 04/10/22 06:59 Weight 89.9 kg Diagnostic Findings April 02, 2022 TTE Interpretation Summary (as per Dr. Espinoza): Qualitative LV ejection Fraction = 40%. The left ventricular cavity size is mildly enlarged. The right ventricular cavity size is normal The right ventricular systolic function is mildly reduced. The left atrium is severely enlarged (>48 ml/m^2,). The right atrium is severely enlarged. Mild aortic valve regurgitation is present. Mild mitral regurgitation is present. Mild tricuspid regurgitation is present. No pericardial effusion is noted. Dilated IVC with reduced collapsability with sniff indicates an elevated right atrial pressure of 15mmHg. The estimated pulmonary artery systolic pressure is 41mm Hg. There was atrial fibrillation during the examination. Telemetry: Atrial fibrillation in the 80's and 90's Echo this admission: Pending (1) HTN (hypertension) Hypertension type: unspecified Qualified Code(s): I10 - Essential (primary) hypertension
[2022-04-09] MEDS ORDERED: LOSARTAN POTASSIUM 50 MG TAB PO SCH ×2 (11:00→21:00)
--- NOTE | 2022-04-09 14:15 | Neurology Consultation ---
Date of Consultation April 09, 2022 Assessment & Plan (1) Stroke-like symptom: Impression: The patient had a short lasting episode of expressive speech difficulty with some confusion. Based on multiple stroke risk factors, this was likely a transient ischemic attack. However, the patient was fasting for over 8 hours, which raise concern for hypoglycemic event as her symptoms improved after eating chocolate in 10 minutes. Because of stereotyped episodes, complex partial seizures should be considered in differential. Imaging studies are negative for acute cerebrovascular accident. Plan/recommendations: The patient will stay on current medications including Eliquis, aspirin, and statin. Management of hypertension and diabetes mellitus. If the patient experiences new neurological symptoms, then she will go to emergency department without waiting. Stroke risk factors and symptoms are f ully explained to patient. The patient is neurologically stable to discharge home. Follow-up with neurology clinic. Outpatient EEG is recommended to investigate for epileptogenic activity. (2) Atrial fibrillation: Impression: Right is controlled on current treatment. The patient has been on Eliquis. (3) Dyslipidemia: Impression: The patient has been on statin and current LDL level is lower than 70. (4) HTN (hypertension): Impression: During hospital stay, the patient's blood pressure was elevated, and medications were adjusted by cardiology. Plan: The patient will monitor her blood pressure twice a day and will document them until seeing her primary care physician. (5) Type 2 diabetes mellitus: Impression: Blood sugar control has been very well. Plan Thank you for the consultation. History of Present Illness Reason for Consultation: Speech disturbance with some confusion Requesting Physician: Sharon Schultz MD Attending Physician: Sharon Schultz MD History of Present Illness The patient is a very pleasant, 71-year-old female, who was brought to emergency department yesterday afternoon around 5 PM, after the patient experienced expressive speech difficulty and some confusion around 3 PM. She was working in [employer], and when her arrived, she was unable to express herself. According , the patient was somewhat confused as well. There was no weakness, numbness, facial asymmetry, or diaphoresis. As the patient has not eaten any food for 8 hours, hypoglycemia was suspected by the patient's , and the patient ate a chocolate, and according to , her speech was back to normal in 10 minutes. In emergency department, she was symptom-free. Head CT, CT angiography of head and neck were unremarkable. The patient has been on Eliquis as well as aspirin for cardiac indications and chronic atrial fibrillation. They reported that the patient had another similar speech disturbance episode 6 weeks ago, when they were traveling in [place]. At that time, she was diagnosed with urinary tract infection. Since admission, the patient has been neurologically intact without any residual neurological deficit. Brain MRI was negative for acute cerebrovascular accident. Her blood pressure was running high. She was seen by cardiology, and they adjusted blood pressure medications. She has been on statin. LDL level is 37. TTE was unremarkable. The patient denies having similar episodes or other symptoms to suggest seizure-like activity. However, because of stereotyped episodes, complex partial seizures considered in differential, and we suggested EEG, but they prefer this study to be done in outpatient setting. I have reviewed the patient's chart including imaging studies and visualized them personally. I have discussed the case with the patient and hospitalist physician. Allergies Allergy/AdvReac Type Severity Reaction Status Date / Time dofetilide [From Tikosyn] AdvReac Tachycardia Verified 04/08/22 20:36 Home Medications Medication Instructions Recorded Confirmed Type cyanocobalamin (vitamin B-12) 1,000 mcg PO DAILY 05/16/20 04/08/22 History 1,000 mcg capsule levothyroxine 50 mcg tablet 50 mcg PO QAM 05/16/20 04/08/22 History (Synthroid) semaglutide 7 mg tablet (Rybelsus) 7 mg PO DAILY 05/16/20 04/08/22 History aspirin 81 mg tablet,delayed 81 mg PO DAILY #30 tabs 05/20/20 04/08/22 Rx release (Ecotrin Low Strength) apixaban 5 mg tablet (Eliquis) 5 mg PO BID 04/08/22 04/08/22 History digoxin 125 mcg (0.125 mg) tablet 0.125 mg PO QAM 04/08/22 04/08/22 History (Digitek) hydroxychloroquine 200 mg tablet 400 mg PO HS 04/08/22 04/08/22 History ipratropium bromide 21 mcg (0.03 2 spray intranasal QID 04/08/22 04/08/22 History %) nasal spray losartan 50 mg tablet 50 mg PO HS 04/08/22 04/08/22 History metformin 500 mg tablet,extended 1,000 mg PO AMPM 04/08/22 04/08/22 History release 24 hr metoprolol succinate 200 mg 200 mg PO QAM 04/08/22 04/08/22 History tablet,extended release 24 hr rosuvastatin 10 mg tablet 10 mg PO QPM 04/08/22 04/08/22 History Patient History Medical History Chronic atrial fibrillation Dyslipidemia HTN (hypertension) Hypothyroidism Obesity Type 2 diabetes mellitus Surgical History History of appendectomy History of cataract surgery Family History Mother Diabetes Uterine cancer Sister Diabetes Kidney disease Father Heart disease Hypertension Kidney disease Social History Smoking Status: Former smoker Hx Alcohol Use: No Hx Substance Use: No Preferred Language: Albanian Communication Ability: Effective 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 HENT: Normal exam with inspection. CV: Hearth rhythm is irregularly irregular. Neck: Supple, no carotid bruits. Lungs: Non-labored and comfortable breathing. Abdomen: Soft, non-tender, non-distended. Skin: No rash or ecchymosis. Extremities: No edema or cyanosis NEUROLOGICAL EXAMINATION: Mental Status: Alert and oriented to place, person and time. Cranial Nerves: II-XII are intact. No nystagmus. Funduscopy: Normal looking optic discs. Motor: 5-/5 in all extremities without asymmetry except right hip flexors 4/5, partially due to hip arthritis Tone: Normal without spasticity or rigidity. Sensory: Intact to all sensory modalities except decreased sensation in toes. DTRs: 1+ in upper extremities and only trace in lower extremities symmetrically. No Babinsky. Coordination: No dysmetria with FTN testing. Speech: Fluent. Comprehension is intact. Gait: Slight limp due to hip problem. No ataxia. Can ambulate independently. Musculoskeletal: Normal muscle bulk, no atrophy. Results & Data ([facility]) Vital Signs (Past 12 Hours) Vital Signs Temp Pulse Pulse Resp BP Pulse Ox O2 Del Method 04/09/22 11:00 36.8 C 101 H 18 142/72 H 97 04/09/22 10:41 95 H 04/09/22 08:00 37.0 C 83 18 149/79 H 97 04/09/22 03:17 83 04/09/22 02:40 36.5 C 20 155/80 H 98 Room Air Laboratory Results Laboratory Results - last 24 hr 04/08/22 04/08/22 04/08/22 19:11 19:11 19:11 WBC 6.60 RBC 4.22 Hgb 11.9 L Hct 37.6 MCV 89.1 MCH 28.2 MCHC 31.6 L RDW Std Deviation 46.5 H RDW Coeff of Ana 14.6 H Plt Count 248 MPV 10.2 Immature Gran % (Auto) 0.2 Neut % (Auto) 65.5 Lymph % (Auto) 21.4 [place] % (Auto) 8.2 Eos % (Auto) 3.9 Baso % (Auto) 0.8 Neut # (Auto) 4.33 Lymph # (Auto) 1.41 [place] # (Auto) 0.54 Eos # (Auto) 0.26 Baso # (Auto) 0.05 Immature Gran # (Auto) 0.01 ESR Sodium 138 Potassium 4.4 Chloride 103 Carbon Dioxide 27 Anion Gap 8 BUN 18 Creatinine 0.87 Est Cr Clr Drug Dosing 64.5 Est GFR ( Amer) 76.6 Est GFR (Non-Af Amer) 66.1 BUN/Creatinine Ratio 20.7 H Glucose 89 POC Glucose Estimat Average Glucose Hemoglobin A1c Calcium 9.7 Phosphorus Magnesium Total Bilirubin 0.5 AST 18 ALT 11 Alkaline Phosphatase 118 H Troponin I High Sens C-Reactive Protein Total Protein 6.7 Albumin 4.2 Globulin 2.5 Albumin/Globulin Ratio 1.7 Triglycerides Cholesterol LDL Cholesterol, Calc VLDL Cholesterol, Calc HDL Cholesterol Cholesterol/HDL Ratio TSH Urine Color Yellow Urine Appearance Clear Urine pH 5.0 Ur Specific [place] 1.013 Urine Protein Negative Urine Glucose (UA) Negative Urine Ketones Negative Urine Blood Negative Urine Nitrite Negative Urine Bilirubin Negative Urine Urobilinogen Negative Ur Leukocyte Esterase Trace H Urine WBC (Auto) 1-5 Urine RBC (Auto) 0-4 U Hyaline Cast (Auto) 1-5 U Epithel Cells (Auto) >30 H Urine Bacteria (Auto) Negative SARS-CoV-2, RNA, NAAT 04/08/22 04/08/22 04/08/22 19:11 19:11 21:05 WBC RBC Hgb Hct MCV MCH MCHC RDW Std Deviation RDW Coeff of Ana Plt Count MPV Immature Gran % (Auto) Neut % (Auto) Lymph % (Auto) [place] % (Auto) Eos % (Auto) Baso % (Auto) Neut # (Auto) Lymph # (Auto) [place] # (Auto) Eos # (Auto) Baso # (Auto) Immature Gran # (Auto) ESR Sodium Potassium Chloride Carbon Dioxide Anion Gap BUN Creatinine Est Cr Clr Drug Dosing Est GFR ( Amer) Est GFR (Non-Af Amer) BUN/Creatinine Ratio Glucose POC Glucose Estimat Average Glucose Hemoglobin A1c Calcium Phosphorus 4.4 Magnesium 1.6 L Total Bilirubin AST ALT Alkaline Phosphatase Troponin I High Sens 8.4 C-Reactive Protein Total Protein Albumin Globulin Albumin/Globulin Ratio Triglycerides Cholesterol LDL Cholesterol, Calc VLDL Cholesterol, Calc HDL Cholesterol Cholesterol/HDL Ratio TSH 4.229 Urine Color Urine Appearance Urine pH Ur Specific [place] Urine Protein Urine Glucose (UA) Urine Ketones Urine Blood Urine Nitrite Urine Bilirubin Urine Urobilinogen Ur Leukocyte Esterase Urine WBC (Auto) Urine RBC (Auto) U Hyaline Cast (Auto) U Epithel Cells (Auto) Urine Bacteria (Auto) SARS-CoV-2, RNA, NAAT NEGATIVE 04/09/22 04/09/22 04/09/22 05:14 05:14 05:14 WBC 4.93 RBC 3.90 L Hgb 10.9 L Hct 34.4 MCV 88.2 MCH 27.9 MCHC 31.7 L RDW Std Deviation 47.5 H RDW Coeff of Ana 14.7 H Plt Count 224 MPV 10.4 Immature Gran % (Auto) 0.2 Neut % (Auto) 67.1 Lymph % (Auto) 19.7 [place] % (Auto) 8.1 Eos % (Auto) 4.1 Baso % (Auto) 0.8 Neut # (Auto) 3.31 Lymph # (Auto) 0.97 L [place] # (Auto) 0.40 Eos # (Auto) 0.20 Baso # (Auto) 0.04 Immature Gran # (Auto) 0.01 ESR Sodium 139 Potassium 4.1 Chloride 104 Carbon Dioxide 29 Anion Gap 6 BUN 14 Creatinine 0.75 Est Cr Clr Drug Dosing 75.4 Est GFR ( Amer) 91.7 Est GFR (Non-Af Amer) 79.1 BUN/Creatinine Ratio 18.7 Glucose 82 POC Glucose Estimat Average Glucose 114 Hemoglobin A1c 5.6 Calcium 9.4 Phosphorus Magnesium Total Bilirubin AST ALT Alkaline Phosphatase Troponin I High Sens 9.2 C-Reactive Protein Total Protein Albumin Globulin Albumin/Globulin Ratio Triglycerides 77 Cholesterol 96 LDL Cholesterol, Calc 37 VLDL Cholesterol, Calc 15 HDL Cholesterol 44 Cholesterol/HDL Ratio 2.2 TSH Urine Color Urine Appearance Urine pH Ur Specific [place] Urine Protein Urine Glucose (UA) Urine Ketones Urine Blood Urine Nitrite Urine Bilirubin Urine Urobilinogen Ur Leukocyte Esterase Urine WBC (Auto) Urine RBC (Auto) U Hyaline Cast (Auto) U Epithel Cells (Auto) Urine Bacteria (Auto) SARS-CoV-2, RNA, NAAT 04/09/22 04/09/22 04/09/22 05:14 05:14 08:55 WBC RBC Hgb Hct MCV MCH MCHC RDW Std Deviation RDW Coeff of Ana Plt Count MPV Immature Gran % (Auto) Neut % (Auto) Lymph % (Auto) [place] % (Auto) Eos % (Auto) Baso % (Auto) Neut # (Auto) Lymph # (Auto) [place] # (Auto) Eos # (Auto) Baso # (Auto) Immature Gran # (Auto) ESR 10 Sodium Potassium Chloride Carbon Dioxide Anion Gap BUN Creatinine Est Cr Clr Drug Dosing Est GFR ( Amer) Est GFR (Non-Af Amer) BUN/Creatinine Ratio Glucose POC Glucose 83 Estimat Average Glucose Hemoglobin A1c Calcium Phosphorus Magnesium Total Bilirubin AST ALT Alkaline Phosphatase Troponin I High Sens C-Reactive Protein < 0.50 Total Protein Albumin Globulin Albumin/Globulin Ratio Triglycerides Cholesterol LDL Cholesterol, Calc VLDL Cholesterol, Calc HDL Cholesterol Cholesterol/HDL Ratio TSH Urine Color Urine Appearance Urine pH Ur Specific [place] Urine Protein Urine Glucose (UA) Urine Ketones Urine Blood Urine Nitrite Urine Bilirubin Urine Urobilinogen Ur Leukocyte Esterase Urine WBC (Auto) Urine RBC (Auto) U Hyaline Cast (Auto) U Epithel Cells (Auto) Urine Bacteria (Auto) SARS-CoV-2, RNA, NAAT 04/09/22 11:36 WBC RBC Hgb Hct MCV MCH MCHC RDW Std Deviation RDW Coeff of Ana Plt Count MPV Immature Gran % (Auto) Neut % (Auto) Lymph % (Auto) [place] % (Auto) Eos % (Auto) Baso % (Auto) Neut # (Auto) Lymph # (Auto) [place] # (Auto) Eos # (Auto) Baso # (Auto) Immature Gran # (Auto) ESR Sodium Potassium Chloride Carbon Dioxide Anion Gap BUN Creatinine Est Cr Clr Drug Dosing Est GFR ( Amer) Est GFR (Non-Af Amer) BUN/Creatinine Ratio Glucose POC Glucose 109 H Estimat Average Glucose Hemoglobin A1c Calcium Phosphorus Magnesium Total Bilirubin AST ALT Alkaline Phosphatase Troponin I High Sens C-Reactive Protein Total Protein Albumin Globulin Albumin/Globulin Ratio Triglycerides Cholesterol LDL Cholesterol, Calc VLDL Cholesterol, Calc HDL Cholesterol Cholesterol/HDL Ratio TSH Urine Color Urine Appearance Urine pH Ur Specific [place] Urine Protein Urine Glucose (UA) Urine Ketones Urine Blood Urine Nitrite Urine Bilirubin Urine Urobilinogen Ur Leukocyte Esterase Urine WBC (Auto) Urine RBC (Auto) U Hyaline Cast (Auto) U Epithel Cells (Auto) Urine Bacteria (Auto) SARS-CoV-2, RNA, NAAT Diagnostic Findings Chest X-Ray 04/08/22 20:17 XR chest 1V portable CLINICAL HISTORY: confusion TECHNIQUE: Single frontal radiograph of the chest was obtained. Comparison: Comparison is made to chest radiograph 05/17/2020 FINDINGS: No lines and tubes are seen. Cardiomegaly is noted. The lungs are clear. No evidence of pleural effusion or pneumothorax. IMPRESSION: Cardiomegaly without acute abnormality. ACT 112: Negative or not required by law. Electronically signed by: Jabier Junior M.D. 04/08/2022 8:[address] 04/08/22 20:19 CT angio head w con, CT angio neck with con, CT head/brain wo con CLINICAL HISTORY: transient confusion, aphasia TECHNIQUE: Contiguous axial CT images of the head were acquired from the base of the skull to the vertex without intravenous contrast administration. CT angiography of the head and neck was performed following intravenous administration of iodinated contrast. Coronal and sagittal MIPS were obtained from the axial data set and were submitted for review. Automated dose lowering techniques and/or adjustment according to patient size were utilized for this examination. All measurements were calculated based on NASCET criteria. CT DOSE: 1023.35 mGy.cm Comparison: None available at the time of this dictation. FINDINGS: CT head: There is no acute intracranial hemorrhage or evidence of acute territorial infarction. No shift of the midline structures, mass effect, or extra-axial abnormalities are shown. Lungs and soft tissues are unremarkable. CTA Neck: A 3 vessel aortic arch is shown. Atherosclerotic plaque is present in the aortic arch. There is no plaque at the origins of the innominate, left and right common carotid, or left subclavian arteries. The common carotid, external carotid, cervical segments of the internal carotid arteries, and the cervical segments of the vertebral arteries are patent without hemodynamically significant stenosis. The vertebral arteries are codominant. CTA Head: The anterior and posterior cerebral circulations are patent. No hemodynamically significant stenosis, aneurysm, dissection, or arteriovenous malformation is shown. Atherosclerotic disease is noted. IMPRESSION: 1. No acute intracranial hemorrhage, evidence of acute territorial infarction, or other acute intracranial disease process. 2. No occlusion, hemodynamically significant stenosis, or dissection in the major cervical arteries. 3. No occlusion, hemodynamically significant stenosis, aneurysm, dissection, or arteriovenous malformation in the major intracranial arteries. Assessment of stenosis of the internal carotid arteries is based on NASCET criteria. ACT 112: Negative or not required by law. Electronically signed by: Jabier Junior M.D. 04/08/2022 9:13 PM Head CTA 04/08/22 20:19 CT angio head w con, CT angio neck with con, CT head/brain wo con CLINICAL HISTORY: transient confusion, aphasia TECHNIQUE: Contiguous axial CT images of the head were acquired from the base of the skull to the vertex without intravenous contrast administration. CT angiography of the head and neck was performed following intravenous administration of iodinated contrast. Coronal and sagittal MIPS were obtained from the axial data set and were submitted for review. Automated dose lowering techniques and/or adjustment according to patient size were utilized for this examination. All measurements were calculated based on NASCET criteria. CT DOSE: 1023.35 mGy.cm Comparison: None available at the time of this dictation. FINDINGS: CT head: There is no acute intracranial hemorrhage or evidence of acute territorial infarction. No shift of the midline structures, mass effect, or extra-axial abnormalities are shown. Lungs and soft tissues are unremarkable. CTA Neck: A 3 vessel aortic arch is shown. Atherosclerotic plaque is present in the aortic arch. There is no plaque at the origins of the innominate, left and right common carotid, or left subclavian arteries. The common carotid, external carotid, cervical segments of the internal carotid arteries, and the cervical segments of the vertebral arteries are patent without hemodynamically significant stenosis. The vertebral arteries are codominant. CTA Head: The anterior and posterior cerebral circulations are patent. No hemodynamically significant stenosis, aneurysm, dissection, or arteriovenous malformation is shown. Atherosclerotic disease is noted. IMPRESSION: 1. No acute intracranial hemorrhage, evidence of acute territorial infarction, or other acute intracranial disease process. 2. No occlusion, hemodynamically significant stenosis, or dissection in the major cervical arteries. 3. No occlusion, hemodynamically significant stenosis, aneurysm, dissection, or arteriovenous malformation in the major intracranial arteries. Assessment of stenosis of the internal carotid arteries is based on NASCET criteria. ACT 112: Negative or not required by law. Electronically signed by: Jabier Junior M.D. 04/08/2022 9:13 PM Neck CTA 04/08/22 20:19 CT angio head w con, CT angio neck with con, CT head/brain wo con CLINICAL HISTORY: transient confusion, aphasia TECHNIQUE: Contiguous axial CT images of the head were acquired from the base of the skull to the vertex without intravenous contrast administration. CT angiography of the head and neck was performed following intravenous administration of iodinated contrast. Coronal and sagittal MIPS were obtained from the axial data set and were submitted for review. Automated dose lowering techniques and/or adjustment according to patient size were utilized for this examination. All measurements were calculated based on NASCET criteria. CT DOSE: 1023.35 mGy.cm Comparison: None available at the time of this dictation. FINDINGS: CT head: There is no acute intracranial hemorrhage or evidence of acute terr itorial infarction. No shift of the midline structures, mass effect, or extra- axial abnormalities are shown. Lungs and soft tissues are unremarkable. CTA Neck: A 3 vessel aortic arch is shown. Atherosclerotic plaque is present in the aortic arch. There is no plaque at the origins of the innominate, left and right common carotid, or left subclavian arteries. The common carotid, external carotid, cervical segments of the internal carotid arteries, and the cervical segments of the vertebral arteries are patent without hemodynamically significant stenosis. The vertebral arteries are codominant. CTA Head: The anterior and posterior cerebral circulations are patent. No hemodynamically significant stenosis, aneurysm, dissection, or arteriovenous malformation is shown. Atherosclerotic disease is noted. IMPRESSION: 1. No acute intracranial hemorrhage, evidence of acute territorial infarction, or other acute intracranial disease process. 2. No occlusion, hemodynamically significant stenosis, or dissection in the major cervical arteries. 3. No occlusion, hemodynamically significant stenosis, aneurysm, dissection, or arteriovenous malformation in the major intracranial arteries. Assessment of stenosis of the internal carotid arteries is based on NASCET criteria. ACT 112: Negative or not required by law. Electronically signed by: Jabier Junior M.D. 04/08/2022 9:13 PM Brain MRI 04/09/22 02:48 MRI OF THE BRAIN WITHOUT AND WITH IV CONTRAST CLINICAL HISTORY: Stroke like symptoms. COMPARISON STUDY: Head CT and CTA of the head April 08, 2022. TECHNIQUE: Utilizing a 1.5 Jennifer magnet and dedicated coil, multiplanar, multiecho imaging of the brain was performed pre and postcontrast administration. IV administration of 9 mL of Gadavist contrast was uneventful. FINDINGS: There are no foci of restricted diffusion to suggest acute infarct. No acute intracranial hemorrhage, midline shift or mass effect is present. Brain v olume is normal. Ventricular system is normal. Basal cisterns are patent. Flow- voids for the major intracranial vessels are present. No intracranial mass or pathologic enhancement. White matter T2 hyperintense foci suggest small vessel disease. Calvarial signal is normal. Orbits are unremarkable. There is no evidence for sinusitis. There is no mastoid fluid. IMPRESSION: 1. No acute intracranial findings. 2. No intracranial mass or pathologic enhancement. ACT 112: Negative or not required by law. Electronically signed by: Davey Fong M.D. 04/09/2022 10:36 AM TTE-- Unremarkable (1) HTN (hypertension) Hypertension type: unspecified Qualified Code(s): I10 - Essential (primary) hypertension (2) Type 2 diabetes mellitus Diabetes mellitus usp insulin use: without usp use Diabetes mellitus complication status: without complication Qualified Code(s): E11.9 - Type 2 diabetes mellitus without complications
--- NOTE | 2022-04-09 15:19 | Hospitalist Progress Note ---
Date of Service April 09, 2022 Assessment & Plan (1) Stroke-like symptom: Plan: Admitted with strokelike symptoms Likely TIA and the symptoms resolved this morning CT scans and MRI are unremarkable Echo reviewed : The interatrial septum is intact with no evidence of atrial septal defect, left atrium is moderately dilated, right atrium is moderately dilated, the left ventricle is normal in size with EF of 50 to 55%, right ventricle systolic function is normal, trace aortic regurgitation, there is moderate mitral regurgitation and moderate tricuspid regurgitation No more strokelike symptoms and/or any other neuro logical symptoms Was evaluated by neurologist and advised can go home on same medications Will have outpatient EEG and neurology follow-up (2) Atrial fibrillation: Plan: Rate is minimally elevated We will continue current medications (3) Hypertension: Plan: Blood pressure was noted to be high Her losartan has been increased to 50 mg twice a day for better blood pressure control Next action would be to add hydrochlorothiazide as per the operations assistant (4) Dyslipidemia: Plan: Continue statin (5) Type 2 diabetes mellitus: Plan: Continue current medications (6) CAD (coronary artery disease): Plan: Has a stent in the LAD No cardiac symptoms She will be discharged home this afternoon Admission and Anticipated Discharge Date Admission Date: April 09, 2022 Subjective 04/09/2022 The patient was seen and examined in telemetry unit She was admitted with TIA-like symptoms with very high blood pressure Condition resolved and she does not have any symptoms during examination Relevant investigations came out to be unremarkable and she will be discharged home this afternoon Review of Systems Review of Systems: All systems reviewed and are unremarkable except as noted below Physical Exam Physical Exam: No apparent distress at rest Constitutional: well developed, well nourished and average body habitus; not ill appearing Eyes: PERRL, conjunctivae normal, anicteric sclerae ENMT: external ear and nose normal, oropharynx normal Neck: trachea midline, no thyromegaly Respiratory: no respiratory distress Auscultation: lungs clear to auscultation bilaterally Cardiovascular: Rate/Rhythm: regular rate, regular rhythm and + tachycardic Heart Sounds: normal S1 and normal S2; no murmur Extremities: + edema Gastrointestinal (Abdomen): Inspection/Auscultation: normal bowel sounds; abdomen not distended Percussion/Palpation: abdomen soft; abdomen nontender Musculoskeletal: No acute arthritis in any joint Neurologic: normal touch/pain/proprioception, normal sensation to monofilament and moves all extremities; no focal motor deficits Psychiatric: A+Ox3, euthymic affect Lymphatic: no cervical or axillary lymphadenopathy Results & Data Results & Data ([facility]) Vital Signs (Past 12 Hours) Vital Signs Temp Pulse Pulse Resp BP Pulse Ox 04/09/22 11:00 36.8 C 101 H 18 142/72 H 97 04/09/22 10:41 95 H 04/09/22 08:00 37.0 C 83 18 149/79 H 97 04/09/22 03:17 83 Laboratory Results Short CBC 04/08/22 04/09/22 Range/Units 19:11 05:14 WBC 6.60 4.93 (4.8-10.8) K/ul Hgb 11.9 L 10.9 L (12.0-16.0) g/dl Hct 37.6 34.4 (34.1-44.9) % Plt Count 248 224 (130-400) K/uL BMP 04/08/22 04/09/22 19:11 05:14 Sodium 138 139 Potassium 4.4 4.1 Chloride 103 104 Carbon Dioxide 27 29 BUN 18 14 Creatinine 0.87 0.75 Glucose 89 82 Calcium 9.7 9.4 Liver Function 04/08/22 Range/Units 19:11 Total Bilirubin 0.5 (0.2-1.0) mg/dl AST 18 (13-39) U/L ALT 11 (7-52) U/L Alkaline Phosphatase 118 H (34-104) U/L Albumin 4.2 (3.4-5.0) gm/dl Urine 04/08/22 Range/Units 19:11 Urine Color Yellow Urine Appearance Clear (Clear) Urine pH 5.0 (4.5-7.5) Ur Specific [place] 1.013 (1.000-1.030) Urine Protein Negative (Negative) Urine Glucose (UA) Negative (Negative) Medications Administered Current Inpatient Medications Acetaminophen (Acetaminophen 325 Mg Tab) 650 mg PO Q4H PRN PRN Reason: Pain or Fever Stop: 05/09/22 02:47 Apixaban (Apixaban 5 Mg Tablet) 5 mg PO BID KEEGAN Stop: 05/09/22 08:59 Last Admin: 04/09/22 08:57 Dose: 5 mg Aspirin (Aspirin 81 Mg Ectab) 81 mg PO DAILY KEEGAN Stop: 05/09/22 08:59 Last Admin: 04/09/22 08:57 Dose: 81 mg Cyanocobalamin (Cyanocobalamin (B-12) 500 Mcg Tablet) 1,000 mcg PO DAILY KEEGAN Stop: 05/09/22 08:59 Last Admin: 04/09/22 08:57 Dose: 1,000 mcg Dextrose (Dextrose 50% 50 Ml Syringe) 25 - 50 ml IV UD PRN; Protocol PRN Reason: Hypoglycemia Protocol Stop: 05/09/22 03:44 Digoxin (Digoxin 0.125 Mg Tab) 0.125 mg PO DAILY@1600 KEEGAN Stop: 05/09/22 15:59 Glucagon (Glucagon For Inj 1 Mg Vial) 1 mg IM UD PRN; Protocol PRN Reason: Hypoglycemia Protocol Stop: 05/09/22 03:44 Glucose (Glucose 40% Gel 15 Gm Tube) 15 - 30 gm PO UD PRN; Protocol PRN Reason: Hypoglycemia Protocol Stop: 05/09/22 03:44 Glucose (Glucose 10 Tab/Tube) 4 - 8 tab PO UD PRN; Protocol PRN Reason: Hypoglycemia Protocol Stop: 05/09/22 03:44 Hydroxychloroquine Sulfate (Hydroxychloroquine Sulfate 200 Mg Tab) 400 mg PO HS [facility] Stop: 05/09/22 20:59 Insulin Aspart (Insulin Aspart Per Unit) 0 units SC ACHS KEEGAN Stop: 05/09/22 07:29 Last Admin: 04/09/22 12:45 Dose: 2 units Labetalol HCl (Labetalol Hcl Iv 5 Mg/Ml 20ml) 10 mg IV Q4H PRN PRN Reason: Hypertension Stop: 05/09/22 02:47 Levothyroxine Sodium (Levothyroxine Sodium 50 Mcg Tablet) 50 mcg PO DAILYBB KEEGAN Stop: 05/09/22 06:29 Last Admin: 04/09/22 06:17 Dose: 50 mcg Losartan Potassium (Losartan Potassium 50 Mg Tab) 50 mg PO BID KEEGAN Stop: 05/09/22 10:59 Last Admin: 04/09/22 12:36 Dose: 50 mg Metoprolol Succinate (Metoprolol Succ 50mg Ext Rel Tab) 200 mg PO QAM KEEGAN Stop: 05/09/22 08:59 Last Admin: 04/09/22 08:57 Dose: 200 mg Miscellaneous (Atrovent 0.03% - Order Awaiting Action) 1 each N/A QS KEEGAN Stop: 05/09/22 07:59 Last Admin: 04/09/22 14:39 Dose: Not Given Miscellaneous (Carbohydrates For Hypoglycemia ) 15 - 30 gm PO UD PRN PRN Reason: Hypoglycemia Treatment Stop: 05/09/22 03:44 Miscellaneous Information (Pharmacist Discharge Med Rec Consult) 1 each N/A UD PRN PRN Reason: Consult Stop: 05/09/22 02:47 Nitroglycerin (Nitroglycerin Sl 0.4 Mg/Tab Tab) 0.4 mg SL UD PRN PRN Reason: Chest Pain Stop: 05/09/22 02:47 Rosuvastatin Calcium (Rosuvastatin Calcium 10 Mg Tab) 10 mg PO QPM [facility] Stop: 05/09/22 20:59 (1) Type 2 diabetes mellitus Diabetes mellitus intermediate manager insulin use: without fci use Diabetes mellitus complication status: without complication Qualified Code(s): E11.9 - Type 2 diabetes mellitus without complications
[2022-04-09] MEDS ORDERED: DIGOXIN 0.125 MG TAB PO SCH (16:00)
[2022-04-09] MEDS ORDERED: STROKE PATIENT DISCHARGE STA (16:09)
--- NOTE | 2022-04-09 16:14 | Communication Note ---
Date of Service: April 09, 2022 By CMS guidelines, a determination that the admission or continued stay is not medically necessary has been made by a member of the Utilization Review c ommittee and a physician for this hospital stay. Therefore, a Code 44 will be completed and the inpatient admission will be changed to outpatient. DO CATHY Bonner Physician member
--- NOTE | 2022-04-09 17:50 | Discharge Summary ---
Date of Service April 09, 2022 Admission HPI Per Admitting Provider DICTATED BY:Jose Dumont MD DATE OF ADMISSION: 04/09/2022. CHIEF COMPLAINT: Stroke-like symptoms. HISTORY OF PRESENT ILLNESS: A 71-year-old female with past medical history significant for type 2 diabetes, hypothyroidism, hyperlipidemia, chronic atrial fibrillation, hypertension, obesity, status post left hip replacement, who presents with stroke-like symptoms. The patient lives with her . She ambulates with a cane. At around 3 p.m. on 04/08/2022, she was working in the garage when she suddenly felt word finding difficulty and difficulty making sentences and she came to the ER. Her symptoms lasted for about 1-1/2 to 2 hours. Workup in the ER is unrevealing so far. The patient had similar episode on 03/02/2022 when she was in [place] . At that time, she woke up at 2 a.m. with similar symptoms and she went to the ER by 3 a.m. Symptoms lasted similarly for 1-1/2 to 2 hours .She had workup done and she was treated for UTI and got discharged in the morning. Currently does not have any urinary symptoms. No burning micturition, no frequent urination. Denies any fever or chills. Denies any headache, no dizziness, no blurred visions or double visions, no earache. She has some runny nose. No sore throat. She has some occasional cough with whitish phlegm. No difficulty swallowing. No chest pain, no shortness of breath. No nausea, no vomiting, no abdominal pain. Normal bowel and bladder movements. Denies any blood in stools or black stools. No swelling in the legs. Admission Exam Per Admitting Provider GENERAL: The patient is of moderate build, not in acute distress. VITAL SIGNS: Temperature 36.8, pulse 114, respiratory rate 18, blood pressure 194/113, oxygen 94% on room air. HEENT: Pupils equal, round and reactive to light. Oral mucosa is moist. NECK: No JVD. No neck masses. CARDIOVASCULAR: S1 and S2 heard. Regular rate and rhythm. No murmur, no arvizu p. RESPIRATORY SYSTEM: Normal AP diameter. No accessory muscle use. No wheezing, no crackles. ABDOMEN: Soft, bowel sounds present, nontender, nondistended. CENTRAL NERVOUS SYSTEM: Alert and oriented. No facial droop seen. Speech is clear. Power 5/5 in all extremities. Coordination of movements normal. No pronator drift. Sensation is intact. EXTREMITIES: Mild pedal edema present, no erythema seen. Principal Diagnosis TIA, uncontrolled hypertension, atrial fibrillation, type 2 diabetes Discharge Exam No apparent distress at rest Constitutional well developed, well nourished and average body habitus; not ill appearing Eyes PERRL, conjunctivae normal, anicteric sclerae ENMT external ear and nose normal, oropharynx normal Neck trachea midline, no thyromegaly Respiratory no respiratory distress Auscultation: lungs clear to auscultation bilaterally Cardiovascular Rate/Rhythm: regular rate, regular rhythm and + tachycardic Heart Sounds: normal S1 and normal S2; no murmur Extremities: + edema Gastrointestinal (Abdomen) Inspection/Auscultation: normal bowel sounds; abdomen not distended Percussion/Palpation: abdomen soft; abdomen nontender Neurologic normal touch/pain/proprioception, normal sensation to monofilament and moves all extremities; no focal motor deficits Psychiatric A+Ox3, euthymic affect Lymphatic no cervical or axillary lymphadenopathy Discharge Data Allergies Allergy/AdvReac Type Severity Reaction Status Date / Time dofetilide [From Tikosyn] AdvReac Tachycardia Verified 04/08/22 20:36 Consultations 04/08/22 23:23 ED Decision to Admit Stat 04/09/22 08:00 Consult Cardiology Routine Consult Neurology Routine Ordered Studies 04/08/22 20:19 CT angio head w con Stat CT angio neck with con Stat CT head/brain wo con Stat 04/09/22 02:48 MR brain wo/w con Urgent Hospital Course (1) Stroke-like symptom: Admitted with strokelike symptoms Likely TIA and the symptoms resolved this morning CT scans and MRI are unremarkable Echo reviewed : The interatrial septum is intact with no evidence of atrial septal defect, left atrium is moderately dilated, right atrium is moderately dilated, the left ventricle is normal in size with EF of 50 to 55%, right ventricle systolic function is normal, trace aortic regurgitation, there is moderate mitral regurgitation and moderate tricuspid regurgitation No more strokelike symptoms and/or any other neuro logical symptoms Was evaluated by neurologist and advised can go home on same medications Will have outpatient EEG and neurology follow-up (2) Atrial fibrillation: Rate is minimally elevated We will continue current medications (3) Hypertension: Blood pressure was noted to be high Her losartan has been increased to 50 mg twice a day for better blood pressure control Next action would be to add hydrochlorothiazide as per the biological science technician (4) Dyslipidemia: Continue statin (5) Type 2 diabetes mellitus: Continue current medications (6) CAD (coronary artery disease): Has a stent in the LAD No cardiac symptoms She will be discharged home this afternoon Total Time Total Time Spent Total Time Spent (In Minutes): 35 minutes Discharge Plan Discharge Items Patient Disposition: Home - Self-Care Reason For Visit: STROKE LIKE SYMPTOMS Discharge Diagnosis: TIA, uncontrolled hypertension, atrial fibrillation, type 2 diabetes Condition on Discharge: Good Activity: Resume your previous activity Non-emergency contact: Primary Care Provider Call non-emergency contact if: you have any medication questions and your symptoms worsen Follow-up/Referrals: Chantelle Natarajan PA-C [Physician Food And Nutrition Teacher] - (Date & Time 05/14/2022 11:20 AM Provider Chantelle Natarajan PA-C Department [facility]rology [facility] ) Thompson Berger MD [Primary Care Provider] - (Date & Time 04/17/2022 11:00 AM Provider Thompson Berger III, MD Department Family Practice [facility] ) Diet: Carb Consistent or DM2, Heart Healthy and Low Sodium (2gm) Addtl Attending Provider Instructions: Please take precautions to avoid fall Only change any medication is the dose of losartan has been increased to 50 mg twice a day No other change in her medication She will a follow-up appointment with primary care provider and also neurologist She will have an EEG as an outpatient Pending Studies at Discharge: No Stand-Alone Forms: My [employer], Smoking Cessation Medications and DC Order Prescriptions: New losartan 50 mg Tablet 50 mg PO BID Qty: 60 0RF Continued levothyroxine [Synthroid] 50 mcg Tablet 50 mcg PO QAM cyanocobalamin (vitamin B-12) 1,000 mcg Capsule 1,000 mcg PO DAILY Rybelsus 7 mg Tablet 7 mg PO DAILY aspirin [Ecotrin Low Strength] 81 mg tablet,delayed release (DR/EC) 81 mg PO DAILY Qty: 30 2RF Rx Instructions: always take with a full stomach hydroxychloroquine 200 mg tablet 400 mg PO HS Rx Instructions: take before betime ipratropium bromide 21 mcg (0.03 %) spray,non-aerosol 2 spray INTRANASAL QID Eliquis 5 mg tablet 5 mg PO BID digoxin [Digitek] 125 mcg (0.125 mg) tablet 0.125 mg PO QAM rosuvastatin 10 mg tablet 10 mg PO QPM metoprolol succinate 200 mg tablet extended release 24 hr 200 mg PO QAM metformin 500 mg tablet extended release 24 hr 1,000 mg PO AMPM Rx Instructions: take with meals Discontinued losartan 50 mg tablet 50 mg PO HS Discharge Orders: Discharge Order (Routine); Ordered 04/09/22 Ordered By: Sharon Parson/Other Patient Handouts: Understanding Deep Vein Thrombosis, DVT Complications, Stroke and Heart Disease, Symptoms of Stroke, What Is Ischemic Stroke?, What Is a TIA?, Stroke: Taking Medicines, 5 Steps for Eating Healthier, Stroke: Resources and Support, Stroke: Self-Care Admission Data Admit Date/Time: 04/09/22 00:18 Attending Provider: Sharon Schultz Admit Provider: Jose Dumont Primary Care Provider: Thompson Berger Other Providers: Jose Dumont ; Jerrod Jerez ; Robert Marino ; Sheldon Dowling ; Karl Millan ; Mo Trevino ; Kaushik Aguayo ; Brandee Vanegas ; Chantelle Lima ; Carmen Matthews ; Jesse Lopez ; Ethan Holman ; Glenn Cartwright ; Kalani Bernardo ; Chantelle Natarajan ; Thompson Espinoza ; Chantelle Yuen ; Dirk Crowder ; Maria Elena Moses ; Shon Lopez ; Jayla Duvall ; Martina Black Other Interventions: Discharge Summary Assessment (RN) Last Done: 04/09/22 16:18
[2022-04-09] MEDS ORDERED: ROSUVASTATIN CALCIUM 10 MG TAB PO SCH (21:00)
[2022-04-09] MEDS ORDERED: HYDROXYCHLOROQUINE SULFATE 200 MG TAB PO SCH (21:00)
--- NOTE | 2022-04-10 05:28 | Electrocardiogram Report ---
Test Reason : Blood Pressure : / mmHG Vent. Rate : 100 BPM Atrial Rate : 091 BPM P-R Int : 000 ms QRS Dur : 100 ms QT Int : 326 ms P-R-T Axes : 000 034 -55 degrees QTc Int : 420 ms Atrial fibrillation Nonspecific ST and T wave abnormality Abnormal ECG When compared with ECG of 18-MAY-2020 06:47, ST no longer depressed in Anterior leads T wave inversion no longer evident in Anterolateral leads Confirmed by Ajit Maier ([id number]) on 04/10/2022 5:28:10 AM Referred By: REFERRED SELF Confirmed By:Ajit Maier
== END 2022-04-09 16:53 | disposition home or self-care (01) ==
LOC: ED 18:42 → 2S 04-09 00:18 → INTOOBSV 04-09 00:18 → 2S 04-09 02:19
DX: E11.9 Type 2 diabetes mellitus without complications; E78.5 Hyperlipidemia, unspecified; Z79.84 Long term (current) use of oral hypoglycemic drugs; I48.20 Chronic atrial fibrillation, unspecified; I25.10 Atherosclerotic heart disease of native coronary artery without angina pectoris; I10 Essential (primary) hypertension; Z79.01 Long term (current) use of anticoagulants; Z79.82 Long term (current) use of aspirin; Z87.891 Personal history of nicotine dependence; R29.90 Unspecified symptoms and signs involving the nervous system; Z79.899 Other long term (current) drug therapy; Z88.8 Allergy status to other drugs, medicaments and biological substances